=== PATIENT | male | born 1935 | race Caucasian/White ===

== ENCOUNTER 2017-04-17 14:35 | Observation (INO) | payer MEDICARE ==
[2017-04-17 14:56] VITALS: BMI 33.3
[2017-04-17] MEDS ORDERED: Senokot 8.6 MG TAB PO PRN (14:56)
[2017-04-17] MEDS ORDERED: Dextrose 50% Abboject 50 ML SYRINGE SLOW IVP PRN (14:56)
[2017-04-17] MEDS ORDERED: Eucerin (Mineral Oil/Petrolatum,White) 30 gm Jar TOP PRN (14:56)
[2017-04-17] MEDS ORDERED: Loratadine 10 MG TAB PO PRN (14:56)
[2017-04-17] MEDS ORDERED: Acetaminophen 325 MG TAB PO PRN (14:56)
[2017-04-17] MEDS ORDERED: Milk Of Magnesia 30 ML UDCUP PO PRN (14:56)
[2017-04-17] MEDS ORDERED: Sodium Chloride 0.65% Nasal 44 ML BOT EA NARE PRN (14:56)
[2017-04-17] MEDS ORDERED: HYDROcodone/Acetaminophen 5/325 mg Tablet PO PRN (14:56)
[2017-04-17] MEDS ORDERED: Loperamide HCl 2 MG CAP PO PRN (14:56)
[2017-04-17] MEDS ORDERED: Dextrose 5% in Water 1,000 ML IV PRN (14:56)
[2017-04-17] MEDS ORDERED: Artificial Tear Sol 15 ML BOT EA EYE PRN (14:56)
[2017-04-17] MEDS ORDERED: Diabetic Tussin 200 MG/10 ML UDCUP PO PRN (14:56)
[2017-04-17] MEDS ORDERED: HumaLOG 300 UNITS/3 ML VIAL SC PRN ×2 (14:56)
[2017-04-17] MEDS ORDERED: Chloraseptic Spray 180 ml Bottle PO PRN (14:56)
[2017-04-17] MEDS ORDERED: Mag-Al 1200 mg/1200 mg/30 ML UDCUP PO PRN (14:56)
[2017-04-17] MEDS ORDERED: hydrALAZINE 20 MG/ML VIAL SLOW IVP PRN (14:56)
[2017-04-17] MEDS ORDERED: Nitroglycerin 0.4 MG TAB (25 Tab Bottle) SL PRN (14:56)
[2017-04-17] MEDS ORDERED: Ondansetron HCl/PF 4 MG/2 ML Vial IVP PRN (14:56)
[2017-04-17] MEDS ORDERED: Ondansetron ODT 4 MG TAB PO PRN (14:56)
[2017-04-17] MEDS ORDERED: Zolpidem Tartrate 5 MG TAB PO PRN (14:56)
--- NOTE | 2017-04-17 16:20 | HP ---
PRIMARY CARE PHYSICIAN: Dr. Quiroz. PRIMARY OFFSET PRINTING OPERATOR: Dr. Hernandez. REASON FOR ADMISSION: Transfer from [facility] to our hospital for evaluation of synco pe. HISTORY OF PRESENT ILLNESS: An 82-year-old male with a history of coronary artery disease with multi ple stents as well as diabetes, hypertension, and dyslipidemia who was evaluated yesterday at the [facility] for near syncopal episode. The patient reports that yesterday when he went to post-office to send his package. He was fine when he entered the post office, but when he was standing, all of suddenly he felt nausea, diaphoreses an d he felt hot. He felt as if he is going to pass out and that is why he sat down, but he did not fee l any better. People around him helped him and he sat down on the chair where he had incontinence. Paramedics were called, but subsequently patient was taken outside of post-office and he felt a littl e bit better, but again he was feeling nausea and he was feeling very weak and that is why he was jus en to a local emergency room. At local emergency room, patient had routine vitals which was unremarkable. The patient was planned for admission to our hospital, but our hospital was full and that is why he was observed for a few ho urs at [facility]. As per report, the patient was bradycardic and they were thinking t hat the patient's syncopal episode was cardiogenic and that is why they decided to send him to our spital for further evaluation and Cardiology consultation. ER physician recommended full admission o n transfer. This morning, the patient was having chest pain and that was improved with nitroglycerin. PAST MEDICAL HISTORY: Hypertension, coronary artery disease with several stents, diabetes type 2, dy slipidemia, gastroesophageal reflux disease, osteoarthritis, benign enlargement of prostate, chronic iron deficiency anemia, chronic kidney disease stage 3, chronic diastolic heart failure, history of s olitary pulmonary nodule. PAST SURGICAL HISTORY: Tonsillectomy in 1949, hemorrhoidectomy in 1985, right total knee replacement in 2002, EGD in 2003, coronary angiography in 2004 with a stent placement, cataract surgery in 2006, cholecystectomy in 2008, repeat EGD in 2013, ablation by Dr. Ruby in [place] in 2015, colonoscopy in 2014. PAST PSYCHIATRIC HISTORY: Reviewed and negative. FAMILY HISTORY: The patient's father by age of 75 from [place]. Mother by age of 90 from [place] an d diagnosed with heart disease. Family history positive for heart disease, arthritis, hypertension, and CAD. Patient's sister from lung cancer. Patient has one daughter diagnosed with leukemia a nd alive. SOCIAL HISTORY: Patient is a former smoker. He stopped smoking in 1984. He denies any alcohol abus e. He denies any illicit drug abuse. He drinks 1 cup of coffee every morning. He is retired and he is . He lives by himself alone. He does not do any significant exercise and he does not hav e any pets. His daughter is surrogate decision maker. ALLERGIES: No known drug allergies. CURRENT HOME MEDICATIONS: Aspirin 81 mg p.o. daily, vitamin D3 of 1000 units p.o. daily, coenzyme Q1 0 of 200 mg p.o. daily, Flomax 0.4 mg p.o. at bedtime, Zocor 20 mg p.o. at bedtime, multivitamin 1 ta blet p.o. daily, metoprolol 100 mg twice daily, pravastatin 30 mg p.o. daily, Imdur 60 mg p.o. daily, Levemir 30 units subcutaneous daily, folic acid 1 mg p.o. daily, Flonase nasal spray daily, vitamin B12 of 1000 mcg p.o. daily, Plavix 75 mg p.o. daily. REVIEW OF SYSTEMS: The following complete review of systems was negative, unless otherwise mentioned in the HPI or below: Constitutional: Weight loss or gain, ability to conduct usual activities. Skin: Rash, itching. Eyes: Double vision, pain. ENT/Mouth: Nose bleeding, neck stiffness, pain, tenderness. Cardiovascular: Palpitations, dyspnea on exertion, orthopnea. Respiratory: Shortness of breath, wheezing, cough, hemoptysis, fever or night sweats. Gastrointestinal: Poor appetite, abdominal pain, heartburn, nausea, vomiting, constipation, or diarr hea. Genitourinary: Urgency, frequency, dysuria, nocturia. Musculoskeletal: Pain, swelling. Neurologic/Psychiatric: Anxiety, depression. Allergy/Immunologic: Skin rash, bleeding tendency. Please see my HPI for pertinent positives and negatives. All other review of systems reviewed and ne gative except as mentioned in the HPI. PHYSICAL EXAMINATION: VITAL SIGNS: Currently, temperature 97.8, pulse 57, respiratory rate 16, saturation 99%, blood press ure 160/71, weight 212 pound. GENERAL: Patient is currently alert, awake, no obvious acute distress. HEENT: Normocephalic, atraumatic. Eyes: Pupils round, reactive to light. Extraocular muscles inta ct. ENT: Oropharynx within normal limits. Moist mucous membranes. No oral lesions. No pharyngeal eryt bertha, no exudates. NECK: Supple, no JVD, no thyromegaly, no carotid bruit. LUNGS: Clear to auscultation without any rhonchi or rales. CARDIAC: S1, S2 regular. No murmur, no gallop, no rub. ABDOMEN: Soft, bowel sounds present, nontender, nondistended. No organomegaly, no mass, no suprapub ic tenderness. BACK: Unremarkable, no CVA tenderness. EXTREMITIES: Upper extremity passive movements of all joints are normal. Lower extremities no edema . Good peripheral pulsation. SKIN: No skin rash. HEMATOLOGICAL: No lymphadenopathy. PSYCHIATRIC: Normal affect. SIGNIFICANT LABS: CBC: WBC 9.6, hemoglobin 12.8, platelets 153. INR 1.1. BMP: Sodium 139, potass ium 3.9, chloride 106, carbon dioxide 19, BUN 17, creatinine 1.42, glucose 161, calcium 9.7. LFT: A ST 21, ALT 17, alkaline phosphatase 87, albumin 4.5. Cardiac enzymes negative. Chest x-ray based on my review, no acute cardiopulmonary process. EKG showing sinus arrhythmia, complete right bundle br anch block pattern, T-wave changes in lead 3. EMERGENCY ROOM COURSE: Patient was given yesterday aspirin in the emergency room and Zofran 4 mg. ASSESSMENT AND PLAN: 1. Near syncope. Differential diagnosis is bradycardia related versus vasovagal episode versus orth ostatic hypotension versus hypoglycemia. At this point, the patient will require admission to teleme try floor. We will do orthostatic vitals. We will obtain echocardiography to rule out any structura l and functional abnormality. We will monitor on telemetry floor for any kind of arrhythmia. We zayda l monitor for hypoglycemia. Primary care physician sent him here for cardiology evaluation and that is why we will consult Cardiology. I do not think that this patient will need any kind of pacemaker placement given his bradycardia, probably related with beta huang use. 2. Chest pain, rule out acute coronary syndrome. We will do serial cardiac enzymes x3 and will rule out acute coronary syndrome. This patient has severe coronary artery disease and several stents uday mandy. We will defer further decision to cardiology. 3. Hypertension. We will rule out orthostatic hypotension and we will resume patient's home medicat ion. 4. Diabetes type 2. We will watch for hypoglycemia. We will continue insulin as per sliding scale protocol. Diabetic diet will be given and will resume patient's long-acting insulin as per home dosa ge. 5. Dyslipidemia. We will continue Zocor 20 mg p.o. at bedtime and check lipid profile tomorrow morn ing. 6. Gastroesophageal reflux disease. We will continue Pepcid 20 mg p.o. twice daily. 7. Benign enlargement of prostate. We will continue Flomax 0.4 mg p.o. daily. 8. Iron deficiency anemia. We will continue ferrous sulfate 325 mg p.o. daily, folic acid 1 mg p.o. daily, vitamin B12 of 1000 mcg p.o. daily and patient's stool for guaiac is negative. 9. Chronic kidney disease, stage 3. We will monitor renal function. We will avoid nephrotoxic agen ts. 10. History of congestive heart failure. We will repeat echocardiography to assess ejection fractio n and other structural abnormality. Currently, patient is euvolemic. 11. Deep venous thrombosis prophylaxis. Lovenox 40 mg subcutaneously daily. 12. Gastrointestinal prophylaxis. Pepcid 20 mg p.o. daily. CODE STATUS: Patient is FULL CODE. Patient's daughter is surrogate decision maker. Disposition plan based on clinical course. Plan of care discussed with the patient in detail.
[2017-04-17] MEDS ORDERED: Cholestyramine/Aspartame 4 gm Packet PO PRN (18:19)
[2017-04-17 19:04] LABS: Troponin I Less than 0.010 ng/mL (< 0.028)
--- NOTE | 2017-04-17 20:05 | CON ---
DATE OF CONSULTATION: 04/17/2017 REASON FOR CONSULTATION: Presyncope. PRIMARY MOBILE BATTERY TECHNICIAN: Leena Hernandez M.D. HISTORY OF PRESENT ILLNESS: Mr. Townsend is a very pleasant 82-year-old gentleman with a previous histo ry of CAD, status post stent placement. He recently presented with a syncopal episode. He states he began with lightheadedness, dizziness and had a near syncopal episode. He states during the episode , he defecated. No loss of urine. He presented to the emergency room for further disposition. He w as found to be bradycardic and therefore transferred to [facility]. No chest pain or pressure note d. He did have a stress study performed in 09/2016 that was negative for ischemia. PAST MEDICAL HISTORY: CAD, hypertension, diabetes mellitus, hyperlipidemia, acid reflux, osteoarthri tis, BPH, chronic kidney disease, diastolic dysfunction, tonsillectomy, hemorrhoidectomy, total knee surgery, cholecystectomy, colonoscopy. FAMILY HISTORY: Positive for CAD. SOCIAL HISTORY: No current tobacco or alcohol use. ALLERGIES: None. HOME MEDICATIONS: Include aspirin, metoprolol, vitamin D, Zocor, pravastatin, folic acid, Plavix, vi tamin B12, Flonase, Imdur, multivitamin, Coenzyme Q. REVIEW OF SYSTEMS: A 10-point review of systems is reviewed and is as above, otherwise negative. PHYSICAL EXAMINATION: VITAL SIGNS: Blood pressure 116/71, pulse 57, temperature 97.8. GENERAL: Patient is a pleasant male who is in no acute distress. The patient appears his stated age. NEUROLOGIC: The patient is alert and oriented times 3 with no focal neurologic deficits. HEENT: Sclerae without icterus. Mouth has moist mucous membranes with normal pallor. NECK: No JVD. Carotid upstroke brisk. No bruits bilaterally. LUNGS: Clear to auscultation with unlabored respirations. BACK: No scoliosis or kyphosis. CARDIAC: Regular rate and rhythm with normal S1 and S2. No S3 or S4 noted. No significant rubs, murmurs, thrills, or gallops noted throughout the precordium. PMI is not displaced. There is no parasternal heave. ABDOMEN: Soft, nontender, nondistended. No peritoneal signs present. No hepatosplenomegaly. No abnormal striae. EXTREMITIES: 2+ femoral and 2+ dorsalis pedis pulses. No cyanosis, clubbing, or edema. SKIN: No gross abnormalities. PERTINENT LABORATORY DATA: Hemoglobin 11. Creatinine 1.36. IMPRESSION: 1. Presyncope. 2. Coronary artery disease. RECOMMENDATIONS: His whole symptoms really sounded cardiac in origin. His EKG shows right bundle br anch block with left axis deviation. This could certainly be the initial findings of sick sinus synd rai. We would recommend an echo with Doppler. We would also recommend monitoring overnight. If he has no significant dysrhythmias, would therefore recommend a 3-week event recorder. We would decrea se metoprolol 100 mg 1 p.o. b.i.d. to 50 mg b.i.d.
[2017-04-17] MEDS ORDERED: Tamsulosin HCl 0.4 MG CAP PO SCH (21:00)
[2017-04-17] MEDS ORDERED: (Arginine [L-Arginine] 500 MG) PO SCH (21:00)
[2017-04-17] MEDS ORDERED: Atorvastatin Calcium 10 MG TAB PO SCH (21:00)
[2017-04-17 22:23] LABS: Troponin I Less than 0.010 ng/mL (< 0.028)
[2017-04-18 05:30] LABS: #Eosinphils 0.5 thou/uL (0.0-0.7); #Lymphocytes 1.3 thou/uL (1.20-3.40); #Monocytes 0.9 thou/uL (0.11-0.59); #Neutrophils 5.1 thou/uL (1.40-6.50); %Basophils 0.4 % (0.0-1.0); %Eosinophils 6.7 % (0.0-10.0); %Lymphocytes 16.9 % (21.0-51.0); Hematocrit 35.6 % (42.0-52.0); Mean Platelet Volume 9.8 fL (7.4-10.4); Red Blood Cell (RBC) Count 3.76 mill/uL (4.70-6.10); White Blood Cell (WBC) Count 7.8 thou/uL (4.8-10.8)
[2017-04-18 05:50] LABS: ALT (SGPT) 14 U/L (8-55); AST (SGOT) 18 U/L (5-34); Alkaline Phosphatase 79 U/L (40-150); Anion Gap 11 mmol/L (10-20); BUN (Urea Nitrogen) 21 mg/dL (8.4-25.7); Bilirubin, Total 0.4 mg/dL (0.2-1.2); Calc. Creatinine Clearance 56 mL/min (70-130); Calcium 9.9 mg/dL (7.8-10.44); Carbon Dioxide 27 mmol/L (23-31); Chloride 105 mmol/L (98-107); Cholesterol 130 mg/dl (< 200 Desired); Estimated GFR-MDRD 49; Globulin 2.9 g/dL (2.4-3.5); LDL Cholesterol, Calculated 53 mg/dL; Protein, Total 6.9 g/dL (5.8-8.1)
[2017-04-18 05:52] LABS: Troponin I Less than 0.010 ng/mL (< 0.028)
[2017-04-18] MEDS ORDERED: Folic Acid 1 MG TAB PO SCH (09:00)
[2017-04-18] MEDS ORDERED: Cyanocobalamin (Vitamin B-12) 1,000 MCG TAB PO SCH (09:00)
[2017-04-18] MEDS ORDERED: Enoxaparin Sodium 40 MG/0.4 ML SYRINGE SC SCH (09:00)
[2017-04-18] MEDS ORDERED: Non-Formulary Item 1 EACH (Insulin Detemir [Levemir Flextouch] 30 UNIT) SC SCH (09:00)
[2017-04-18] MEDS ORDERED: Clopidogrel Bisulfate 75 MG TAB PO SCH (09:00)
[2017-04-18] MEDS ORDERED: Fluticasone Propionate Nasal Spray 16 gm Bottle NASAL SCH (09:00)
[2017-04-18] MEDS ORDERED: Famotidine 20 MG TAB PO SCH (09:00)
[2017-04-18] MEDS ORDERED: Prenatal Vitamin 1 TAB PO SCH (09:00)
[2017-04-18] MEDS ORDERED: Insulin Detemir 100 UNITS/ML 30 UNITS in Pre-Filled Syringe 1 EACH SC SCH (09:00)
[2017-04-18] MEDS ORDERED: Ubidecarenone 50 MG CAP PO SCH (09:00)
[2017-04-18] MEDS ORDERED: Metoprolol Tartrate 50 MG TAB PO SCH ×2 (10:30→21:00)
--- NOTE | 2017-04-18 10:54 | DIS ---
DATE OF ADMISSION: 04/17/2017 DATE OF DISCHARGE: 04/18/2017 PRIMARY CARE PHYSICIAN: Dr. Douglas Quiroz. DISCHARGE DISPOSITION: Home. PRIMARY DISCHARGE DIAGNOSES: 1. Near syncope/syncope. 2. Chest pain, ruled out acute coronary syndrome. SECONDARY DISCHARGE DIAGNOSES: Obesity, hypertension, gastroesophageal reflux disease, dyslipidemia, diabetes type 2, chronic kidney disease stage 3, coronary artery disease with multiple stents, benig n enlargement of prostate. PRIMARY PROCEDURE/OPERATION: None. RADIOLOGICAL INVESTIGATION: Patient had chest x-ray at the [facility], which was normal. SIGNIFICANT LABS: WBC 7.8, hemoglobin 12.0, platelets 124. Sodium 139, potassium 3.9, BUN 21, creat inine 1.39, glucose 161, calcium 9.9. LFT normal. Triglycerides 237. Cholesterol 130, LDL 53, HDL 30, BNP 130.9. Cardiac enzymes negative x3. DISCHARGE MEDICATIONS: L-arginine 500 mg p.o. b.i.d., aspirin 81 mg p.o. daily, vitamin D3 1000 unit s p.o. daily, cholestyramine 4 grams p.o. b.i.d. p.r.n., Plavix 75 mg p.o. daily, vitamin B12 1200 mc g p.o. daily, Flonase nasal spray daily, folic acid 1 mg p.o. daily, Levemir insulin 30 units subQ da joel, Imdur 60 mg p.o. daily, Prevacid 30 mg p.o. daily, vitamin 1 tablet p.o. daily, Zocor 2 0 mg p.o. at bedtime, Flomax 0.4 mg p.o. at bedtime and coenzyme Q10 200 mg p.o. daily. CONTRAINDICATIONS: None. CODE STATUS: FULL CODE. INPATIENT CONSULTANTS: Dr. Kieran Rosen was consulted while in hospital. He was suspecting sic k sinus syndrome and he recommended Holter monitoring for 3 weeks and he recommended to reduce dose o f metoprolol to 50 mg p.o. b.i.d. CONTRAINDICATION: None. CODE STATUS: FULL CODE. DISCHARGE PLAN: Post hospital, the patient will follow up with primary care physician as well as car diologist. HOSPITAL COURSE: An 82-year-old male with the above mentioned medical problems, who was initially ev aluated at [facility]. The patient initially went to [facility] for near synco pal episode. Patient was at the post office and all of suddenly, he was feeling diaphoresis, dizzine ss and nausea. Subsequently, he also had episode of chest pain. He was evaluated at the local emerg ency room and subsequently he was overnight observed at [facility] for further evaluation and ca rdiology evaluation. This patient was sent to our hospital. The next day, we kept him as an observa tion status. We did serial cardiac enzymes x3. The patient was taking metoprolol 100 mg p.o. twice daily and that is why he was having bradycardia episode, but that medication was discontinued. Then, his pulse was going to above 100. We consulted Cardiology and they are suspecting patient may have early signs of tachybrady syndrome versus sick sinus syndrome. At this point, Cardiology recommends the event recorder for 3 weeks and subsequently the patient will follow up with Cardiology to decide whether he needs pacemaker or not. While in hospital, we ruled out acute coronary syndrome. His telemetry showing is now sinus tachycar carlene and that is why we reduced dose of metoprolol to 50 mg twice daily. Rest of medication was chucky nued as per previous. The patient is seen and examined at bedside today. REVIEW OF SYSTEMS: Reviewed and negative. PHYSICAL EXAMINATION: VITAL SIGNS: Currently, temperature 98.4, pulse 89, respiratory rate 20, saturation 97%, blood pres sure 144/91. Weight 212 pounds. GENERAL: The patient is currently alert, oriented, no acute distress. HEAD: Normocephalic, atraumatic. LUNGS: Clear to auscultation without any rhonchi. CARDIAC: S1, S2 regular without any significant murmur. ABDOMEN: Soft and benign without any tenderness. EXTREMITIES: No edema. NEUROLOGIC: Nonfocal examination. At this point, Cardiology trying to arrange event recorder for 3 weeks and once that arranged, then t his patient is medically stable for discharge, we advised patient to reduced dose of metoprolol as ab ove as long as Cardiology okay, then we will consider discharging him later on today. The patient's behavioral science chair will decide whether he needs a pacemaker or not in the future.
[2017-04-18] MEDS ORDERED: Metoprolol Tartrate 25 MG TAB PO SCH (11:15)
--- NOTE | 2017-04-18 12:13 | PDOC.PN ---
- Subjective Encounter Start Date: 04/18/17 Encounter Start Time: 11:00 -: old records requested/rev Patient seen and examined. No new complaints. No overnight events - Objective Resuscitation Status: Resuscitation Status FULL:Full Resuscitation MAR Reviewed: Yes Vital Signs & Weight: Vital Signs (12 hours) Temp Pulse Resp BP BP BP BP 04/18/17 10:55 98.0 F 114 H 24 H 158/80 H 04/18/17 09:10 122 H 24 H 144/91 H 04/18/17 07:20 98.4 F 89 20 137/74 135/71 150/77 H 04/18/17 04:35 85 18 132/68 Pulse Ox 04/18/17 10:55 95 04/18/17 09:10 97 04/18/17 07:20 95 04/18/17 04:35 95 Weight Weight 212 lb 14.4 oz I&O: 04/17/17 04/18/17 04/19/17 06:59 06:59 06:59 Intake Total 240 Balance 240 Result Diagrams: 04/18/17 05:09 04/18/17 05:09 Additional Labs: Accuchecks 04/18/17 04/17/17 04/17/17 11:36 20:28 16:49 POC Glucose 206 H 165 H 135 H Radiology Reviewed by me: Yes EKG Reviewed by me: Yes (sinus tachy) Phys Exam - Physical Examination Constitutional: NAD HEENT: PERRLA, moist MMs, sclera anicteric Neck: no JVD, supple Respiratory: no wheezing, no rales, no rhonchi Cardiovascular: RRR, no significant murmur, no rub Gastrointestinal: soft, non-tender, no distention, positive bowel sounds Musculoskeletal: no edema, pulses present Neurological: non-focal, normal sensation Psychiatric: normal affect, A&O x 3 Skin: no rash, normal turgor Dx/Plan (1) Chest pain Code(s): R07.9 - CHEST PAIN, UNSPECIFIED Status: Acute (2) Syncope Code(s): R55 - SYNCOPE AND COLLAPSE Status: Acute (3) BPH (benign prostatic hyperplasia) Code(s): N40.0 - BENIGN PROSTATIC HYPERPLASIA WITHOUT LOWER URINRY TRACT SYMP Status: Chronic (4) CAD (coronary artery disease) Code(s): I25.10 - ATHSCL HEART DISEASE OF [place] CORONARY ARTERY W/O ANG PCTRS Status: Chronic (5) CKD (chronic kidney disease), stage III Code(s): N18.3 - CHRONIC KIDNEY DISEASE, STAGE 3 (MODERATE) Status: Chronic (6) Diabetes type 2, controlled Code(s): E11.9 - TYPE 2 DIABETES MELLITUS WITHOUT COMPLICATIONS Status: Chronic (7) Dyslipidemia Code(s): E78.5 - HYPERLIPIDEMIA, UNSPECIFIED Status: Chronic (8) GERD (gastroesophageal reflux disease) Code(s): K21.9 - GASTRO-ESOPHAGEAL REFLUX DISEASE WITHOUT ESOPHAGITIS Status: Chronic (9) Hypertension Code(s): I10 - ESSENTIAL (PRIMARY) HYPERTENSION Status: Chronic (10) Obesity (BMI 30.0-34.9) Code(s): E66.9 - OBESITY, UNSPECIFIED Status: Chronic - Plan cont current plan of care * medication reviewed as below * symptomatic treatment * see discharge summery * medically stable for discharge.. Review of Systems - Review of Systems ENT: negative: Ear Pain, Ear Discharge, Nose Pain, Nose Discharge, Nose Congestion, Mouth Pain, Mouth Swelling, Throat Pain, Throat Swelling, Other Respiratory: negative: Cough, Dry, Shortness of Breath, Hemoptysis, SOB with Excertion, Pleuritic Pain, Sputum, Wheezing Cardiovascular: negative: chest pain, palpitations, orthopnea, paroxysmal nocturnal dyspnea, edema, light headedness, other Gastrointestinal: negative: Nausea, Vomiting, Abdominal Pain, Diarrhea, Constipation, Melena, Hematochezia, Other Genitourinary: negative: Dysuria, Frequency, Incontinence, Hematuria, Retention , Other Musculoskeletal: negative: Neck Pain, Shoulder Pain, Arm Pain, Back Pain, Hand Pain, Leg Pain, Foot Pain, Other Skin: negative: Rash, Lesions, Jason, Bruising, Other - Medications/Allergies Allergies/Adverse Reactions: Allergies Allergy/AdvReac Type Severity Reaction Status Date / Time No Known Drug Allergies Allergy Verified 07/13/14 17:32 Medications: Current Medications Acetaminophen (Tylenol) 650 mg PO Q4H PRN PRN Reason: Headache/Fever or Pain Last Admin: 04/18/17 09:36 Dose: 650 mg Hydrocodone Bitart/Acetaminophen ([place] 5/325) 1 tab PO Q4H PRN PRN Reason: Moderate Pain (4-6) Al Hydroxide/Mg Hydroxide (Maalox) 30 ml PO Q6H PRN PRN Reason: Heartburn or Indigestion Artificial Tears (Tears Renewed 15ml Bottle) 0 drop EA EYE PRN PRN PRN Reason: Dry Eyes Aspirin (Aspirin Chewable) 81 mg PO DAILY [facility] Last Admin: 04/18/17 08:40 Dose: 81 mg Atorvastatin Calcium (Lipitor) 10 mg PO HS [facility] Last Admin: 04/17/17 21:45 Dose: 10 mg Cholecalciferol (Vitamin D3) 1,000 units PO DAILY [facility] Last Admin: 04/18/17 08:37 Dose: 1,000 units Cholestyramine Resin (Questran Light) 0 gm PO BIDPRN PRN PRN Reason: Diarrhea/Loose Stools Clopidogrel Bisulfate (Plavix) 75 mg PO DAILY [facility] Last Admin: 04/18/17 08:39 Dose: 75 mg Coenzyme Q10 (Coenzyme Q10) 200 mg PO DAILY [facility] Last Admin: 04/18/17 08:38 Dose: 200 mg Cyanocobalamin (Vitamin B-12) 1,200 mcg PO DAILY [facility] Last Admin: 04/18/17 08:37 Dose: 1,200 mcg Dextrose/Water (Dextrose 50%) 25 gm SLOW IVP PRN PRN PRN Reason: Hypoglycemia Enoxaparin Sodium (Lovenox) 40 mg SC 0900 [facility] Last Admin: 04/18/17 09:48 Dose: 40 mg Famotidine (Pepcid) 20 mg PO DAILY [facility] Last Admin: 04/18/17 08:40 Dose: 20 mg Fluticasone Propionate (Flonase Nasal [place]) 0 gm NASAL DAILY [facility] Last Admin: 04/18/17 09:49 Dose: Not Given Folic Acid (Folvite) 1 mg PO DAILY [facility] Last Admin: 04/18/17 08:39 Dose: 1 mg Glucagon (Glucagon) 1 mg IM PRN PRN PRN Reason: Hypoglycemia Guaifenesin (Robitussin Sf) 200 mg PO Q4H PRN PRN Reason: Cough Hydralazine HCl (Apresoline) 10 mg SLOW IVP Q4H PRN PRN Reason: Systolic BP > 180 Dextrose/Water (D5w) 1,000 mls @ 0 mls/hr IV .Q0M PRN; As Directed PRN Reason: Hypoglycemia Insulin Detemir 30 units/ (Miscellaneous Medication) 0.3 mls @ 0 mls/hr [facility] Last Admin: 04/18/17 09:48 Dose: 0.3 mls Insulin Human Lispro (Humalog) 0 units SC .MODERATE SLIDING SC PRN PRN Reason: Moderate [place] Scale Insulin Human Lispro (Humalog) 0 units SC .BEDTIME SLIDING SC PRN PRN Reason: Bedtime [place] Scale Isosorbide Mononitrate (Imdur) 60 mg PO DAILY [facility] Last Admin: 04/18/17 08:39 Dose: 60 mg Loperamide HCl (Imodium) 2 mg PO PRN PRN PRN Reason: Diarrhea/Loose Stools Loratadine (Claritin) 10 mg PO DAILYPRN PRN PRN Reason: Sinus Symptoms Magnesium Hydroxide (Milk Of Magnesium) 30 ml PO DAILYPRN PRN PRN Reason: Constipation Metoprolol Tartrate (Lopressor) 50 mg PO BID [facility] Metoprolol Tartrate (Lopressor) 50 mg PO NOW [facility] Stop: 04/18/17 12:30 Last Admin: 04/18/17 11:40 Dose: 50 mg Mineral Oil/White Petrolatum (Eucerin Cream) 0 gm TOP BIDPRN PRN PRN Reason: Dry Skin Nitroglycerin (Nitrostat) 0.4 mg SL Q5MIN PRN PRN Reason: Chest Pain Ondansetron HCl (Zofran Odt) 4 mg PO Q6H PRN PRN Reason: Nausea/Vomiting Ondansetron HCl (Zofran) 4 mg IVP Q6H PRN PRN Reason: Nausea/Vomiting Phenol (Chloraseptic [place] 180 Ml Bot) 0 ml PO PRN PRN PRN Reason: Sore Throat Multivit/Folic Acid/Iron ( Vitamin) 1 tab PO DAILY [facility] Last Admin: 04/18/17 08:37 Dose: 1 tab Senna (Senokot) 2 tab PO HSPRN PRN PRN Reason: Constipation Sodium Chloride ([place] Nasal [place] 0.65%) 0 ml EA NARE QIDPRN PRN PRN Reason: Nasal Congestion Tamsulosin HCl (Flomax) 0.4 mg PO HS [facility] Last Admin: 04/17/17 21:45 Dose: 0.4 mg Zolpidem Tartrate (Ambien) 5 mg PO HSPRN PRN PRN Reason: Insomnia
--- NOTE | 2017-04-18 12:52 | ULT ---
BILATERAL CAROTID DUPLEX ULTRASOUND: HISTORY: Headache. TECHNIQUE: Kelly scale ultrasound with color flow and spectral Doppler imaging of the extracranial carotid artery systems is performed bilaterally. FINDINGS: There is plaque formation noted on both sides in the common carotid, internal carotid, and external c arotid arteries. The peak systolic velocity in the right ICA measures 84 cm/s with an end-diastolic velocity of 22 cm/ s and a systolic ratio of 1.0. The peak systolic velocity in the left ICA measures 112 cm/s with an end-diastolic velocity of 14 cm/ s and a systolic ratio of 2.1. Flow in both vertebral arteries remains antegrade. The peak systolic velocity in the right [place] measures 254 cm/s and in the left ECA measures 198 cm/s. IMPRESSION: 1. No evidence of hemodynamically significant stenosis in either internal carotid artery. 2. High-grade stenotic changes in the external carotid arteries on either side. POS: [facility]
--- NOTE | 2017-04-18 14:27 | EKG ---
Test Reason : Blood Pressure : / mmHG Vent. Rate : 064 BPM Atrial Rate : 064 BPM P-R Int : 218 ms QRS Dur : 152 ms QT Int : 486 ms P-R-T Axes : 028 270 040 degrees QTc Int : 501 ms Sinus rhythm with marked sinus arrhythmia with 1st degree A-V block Left axis deviation Right bundle branch block Abnormal ECG Confirmed by ILENE PATTON ([id number]) on 04/18/2017 2:27:16 PM Referred By: BEN Confirmed By:ILENE PATTON
[2017-04-18 15:50] VITALS: BP 119/61; TEMP 97.5
--- NOTE | 2017-04-18 15:55 | EKG ---
Test Reason : RHYTHM CHG Blood Pressure : / mmHG Vent. Rate : 111 BPM Atrial Rate : 111 BPM P-R Int : 000 ms QRS Dur : 138 ms QT Int : 364 ms P-R-T Axes : 000 257 043 degrees QTc Int : 495 ms Sinus tachycardia Right bundle branch block Abnormal ECG Confirmed by ILENE PATTON ([id number]) on 04/18/2017 3:55:35 PM Referred By: BEN Confirmed By:ILENE PATTON
--- NOTE | 2017-04-18 19:32 | PRG ---
DATE OF SERVICE: 04/18/2017 SUBJECTIVE: Mr. Townsend is doing well. He did state he was not feeling well. His heart rate increase d to 114. After reviewing his telemetry monitoring, this appeared to be sinus tachycardia. This was confirmed on EKG. His metoprolol was decreased from 100 mg 1 p.o. b.i.d. down to 50 mg 1 p.o. b.i.d . OBJECTIVE: VITAL SIGNS: Blood pressure 150/77 and temperature 98.4. LUNGS: Clear to auscultation. HEART: Regular rate and rhythm. ABDOMEN: Soft, nontender and nondistended. EXTREMITIES: No edema. IMPRESSION: 1. Presyncope. 2. Tachycardia. 3. Coronary artery disease. RECOMMENDATIONS: Mr. Townsend is doing well. His echo appears to be within normal limits. It will be okay from my standpoint to DC home with a 3-week of event recorder to assess for any significant dysr hythmias. His last stress test was performed in 09/2016 and it was negative for ischemia. He says h leonarda has undergone multiple catheterizations and is not interested in proceeding with any further. Ther e were no current indications.
== END 2017-04-18 17:20 | disposition home or self-care (01) ==
LOC: 2SW 14:35 → INTOOBSV 14:35
PROVIDERS: ADMIT Internal Medicine; ATTEND Internal Medicine
DX: R55 Syncope and collapse (principal); R07.9 Chest pain, unspecified; K21.9 Gastro-esophageal reflux disease without esophagitis; E78.5 Hyperlipidemia, unspecified; I25.10 Atherosclerotic heart disease of native coronary artery without angina pectoris; N40.0 Benign prostatic hyperplasia without lower urinary tract symptoms; I12.9 Hypertensive chronic kidney disease with stage 1 through stage 4 chronic kidney disease, or unspecified chronic kidney disease; E11.22 Type 2 diabetes mellitus with diabetic chronic kidney disease; N18.3 Chronic kidney disease, stage 3 (moderate); D63.1 Anemia in chronic kidney disease; M19.90 Unspecified osteoarthritis, unspecified site; E66.9 Obesity, unspecified; Z68.33 Body mass index [BMI] 33.0-33.9, adult; Z87.891 Personal history of nicotine dependence; Z82.49 Family history of ischemic heart disease and other diseases of the circulatory system; Z80.1 Family history of malignant neoplasm of trachea, bronchus and lung; Z95.5 Presence of coronary angioplasty implant and graft; Z96.651 Presence of right artificial knee joint; Z90.49 Acquired absence of other specified parts of digestive tract; Z90.89 Acquired absence of other organs; Z98.890 Other specified postprocedural states; Z79.82 Long term (current) use of aspirin; Z79.4 Long term (current) use of insulin; Z79.51 Long term (current) use of inhaled steroids; Z79.01 Long term (current) use of anticoagulants; Z79.899 Other long term (current) drug therapy
CPT/HCPCS: 80053; 80061; 82553 ×3; 82962 ×2; 83880; 84484 ×3; 85025; 93005 ×2; 93306; 93880; 96372; G0378; G0379; 36415; 36416; 93010; J1650; J1815

== ENCOUNTER 2017-09-12 12:40 | Inpatient (IN) | payer MEDICARE ==
[~2017-09-12 12:40] MED LIST: ISOVUE-370 76%-LOCM 1 ML ONE
[2017-09-12] MEDS ORDERED: Acetaminophen 500 MG TAB ONE ×2 (13:38→13:41)
[2017-09-12 13:51] LABS: Hemoglobin 12.7 g/dL (14.0-18.0); Mean Corpuscular HGB CONC 34.4 g/dL (32.0-36.0); Mean Corpuscular Hemoglobin 32.2 pg (27.0-31.0); Mean Corpuscular Volume 93.5 fl (80.0-94.0); Mean Platelet Volume 9.8 fL (7.4-10.4); Platelet Count 107 thou/uL (130-400); Red Blood Cell (RBC) Count 3.96 mill/uL (4.70-6.10); White Blood Cell (WBC) Count 13.8 thou/uL (4.8-10.8)
[2017-09-12 14:14] LABS: Band 12 % (5-11); Eosinophils 1 % (0-10); Large Platelets SLIGHT; Lymphocytes 2 % (21-51); MDiff Complete? YES; Monocytes 10 % (0-10); Neutrophil 75 % (42-75); PLT Morphology Comment Appears Decreased; RBC Morphology Normal
[2017-09-12 14:16] LABS: ALT (SGPT) 20 U/L (8-55); AST (SGOT) 42 U/L (5-34); Albumin 4.1 g/dL (3.4-4.8); Alkaline Phosphatase 94 U/L (40-150); Anion Gap 17 mmol/L (10-20); BUN (Urea Nitrogen) 14 mg/dL (8.4-25.7); Bilirubin, Total 0.9 mg/dL (0.2-1.2); Calc. Creatinine Clearance 0 mL/min (70-130); Calcium 9.2 mg/dL (7.8-10.44); Carbon Dioxide 19 mmol/L (23-31); Chloride 105 mmol/L (98-107); Estimated GFR-MDRD 51; Globulin 3.5 g/dL (2.4-3.5); Glucose 163 mg/dL (83-110); Potassium 4.7 mmol/L (3.5-5.1); Protein, Total 7.6 g/dL (5.8-8.1); Sodium 136 mmol/L (136-145)
[2017-09-12 14:19] LABS: Bilirubin Negative (Negative); Blood, Urine Negative (Negative); Clarity CLEAR (Clear); Glucose, Urine (Dipstick) Negative (Negative); Leukocyte Negative (Negative); Nitrite Negative (Negative); Protein, Urine (Dipstick) 100 mg/dL (Neg-Trace); Specific Gravity, Urine 1.026 (1.002-1.036); Urobilinogen 0.2 mg/dL (0.2-1.0)
[2017-09-12 14:21] LABS: Bacteria/HPF None Seen HPF (None Seen); Hyaline Casts/LPF 4-6 HYALINE CAST LPF (0-3 Hyaline); Pathc Cast-AUWi Flag 0.58 (0-2.49); RBC/HPF 0-3 HPF (0-3); Squamous Epithelial 0-3 HPF (0-3); WBC/HPF 0-3 HPF (0-3)
--- NOTE | 2017-09-12 14:37 | RAD ---
SINGLE VIEW OF THE CHEST: COMPARISON: 04/16/17. HISTORY: Nausea, vomiting, chest pain, and shortness of breath. FINDINGS: A single view of the chest is limited secondary to rotation. The cardiomediastinal silhouette is upp er limits of normal in size. There is stable deviation of the trachea to the right. No consolidatio n, mass, or pleural effusion are seen. IMPRESSION: No evidence of acute cardiopulmonary disease. POS: [facility]
[2017-09-12] MEDS ORDERED: Piperacillin/Tazobactam 4.5 GM VIAL ONE (15:36)
--- NOTE | 2017-09-12 15:44 | CT ---
CT OF THE ABDOMEN AND PELVIS WITH CONTRAST: 09/12/17 COMPARISON: 04/18/16. HISTORY: Abdominal pain, black diarrhea, nausea, vomiting and chest pain. TECHNIQUE: Multiple contiguous axial images were obtained in a CT of the abdomen and pelvis with contrast. PO co ntrast was administered but not allowed sufficient time to traverse to the level of the colon. Moser l reformats were performed. FINDINGS: The patient is status post cholecystectomy. The kidneys are small. No focal renal abnormality is seen . The liver, adrenal glands, spleen, and pancreas are unremarkable. There is thickening in the wall of the right colon and transverse colon with subtle surrounding stran ding change. A few scattered diverticula are seen throughout the colon. The small bowel and appendix are unremarkable. No abdominal or pelvic lymphadenopathy are seen. Atherosclerotic calcifications are seen in the aorta . Degenerative changes are seen in the spine. The abdominal wall soft tissues and visualized inferior t horax are unremarkable. IMPRESSION: 1. There appears to be colitis of the right colon and transverse colon. This is nonspecific and could be secondary to an infectious or inflammatory colitis. Ischemic colitis is also possible but le ss likely. 2. Diverticulosis without evidence of acute diverticulitis. POS: [facility]
[2017-09-12] MEDS ORDERED: Pantoprazole 80 MG, Admixture Fee 1 EACH in Sodium Chloride 0.9% 100 ML IVP SCH (15:45)
[2017-09-12] MEDS ORDERED: Zolpidem Tartrate 5 MG TAB PO PRN (16:28)
[2017-09-12] MEDS ORDERED: Ondansetron HCl/PF 4 MG/2 ML Vial IVP PRN (16:28)
[2017-09-12] MEDS ORDERED: Dextrose 50% Abboject 50 ML SYRINGE SLOW IVP PRN (16:43)
[2017-09-12] MEDS ORDERED: Dextrose 5% in Water 1,000 ML IV PRN (16:43)
[2017-09-12] MEDS ORDERED: Pantoprazole 80 MG in Sodium Chloride 0.9% 100 ML IVPB SCH (16:45)
[2017-09-12 17:11] LABS: Hemoglobin A1c 6.3 % (4.0-6.0)
[2017-09-12] MEDS ORDERED: Acetaminophen 325 MG TAB ONE (17:28)
[2017-09-12] MEDS ORDERED: diphenhydrAMINE 50 MG/ML VIAL ONE (17:39)
[2017-09-12] MEDS ORDERED: Ondansetron ODT 4 MG TAB ONE (17:52)
[2017-09-12] MEDS ORDERED: Ibuprofen 200 MG TAB ONE (18:21)
[2017-09-12 18:42] LABS: CKMB 0.6 ng/mL (0-6.6); Troponin I 0.027 ng/mL (< 0.028)
[2017-09-12] MEDS ORDERED: Famotidine 20 MG TAB PO SCH (21:00)
--- NOTE | 2017-09-12 21:47 | HP ---
DATE OF ADMISSION: 09/12/2017 CHIEF COMPLAINT: GI bleed, fevers, abdominal pain, and chest pain. HISTORY OF PRESENT ILLNESS: This is an 82-year-old male who is being admitted to the [facility] of GI bleed. Family is at bedside who also provides history. Per patient's family, the patient boucher s had black tarry stools for years on and apparently takes aspirin, Plavix. Does have a history of 1 4 different stents at different locations and cardiac vessels; however, all family members state that they were told that the stents were not in the larger vessels, but more so on the smaller vessels of the heart. The patient sees Dr. Hernandez, last seen a few months back, cannot recall when, but more tony n 6 months ago, also states that he has had a colonoscopy in the past and was told that he does have diverticular disease. The patient states that he came in because of weakness and worsening of his ab dominal pain, and GI bleed and then he noted to have some chest discomfort as well. Patient at this point in time, denies any nausea, vomiting, diarrhea, constipation, chest pain, fevers, or shortness of breath. Family at the bedside. The patient states that this has not been before and he was told that it was a diverticular bleed. However, last time, the chest pain was not present. Patient other garibay denies any alleviating or aggravating factors. No other associated symptoms or complaints. The patient was seen and examined in the ER with family at bedside. All questions were answered. ALLERGIES: No known drug allergies. PAST MEDICAL HISTORY: Positive for GI bleed; hypertension; GERD; diabetes mellitus, type 2; coronary artery disease as well as dyslipidemia; CKD, stage 3; and BPH. FAMILY HISTORY: Positive for hypertension and diabetes on both sides. HOME MEDICATIONS: See MAR. SOCIAL HISTORY: Denies any smoking or drinking. Apparently has quit smoking 30 years ago, was a hea vy smoker before that. REVIEW OF SYSTEMS: All systems reviewed. Pertinent positives in the HPI, otherwise negative. PHYSICAL EXAMINATION: VITAL SIGNS: Blood pressure is 136/88, temperature was apparently slightly elevated at 101 at presen tation to the ER, respiratory rate of 18. O2 saturations at 98% on room air. GENERAL: The patient in no acute distress, lying in bed. HEENT: Pupils are equal, round, and react to light and accommodation. Normocephalic, atraumatic. E xtraocular muscles intact. Nontender, mobile thyroid appreciated. Oral cavity moist and pink. CARDIOVASCULAR: Regular rate and rhythm. S1 and S2. No murmurs, rubs, or gallops appreciated. PULMONARY: Aerating well. No acute respiratory distress. Clear to auscultation bilaterally. No wh eezing, rales, or rhonchi appreciated. ABDOMEN: Positive bowel sounds, soft, nontender on the right side; however, slight tenderness to pal pation of the left flank and left lower quadrant. The patient does not have any rebound or guarding noted. EXTREMITIES: 2+ peripheral pulses. Trace edema in bilateral lower extremities, otherwise no cyanosi s or clubbing noted. NEUROLOGIC: Cranial nerves II through XII intact. No loss of motor or sensory function. SKIN: Normal turgor in all salazar and no rashes noted. LABORATORY AND DIAGNOSTIC DATA: CBC: WBC count slightly elevated at 14, hemoglobin normal at 13, he matocrit 37, platelet count of 107. Basic metabolic panel shows a creatinine of 1.33, bicarbonate of 19, glucose of 163, otherwise normal chemistry panel. Urinalysis positive for protein as well as hy mirza casts. Patient had a chest x-ray performed as well as a CT of the abdomen. The patient's CT o f the abdomen shows that there is some colitis present, more on the transverse and the right colon as well as diverticulosis with no evidence of acute diverticulitis. Chest x-ray shows no acute cardiop ulmonary disease processes. ASSESSMENT: 1. Abdominal pain. 2. Colitis. 3. Gastrointestinal bleed. 4. Coronary artery disease. 5. Hypertension. 6. Hyperlipidemia. 7. Diabetes mellitus type 2. PLAN: Admit to telemetry to Internal Medicine team. We will consult GI. Place patient n.p.o. past midnight for probable scope. We will also consult Cardiology for evaluation and possible adjustment of his home medications. The patient's last stent according to the family was 10 years ago, perhaps the Plavix can be discontinued if okay with Cardiology. The patient is familiar with Dr. Hernandez. We w ill consult Dr. Hernandez for further input. Place the patient on Protonix drip. Serial troponins. We w ill obtain repeat hemoglobin in the evening as well as one tomorrow morning. Also, give the patient normal saline at 75 mL an hour. We will start the patient on Flagyl as well for the concern for coli tis. Obtain blood cultures, insulin for diabetes mellitus and we will obtain an A1c to see how well his blood sugars are controlled at home. Patient wishes to remain a FULL CODE at this point in time. Case and plan discussed with the patient and family at length. They understand and agree with this plan.
[2017-09-12 22:14] LABS: Hemoglobin 12.2 g/dL (14.0-18.0)
[2017-09-13 00:05] VITALS: BMI 24.0
[2017-09-13] MEDS: metroNIDAZOLE 500 MG in Premix Bag 1 BAG IVPB SCH ×4 (02:43→17:28)
[2017-09-13 06:06] LABS: Anion Gap 12 mmol/L (10-20); BUN (Urea Nitrogen) 16 mg/dL (8.4-25.7); Calc. Creatinine Clearance 49 mL/min (70-130); Calcium 8.7 mg/dL (7.8-10.44); Carbon Dioxide 20 mmol/L (23-31); Chloride 109 mmol/L (98-107); Estimated GFR-MDRD 50; Glucose 140 mg/dL (83-110); Potassium 3.3 mmol/L (3.5-5.1); Sodium 138 mmol/L (136-145)
[2017-09-13] MEDS: Sodium Chloride 0.9% 1,000 ML IV SCH (07:55)
[2017-09-13] MEDS: Simvastatin 20 MG TAB PO SCH ×2 (07:56→21:10)
[2017-09-13] MEDS: Tamsulosin HCl 0.4 MG CAP PO SCH ×2 (07:57→21:10)
[2017-09-13] MEDS: Folic Acid 1 MG TAB PO SCH (08:32)
[2017-09-13] MEDS: Clopidogrel Bisulfate 75 MG TAB PO SCH (08:32)
[2017-09-13 08:43] LABS: Band 27 % (5-11); Hemoglobin 12.3 g/dL (14.0-18.0); Lymphocytes 7 % (21-51); MDiff Complete? YES; Mean Corpuscular HGB CONC 33.9 g/dL (32.0-36.0); Mean Corpuscular Volume 94.3 fl (80.0-94.0); Mean Platelet Volume 9.4 fL (7.4-10.4); Monocytes 11 % (0-10); Neutrophil 54 % (42-75); PLT Morphology Comment Appears Decreased; Platelet Count 103 thou/uL (130-400); RBC Distribution Width 14.3 % (11.5-14.5); RBC Morphology Normal; Reactive Lymphocytes 1 % (0-10); Red Blood Cell (RBC) Count 3.84 mill/uL (4.70-6.10); White Blood Cell (WBC) Count 10.1 thou/uL (4.8-10.8)
[2017-09-13] MEDS: Insulin Glargine 30 UNITS in Pre-Filled Syringe 1 EACH SC SCH (08:48)
[2017-09-13] MEDS ORDERED: Non-Formulary Item 1 EACH (Insulin Detemir [Levemir Flextouch] 30 UNIT) SC SCH (09:00)
--- NOTE | 2017-09-13 11:35 | PQF ---
CLINICAL DOCUMENTATION IMPROVEMENT CLARIFICATION FORM: ICD-10 Updated PLEASE DO AN ADDENDUM TO THE PROGRESS NOTE WITH ANY DOCUMENTATION UPDATES OR ADDITIONS AND CARRY THROUGH TO DC SUMMARY. THANK YOU. DATE: 09/13/17 ATTN: DR. VASQUEZ Please exercise your independent, professional judgment in responding to the clarification form. Clinical indicators are provided on the bottom of this form for your review Please check appropriate box(es): [ x ] Sepsis due to: (Pna, UTI, gangrenous gall bladder, etc.) colitis____ Due to: [ ] Device (please specify) [ ] Implant [ ] Graft [ ] Infusion [ ] SIRS due to non-infectious process (please specify etiology) [ ] with organ dysfunction [ ] without organ dysfunction [ ] Severe sepsis with acute organ dysfunction of: (Examples: respiratory failure, encephalopathy, acute kidney failure, other) [ ] Septic Shock [ ] Localized infection without sepsis [ ] Other diagnosis [ ] Unable to determine In addition, please specify: Present on Admission (POA): [ x ] Yes [ ] No [ ] Unable to determine For continuity of documentation, please document condition throughout progress notes and discharge summary. Thank You. CLINICAL INDICATORS - SIGNS / SYMPTOMS / LABS ER NOTE: "SEPSIS" PULSE 135 RR 41 TEMP 103.2 WBC 13.8 RISKS: COLITIS MULTIPLE COMORBIDITIES ADVANCED AGE TREATMENT: IV FLUIDS (ER-PRESENT) IV VANCOMYCIN (ER) IV ZOSYN (ER) BLOOD AND STOOL CULTURES TELEMETRY MONITORING (This form is maintained as a part of the permanent medical record) 2014 [employer] All Rights Reserved [email or web address] Office: [phone] [facility]
--- NOTE | 2017-09-13 11:42 | PDOC.PN ---
- Subjective Encounter Start Date: 09/13/17 Encounter Start Time: 11:40 Patient seen and examined, EGD for today, continues to have black stools, no other issues, family at bedside, all questions answered. - Objective Vital Signs & Weight: Vital Signs (12 hours) Temp Pulse Resp BP Pulse Ox 09/13/17 03:44 99.3 F 96 16 141/63 H 09/13/17 00:00 97.1 F L 102 H 16 171/85 H 95 Weight Admit Weight 181 lb 14.4 oz Weight 181 lb 14.4 oz Result Diagrams: 09/13/17 05:29 09/13/17 05:29 Additional Labs: Accuchecks 09/13/17 09/12/17 09/12/17 06:51 21:35 17:12 POC Glucose 147 H 141 H 160 H Phys Exam - Physical Examination Constitutional: NAD HEENT: PERRLA, moist MMs, sclera anicteric Neck: no nodes, no JVD, supple, full ROM Respiratory: no wheezing, no rales, no rhonchi Cardiovascular: RRR, no significant murmur, no rub Gastrointestinal: soft, non-tender, no distention, positive bowel sounds Musculoskeletal: pulses present, edema present (trace B/L LE) Neurological: non-focal, normal sensation, moves all 4 limbs Psychiatric: normal affect, A&O x 3 Skin: no rash, normal turgor Dx/Plan (1) GI bleed Code(s): K92.2 - GASTROINTESTINAL HEMORRHAGE, UNSPECIFIED Status: Acute (2) CKD (chronic kidney disease), stage III Code(s): N18.3 - CHRONIC KIDNEY DISEASE, STAGE 3 (MODERATE) Status: Chronic (3) Diabetes type 2, controlled Code(s): E11.9 - TYPE 2 DIABETES MELLITUS WITHOUT COMPLICATIONS Status: Chronic (4) Dyslipidemia Code(s): E78.5 - HYPERLIPIDEMIA, UNSPECIFIED Status: Chronic (5) GERD (gastroesophageal reflux disease) Code(s): K21.9 - GASTRO-ESOPHAGEAL REFLUX DISEASE WITHOUT ESOPHAGITIS Status: Chronic (6) Hypertension Code(s): I10 - ESSENTIAL (PRIMARY) HYPERTENSION Status: Chronic (7) Obesity (BMI 30.0-34.9) Code(s): E66.9 - OBESITY, UNSPECIFIED Status: Chronic - Plan * EGD for today * cont abx * sepsis due to colitis, present at time of admission, cont abx for now * IVFs * no other changes * GI following * Hgb stable * case and plan d/w patient and family at length, they understand and agree with this plan
[2017-09-13] MEDS ORDERED: Lidocaine 1% PF 5 ML VIAL ONE (14:39)
[2017-09-13] MEDS ORDERED: PROPOFOL 200 MG/20 ML VIAL ONE (14:39)
[2017-09-13] MEDS ORDERED: Benzocaine 20% Spray 60 ML CAN ONE (14:49)
[2017-09-13 18:04] LABS: Troponin I 0.075 ng/mL (< 0.028)
[2017-09-13] MEDS: Pantoprazole 80 MG, Admixture Fee 1 EACH in Sodium Chloride 0.9% 100 ML IVPB SCH (19:17)
--- NOTE | 2017-09-13 22:41 | OP ---
DATE OF PROCEDURE: 09/13/2017 OPERATIVE PROCEDURES: 1. Esophagogastroduodenoscopy. 2. Esophageal dilation with Liu sizes 46, 48, 50 Austrian in diameter. PREOPERATIVE DIAGNOSES: History of black tarry stool over the last 48 hours and also history of dysp hagia intermittent. POSTOPERATIVE DIAGNOSES: 1. Esophageal ring, nonobstructing. 2. Markedly hypertrophied polypoid-appearing gastric mucosa. 3. Gastric polyps. No biopsies taken as he is on Plavix. 4. Normal duodenum. Because of history of dysphagia and also a ring in the esophagus, sterile dilation was carried out wi th Liu sizes 46, 48, and 50-Austrian without any resistance. PROCEDURE NOTE: The patient was placed on his left lateral position and was given sedation by Anesth esia Department. A Pentax video gastroscope under direct vision was passed down the oropharynx, past the GE junction into the stomach and subsequently to the descending duodenum. Although there is a h istory of passing black tarry stool, endoscopy, there is no pathology seen to explain the bleeding. The stomach was completely emptied of any material. There was no coughing or aspiration. The patien t did have esophageal ring, which does not appear to be obstructing. The scope was advanced into the stomach without difficulty. Retroflexion failed to show any pathology in fundus or cardia. The gas tric mucosa appears to be hypertrophied diffusely. Also, he had a few gastric polyps. They were not biopsied because he is on Plavix. The pyloric opening and incisura angularis, no pathology seen. Th e duodenal bulb and descending duodenum, no pathology seen. The stomach was decompressed and the sco pe was removed. Esophageal dilation carried out with Liu size 46, 48, and 50-Austrian. They had a ctually passed down with no resistance. RECOMMENDATIONS: 1. Clear liquid diet. 2. Advance diet as tolerated. 3. Follow up H&H.
--- NOTE | 2017-09-14 01:05 | CON ---
DATE OF CONSULTATION: 09/13/2017 REFERRING PHYSICIAN: Dru Yepez DO, sound hospitalist. REASON FOR CONSULTATION: Abdominal pain, diarrhea, hematochezia, dark stool. HISTORY OF PRESENT ILLNESS: Mr. Iggy Townsend is a very pleasant 82-year-old male, who is kn own to me from before. The patient has seen me about 3 years ago because of black tarry stool and al so abdominal pain. He had an EGD done, which revealed gastric polyp and gastritis. He had a colonos copy, which revealed sigmoid diverticular disease, sessile polyps x2 over the left colon, and also he morrhoids. The patient has a history of coronary artery disease, has had multiple stent placements d one. He has been seeing Dr. Curt Hernandez on a regular basis. The patient does take aspirin and Plavix. The patient developed abdominal pain with some nausea and diarrhea on Saturday night. The symptom s are mild to begin with. It got worse on morning and he had multiple loose watery stools. The stools are black and tarry. No new bright red blood in the stool. The patient also has had stevan e low-grade fever off and on. The patient has had history of intermittent black tarry stool over the years. Although he has history of black tarry stool, his blood count is not really very low at 12.7 . He states that the stools are actually very dark and tarry. It is not foul smelling. The patient has no history of antibiotic intake. There is no history of travel outside the country. He did hav e some chest pain on admission. The chest pain resolved at the present time. He actually feels thir sty and hungry and wants to eat and drink some fluids. The diarrhea seems to be getting better (01:56) and stools are small in size. He had 1 stool when I was in the room and stool actually look s more greenish than blackish. No relevant history. ALLERGIES: None. SOCIAL HISTORY: The patient does not smoke or drink alcohol. MEDICAL ILLNESSES: 1. Coronary artery disease, status post multiple stenting. 2. Type 2 diabetes mellitus. 3. Chronic acid reflux. 4. Hypertension. 5. Hyperlipidemia. 6. Chronic kidney disease. 7. Benign prostatic hypertrophy. 8. Colon polyp. 9. Diverticulosis. FAMILY HISTORY: Hypertension and diabetes. REVIEW OF SYSTEMS: DAT INSTRUCTOR: No dizziness, no syncope, no chronic headache, no seizure disorder. Respir atory: No history of chronic cough, hemoptysis, dyspnea. Cardiovascular: Chest pain off and on. N o dyspnea, orthopnea, or PND. Gastrointestinal: As in history of present illness. Genitourinary: History of dysuria at times and also has nocturia. No hematuria. Neuroendocrine: Unremarkable. Ps ychiatric: No depression or anxiety. MEDICATIONS: List reviewed. PHYSICAL EXAMINATION: GENERAL: The patient is obese, appears comfortable. VITAL SIGNS: His pulse is around 90, blood pressure is 136/83. HEENT: Conjunctivae clear. NECK: Supple. No adenitis or thyromegaly noted. CARDIOVASCULAR: First and second heart sounds normal. LUNGS: Clear to auscultation. ABDOMEN: Soft. Abdomen is nondistended. Abdomen is tender over the right colon area and also left colon area, but he is more tender over the right colon area. There is no rebound or guarding. No or ganomegaly or masses. Bowel sounds are normal. EXTREMITIES: No edema. LABORATORY DATA: CBC, WBC 14,000, hemoglobin 13, hematocrit 37, platelet count 107. BMP, normal lyt es, creatinine 1.33, bicarbonate is 19, glucose 163. Abdominal CAT scan done showed evidence of coli tis over the right colon extending to the transverse colon area. The left colon appeared very health y. CLINICAL IMPRESSION: An 82-year-old male with abdominal cramping, diarrhea, passing black tarry stool. The stool actually appears more greenish today than actually black. Although, he has h ad multiple stools, his blood count is actually normal at around 13. Today, it dropped to 12.7. The patient has had intermittent episodes of black tarry stool over the years and he had colonoscopy in 2015, which was basically negative except for 2 colon polyps and sigmoid diverticulosis. The patient also had EGD in the past. I am really not sure these so-called intermittent episodes of black tarry stool represent actual gastrointestinal bleeding or he has had more bile in his stool. At the prese nt time, the CAT scan does show colitis involved the right colon and there is a possibility it could be . He is on IV antibiotics. RECOMMENDATIONS: 1. Plan EGD today because of history of black tarry stool. 2. Continue antibiotics. 3. After EGD, I will make further recommendations. He has had a colonoscopy in 2015. I am not sure at the present time if he really needs a colonoscopy.
--- NOTE | 2017-09-14 01:34 | CON ---
DATE OF CONSULTATION: 09/13/2017 DATE OF ADMISSION: 09/12/2017 CARDIOLOGY CONSULT NOTE INDICATION FOR CONSULTATION: An 82-year-old patient with history of coronary artery disease with pos sible sepsis and history of anemia. We were asked to see him due to his long history of coronary art alie disease, multiple cardiac catheterizations, angioplasties and stent placements. He denied any ch est pain, but recently has not been feeling very well. He presented to the hospital after he had not been eating well for the last 2 days, feeling of weakness and actually had what appeared to be perha ps some chills and fever. He did have elevated temperature yesterday and then started having some ch ills and was brought to the emergency room. At this time, he is recovered. He is feeling better. Tony brower has had an EGD due to possible bleed or blood in the stools, upper endoscopy is normal. According to the patient, I did not see any written report yet, but there is no significant abnormalities per t he patient, but most likely his colon, he has had history of colitis in the past and has had a signif icant anemia. At this time hemoglobin is 12 range and does not appear to be severe anemia. He has n o known drug allergies. PAST MEDICAL HISTORY: Significant for coronary artery disease, multiple stent placement to the left circumflex and the right coronary artery. Last stress test was unremarkable for ischemia. He has boucher d a history of GI blood loss in the past, history of hypertension, gastroesophageal reflux disease. He has diabetes, chronic kidney disease, benign prostatic hypertrophy, and dyslipidemia. FAMILY HISTORY: Positive for diabetes and hypertension. MEDICATIONS: Please refer to the notes already dictated. Briefly, his medications at home include P lavix, aspirin 81 mg a day. He is on Folvite 1 mg daily, Prevacid, CoQ10, Levemir, FlexTouch, insuli n, simvastatin 20 mg a day, vitamins, Flomax 0.4 mg at bedtime. He is on Flonase nasal spray, vitami n D3, vitamins, arginine capsules, isosorbide mononitrate 60 mg, he takes 2 q.p.m. and manny styramine p.r.n. ALLERGIES: None. REVIEW OF SYSTEMS: A 12-point review of systems unremarkable, so was noted in the history of present illness. PHYSICAL EXAMINATION: GENERAL: Reveals a well-developed, well-nourished, elderly gentleman. He is in no acute distress at this time. He is alert and oriented. VITAL SIGNS: Blood pressure 114/89, heart rates in the 90s and shows a sinus rhythm. He is afebrile , respiratory rate 16, O2 saturation is 92%. HEENT: Shows head to be normocephalic and atraumatic. Carotid pulses are present and did not have a ny significant bruits. CHEST: Clear to auscultation. There were no rales, rhonchi, or wheezing. CARDIOVASCULAR: Exam reveals a regular rate and rhythm. There were no significant murmurs, heaves, thrills, bruits or rubs. ABDOMEN: Shows obesity with positive bowel sounds. No organomegaly or masses were noted. No tender ness is noted. EXTREMITIES: Showed no clubbing, cyanosis, or edema. Pedal pulses are present. NEUROLOGIC: The patient appears to be intact. LABORATORY DATA: Shows a hemoglobin 12.3 with hematocrit of 36.2 and WBC of 10.1, earlier WBC was 13 .8. His creatinine is 1.37 with a BUN of 16, potassium of 3.3. CPK MB was 0.6. Troponin I original ly was 0.027, increased up to 0.080. IMPRESSION: 1. Possible early sepsis. The patient has been placed on antibiotics. He has been undergone cultur es, do not believe any of these are back yet. There has been no indication that there is any growth in the urine or the blood thus far. 2. History of coronary artery disease. He has had multiple cardiac catheterizations and stent place ments. Last stress test was unremarkable. He is not having any chest pain more than usual. He has stable angina. He has small distal vessels now. Most likely he is not a candidate for further inter vention. 3. History of diabetes. This has been under relatively good control and blood sugar at this time is 140. 4. History of slight abnormality in the cardiac enzymes, which most likely are due to stress or teresa nd ischemia. 5. Hypercholesterolemia. The patient will continue his medications. 6. Mild chronic kidney disease. This is also stable at this time. We will continue to follow the p atient very carefully. He was somewhat confused yesterday and the family says he has lost a couple o f hours, though he does not remember what happened and certainly may have had some episode of transie nt bacteremia or ischemia at that time, but there is no indication of any positive blood cultures at this time. I would agree with the present medications and will resume his other home medications as soon as possible if they are not already instituted. We will be more than happy to continue to follo w the patient with you, but at this time his cardiac status is stable.
[2017-09-14] MEDS: metroNIDAZOLE 500 MG in Premix Bag 1 BAG IVPB SCH (02:35)
[2017-09-14] MEDS: Sodium Chloride 0.9% 1,000 ML IV SCH ×3 (02:36→11:37)
[2017-09-14] MEDS: Pantoprazole 80 MG, Admixture Fee 1 EACH in Sodium Chloride 0.9% 100 ML IVPB SCH ×2 (04:00→18:31)
[2017-09-14 07:18] LABS: Band 9 % (5-11); Eosinophils 4 % (0-10); Lymphocytes 10 % (21-51); MDiff Complete? YES; Macrocytosis SLIGHT = 6-15 cells (100X) (0-5/hpf); Mean Corpuscular HGB CONC 32.6 g/dL (32.0-36.0); Mean Corpuscular Hemoglobin 31.4 pg (27.0-31.0); Mean Corpuscular Volume 96.3 fl (80.0-94.0); Mean Platelet Volume 9.5 fL (7.4-10.4); Monocytes 4 % (0-10); Neutrophil 72 % (42-75); PLT Morphology Comment Appears Decreased; Platelet Count 118 thou/uL (130-400); Polychromasia SLIGHT = 2-3 cells (100X) (0-2/hpf); RBC Distribution Width 14.1 % (11.5-14.5); Reactive Lymphocytes 1 % (0-10); Red Blood Cell (RBC) Count 3.49 mill/uL (4.70-6.10); White Blood Cell (WBC) Count 7.9 thou/uL (4.8-10.8)
[2017-09-14 07:22] LABS: Anion Gap 14 mmol/L (10-20); BUN (Urea Nitrogen) 18 mg/dL (8.4-25.7); Calc. Creatinine Clearance 50 mL/min (70-130); Calcium 8.5 mg/dL (7.8-10.44); Carbon Dioxide 17 mmol/L (23-31); Chloride 111 mmol/L (98-107); Estimated GFR-MDRD 52; Glucose 123 mg/dL (83-110); Potassium 3.1 mmol/L (3.5-5.1); Sodium 139 mmol/L (136-145)
[2017-09-14] MEDS ORDERED: ZOSYN IVPB PRN (08:18)
[2017-09-14] MEDS: Potassium Chloride 20 MEQ TAB PO SCH ×2 (09:01→17:32)
[2017-09-14] MEDS: Folic Acid 1 MG TAB PO SCH (09:02)
[2017-09-14] MEDS: Clopidogrel Bisulfate 75 MG TAB PO SCH (09:02)
[2017-09-14] MEDS: Insulin Glargine 30 UNITS in Pre-Filled Syringe 1 EACH SC SCH (09:02)
[2017-09-14] MEDS: Bicitra 30 ML UDCUP PO SCH ×3 (11:45→18:31)
[2017-09-14] MEDS: Piperacillin/Tazobactam 3.375 GM in Sodium Chloride 0.9% 100 ML IVPB SCH ×2 (11:46→17:32)
--- NOTE | 2017-09-14 11:57 | PRG ---
DATE OF SERVICE: 09/14/2017 SUBJECTIVE: Mr. Townsend says he is feeling really good today. He is not having any abdominal pain. Tony brower did have a more normal-appearing bowel movement earlier today. He has been on a clear liquid diet and is wanting to advance his diet if possible. He has remained hemodynamically stable. Stool speci men was collected for C. difficile. OBJECTIVE: VITAL SIGNS: Temperature 98.1, pulse 84, blood pressure 142/73, 100% oxygen saturation on room air. GENERAL: No acute distress. HEART: Regular rate and rhythm. LUNGS: Clear to auscultation bilaterally. ABDOMEN: Soft, nontender to palpation. EXTREMITIES: No peripheral edema. LABORATORY STUDIES: WBC down to 7.9, hemoglobin 11.0, platelets 118. Sodium 139, potassium 3.1, BUN 18, creatinine 1.32. ASSESSMENT AND PLAN: 1. Acute colitis, right-sided, likely infectious, appears to be clinically improving. 2. Dark stool, with negative EGD yesterday. Mr. Townsend is feeling pretty well today. It appears his acute colitis is clinically resolving at [facility] on clear liquid diet. I think his diet can be advanced as tolerated today. If he is feeling well and tolerating his diet tomorrow morning, then I think he could be discharged from the hospital.
[2017-09-14] MEDS ORDERED: Piperacillin/Tazobactam 2.25 GM in Sodium Chloride 0.9% 100 ML IVPB SCH (14:00)
--- NOTE | 2017-09-14 14:09 | PDOC.CTH ---
<Lizz Patricia - Last Filed: 09/14/17 14:06> Cardiology Progress Note - Subjective The pt seen and examined. No overnight events. No cardiac complaints. 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 The pt is asymptomatic. - Objective Vital Signs Temp Pulse Resp BP Pulse Ox 09/14/17 08:10 98.1 F 84 20 142/73 H 100 Admit Weight 181 lb 14.4 oz Weight 181 lb 14.4 oz 09/13/17 09/14/17 09/15/17 06:59 06:59 06:59 Intake Total 1250 Balance 1250 - Physical Examination General/Neuro: alert & oriented x3 Neck: no JVD present Lungs: CTA Heart: RRR Abdomen: soft Extremities: other: (No edema) - Telemetry Telemetry Rhythm: SR - Labs Result Diagrams: 09/14/17 05:22 09/14/17 05:22 Troponin/CKMB CK-MB (CK-2) 0.6 ng/mL (0-6.6) 09/12/17 18:05 Troponin I 0.075 ng/mL (< 0.028) H 09/13/17 17:27 - Assessment/Plan 1. Acute clitis due to possible infection - EGD on 09/13/17 showed negative; tolerates regular diet; managed by GI 2. CAD with multiple stents in LAD and RCA - stable; On Statin, ASA and Plavix; Resume Coreg 3.125mg BID; may increase it later 3. HTN - stable with current meds 4. CKD stage 3 - stable 5. DM type 2 - managed by PCP; diet education given 6. Hyperlipidemia - on statin 7. Chronic Anemia - slightly worsen than yesterday; cont. to monitor 8. 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 to monitor on tele MAR reviewed Review of Systems - Review of Systems Constitutional: reports: no symptoms reported EENTM: reports: no symptoms reported Respiratory: reports: no symptoms reported Cardiac (ROS): reports: no symptoms reported ABD/GI: reports: no symptoms reported : reports: no symptoms reported Musculoskeletal: reports: no symptoms reported <Roger Hernandez - Last Filed: 09/14/17 23:01> Cardiology Progress Note - Objective Vital Signs Temp Pulse Resp BP Pulse Ox 09/14/17 20:00 98.1 F 81 20 09/14/17 17:30 98.1 F 81 20 137/61 99 Admit Weight 181 lb 14.4 oz Weight 181 lb 14.4 oz 09/13/17 09/14/17 09/15/17 06:59 06:59 06:59 Intake Total 1250 Balance 1250 - Labs Result Diagrams: 09/14/17 05:22 09/14/17 05:22 Troponin/CKMB CK-MB (CK-2) 0.6 ng/mL (0-6.6) 09/12/17 18:05 Troponin I 0.075 ng/mL (< 0.028) H 09/13/17 17:27 - Assessment/Plan Pt. was seen and eval. by me. I agree with the A/P by the PATIENT ADMITTING REPRESENTATIVE. We have discussed the pt. and the plan
--- NOTE | 2017-09-14 14:11 | PDOC.PN ---
- Subjective Encounter Start Date: 09/14/17 Encounter Start Time: 14:08 Patient seen and examined, states he feels well, enjoying lunch, said he's thankful to have had his diet advance, no other issues. All questions answered, no family at bedside. - Objective Vital Signs & Weight: Vital Signs (12 hours) Temp Pulse Resp BP Pulse Ox 09/14/17 08:10 98.1 F 84 20 142/73 H 100 Weight Admit Weight 181 lb 14.4 oz Weight 181 lb 14.4 oz I&O: 09/13/17 09/14/17 09/15/17 06:59 06:59 06:59 Intake Total 1250 Balance 1250 Result Diagrams: 09/14/17 05:22 09/14/17 05:22 Additional Labs: Accuchecks 09/13/17 21:05 POC Glucose 159 H Phys Exam - Physical Examination Constitutional: NAD HEENT: PERRLA, moist MMs, sclera anicteric Neck: no nodes, no JVD, supple, full ROM Respiratory: no wheezing, no rales, no rhonchi, clear to auscultation bilateral Cardiovascular: RRR, no significant murmur, no rub Gastrointestinal: soft, non-tender, no distention, positive bowel sounds Musculoskeletal: pulses present, edema present (trace) Neurological: non-focal, normal sensation, moves all 4 limbs Psychiatric: normal affect, A&O x 3 Skin: no rash, normal turgor Dx/Plan (1) GI bleed Code(s): K92.2 - GASTROINTESTINAL HEMORRHAGE, UNSPECIFIED Status: Acute (2) CKD (chronic kidney disease), stage III Code(s): N18.3 - CHRONIC KIDNEY DISEASE, STAGE 3 (MODERATE) Status: Chronic (3) Diabetes type 2, controlled Code(s): E11.9 - TYPE 2 DIABETES MELLITUS WITHOUT COMPLICATIONS Status: Chronic (4) Dyslipidemia Code(s): E78.5 - HYPERLIPIDEMIA, UNSPECIFIED Status: Chronic (5) GERD (gastroesophageal reflux disease) Code(s): K21.9 - GASTRO-ESOPHAGEAL REFLUX DISEASE WITHOUT ESOPHAGITIS Status: Chronic (6) Hypertension Code(s): I10 - ESSENTIAL (PRIMARY) HYPERTENSION Status: Chronic (7) Obesity (BMI 30.0-34.9) Code(s): E66.9 - OBESITY, UNSPECIFIED Status: Chronic - Plan * GNR in blood, DC flagyl, start zosyn * advance diet * GI following * no other changes for now * case and plan d/w patient at length, he understands and agrees with this plan
--- NOTE | 2017-09-14 17:21 | EKG ---
Test Reason : Blood Pressure : / mmHG Vent. Rate : 136 BPM Atrial Rate : 144 BPM P-R Int : 000 ms QRS Dur : 148 ms QT Int : 364 ms P-R-T Axes : 000 266 065 degrees QTc Int : 547 ms Wide QRS tachycardia Right bundle branch block Possible Lateral infarct , age undetermined Abnormal ECG Confirmed by VIRIDIANA MUNOZ ([id number]), editorial assistant DILIP NOEL ([id number]) on 09/14/2017 5:21:08 PM Referred By: Confirmed By:VIRIDIANA MUNOZ
[2017-09-14] MEDS: Carvedilol 3.125 MG TAB PO SCH (17:32)
[2017-09-14] MEDS: Simvastatin 20 MG TAB PO SCH (20:11)
[2017-09-14] MEDS: Tamsulosin HCl 0.4 MG CAP PO SCH (20:11)
[2017-09-15] MEDS: Sodium Chloride 0.9% 1,000 ML IV SCH (00:03)
[2017-09-15] MEDS: Piperacillin/Tazobactam 3.375 GM in Sodium Chloride 0.9% 100 ML IVPB SCH ×4 (00:04→19:07)
[2017-09-15] MEDS: Bicitra 30 ML UDCUP PO SCH ×5 (00:05→21:46)
[2017-09-15 06:01] LABS: Band 4 % (5-11); Eosinophils 10 % (0-10); Hemoglobin 10.5 g/dL (14.0-18.0); Hypochromia SLIGHT = 6-15 cells (100X) (0-5/hpf); Lymphocytes 7 % (21-51); MDiff Complete? YES; Mean Corpuscular HGB CONC 32.6 g/dL (32.0-36.0); Mean Corpuscular Hemoglobin 30.6 pg (27.0-31.0); Mean Corpuscular Volume 93.8 fl (80.0-94.0); Mean Platelet Volume 9.2 fL (7.4-10.4); Monocytes 6 % (0-10); Neutrophil 72 % (42-75); PLT Morphology Comment Appears Decreased; Platelet Count 115 thou/uL (130-400); RBC Distribution Width 14.1 % (11.5-14.5); Reactive Lymphocytes 1 % (0-10); Red Blood Cell (RBC) Count 3.42 mill/uL (4.70-6.10); White Blood Cell (WBC) Count 6.3 thou/uL (4.8-10.8)
[2017-09-15 08:14] LABS: Anion Gap 12 mmol/L (10-20); BUN (Urea Nitrogen) 14 mg/dL (8.4-25.7); Calc. Creatinine Clearance 46 mL/min (70-130); Carbon Dioxide 17 mmol/L (23-31); Chloride 115 mmol/L (98-107); Estimated GFR-MDRD 47; Potassium 3.2 mmol/L (3.5-5.1); Sodium 141 mmol/L (136-145)
[2017-09-15 08:15] LABS: Calcium 8.5 mg/dL (7.8-10.44); Glucose 180 mg/dL (83-110)
[2017-09-15] MEDS: Potassium Chloride 20 MEQ TAB PO SCH ×2 (08:59→16:46)
[2017-09-15] MEDS: Clopidogrel Bisulfate 75 MG TAB PO SCH (09:00)
[2017-09-15] MEDS: Carvedilol 3.125 MG TAB PO SCH ×2 (09:00→16:46)
[2017-09-15] MEDS: Folic Acid 1 MG TAB PO SCH (09:00)
[2017-09-15] MEDS: Insulin Glargine 30 UNITS in Pre-Filled Syringe 1 EACH SC SCH (09:00)
[2017-09-15] MEDS: Cholestyramine/Aspartame 4 gm Packet PO SCH ×2 (11:25→21:45)
--- NOTE | 2017-09-15 11:38 | PRG ---
DATE OF SERVICE: 09/15/2017. SUBJECTIVE: Mr. Townsend is feeling okay, but he says his diarrhea is persistent with advancement of hi s diet. He had several bowel movements late last night and a couple already this morning. No gross blood, but the stools are a bit dark. C. difficile came back negative. Blood culture is showing gra m negative rods. He is on antibiotics. He reports to me that the diarrhea has actually been going o n for several weeks or even months, though not with this severity. PHYSICAL EXAMINATION: VITAL SIGNS: Temperature 97.8, pulse 85, blood pressure 145/73, 97% oxygen saturation on room air. GENERAL: No acute distress. HEART: Regular rate and rhythm. LUNGS: Clear to auscultation bilaterally. ABDOMEN: Soft, nontender to palpation. EXTREMITIES: No peripheral edema. LABORATORY STUDIES: Sodium 141, potassium 3.2, BUN 14, creatinine 1.43, glucose 180, WBC 6.3, hemogl obin 10.5, platelets 115. C. difficile assay was negative. FOBT was positive. Blood cultures growi ng gram-negative rods. ASSESSMENT AND PLAN: Acute colitis. The patient reports no significant improvement in diarrhea with advancement of his diet. He is reporting to me now that the diarrhea and dark stools have actually been going on for at least a few weeks. I will send out further stool studies to include fecal lacto fanny, O&P screen and stool culture. If his diarrhea does not improve soon, his stool cultures are otherwise unrevealing, Dr. Dover may want to consider a diagnostic colonoscopy, though note, the patient did have a normal colonoscopy within the past few years. Dr. Dover returns tomorrow.
--- NOTE | 2017-09-15 14:16 | PDOC.CTH ---
<Lizz Patricia - Last Filed: 09/15/17 14:12> Cardiology Progress Note - Subjective The pt seen and examined. No overnight events. No cardiac complaints. Cont. 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 The pt is asymptomatic. - Objective Vital Signs Temp Pulse Resp BP Pulse Ox 09/15/17 12:58 128/63 09/15/17 11:21 98.5 F 82 18 97 09/15/17 07:05 97.8 F 85 20 145/73 H 97 Admit Weight 181 lb 14.4 oz Weight 181 lb 14.4 oz 09/14/17 09/15/17 09/16/17 06:59 06:59 06:59 Intake Total 1250 Balance 1250 - Physical Examination General/Neuro: alert & oriented x3 Neck: no JVD present Lungs: CTA Heart: RRR Abdomen: soft Extremities: other: (No edema) - Telemetry Telemetry Rhythm: SR - Labs Result Diagrams: 09/15/17 05:26 09/15/17 05:26 Troponin/CKMB CK-MB (CK-2) 0.6 ng/mL (0-6.6) 09/12/17 18:05 Troponin I 0.075 ng/mL (< 0.028) H 09/13/17 17:27 - Assessment/Plan 1. Acute clitis due to possible infection - Cont. having dark stool per Pt. EGD on 09/13/17 showed negative; Negative C diff; tolerates regular diet; managed by GI 2. CAD with multiple stents in LAD and RCA - stable; On Statin, ASA, Plavix and Coreg 3.125mg BID; 3. HTN - stable with current meds 4. CKD stage 3 - stable 5. DM type 2 - managed by PCP; diet education given 6. Hyperlipidemia - on statin 7. Chronic Anemia - slightly worsen than yesterday; cont. to monitor 8. 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 to monitor on tele MAR reviewed <Roger Hernandez - Last Filed: 09/15/17 21:52> Cardiology Progress Note - Objective Vital Signs Temp Pulse Resp BP Pulse Ox 09/15/17 19:45 97.2 F L 78 16 157/74 H 96 09/15/17 16:41 97.9 F 68 18 132/63 98 09/15/17 12:58 128/63 09/15/17 11:21 98.5 F 82 18 97 Admit Weight 181 lb 14.4 oz Weight 181 lb 14.4 oz 09/14/17 09/15/17 09/16/17 06:59 06:59 06:59 Intake Total 1250 Balance 1250 - Labs Result Diagrams: 09/15/17 05:26 09/15/17 05:26 Troponin/CKMB CK-MB (CK-2) 0.6 ng/mL (0-6.6) 09/12/17 18:05 Troponin I 0.075 ng/mL (< 0.028) H 09/13/17 17:27 - Assessment/Plan Pt. seen and eval. by me. I agree with the A/P by the COUTIERIER. We have discussed the plan.
[2017-09-15] MEDS: Tamsulosin HCl 0.4 MG CAP PO SCH (21:44)
[2017-09-15] MEDS: Simvastatin 20 MG TAB PO SCH (21:44)
[2017-09-16] MEDS: Piperacillin/Tazobactam 3.375 GM in Sodium Chloride 0.9% 100 ML IVPB SCH ×3 (00:22→12:49)
[2017-09-16 05:40] LABS: #Eosinphils 0.5 thou/uL (0.0-0.7); #Lymphocytes 0.8 thou/uL (1.20-3.40); #Monocytes 0.7 thou/uL (0.11-0.59); #Neutrophils 3.6 thou/uL (1.40-6.50); %Basophils 0.3 % (0.0-1.0); %Eosinophils 8.6 % (0.0-10.0); %Lymphocytes 15.1 % (21.0-51.0); %Monocytes 11.9 % (0.0-10.0); %Neutrophils 64.1 % (42.0-75.0); Hemoglobin 9.9 g/dL (14.0-18.0); Mean Corpuscular HGB CONC 33.8 g/dL (32.0-36.0); Mean Corpuscular Hemoglobin 32.1 pg (27.0-31.0); Mean Corpuscular Volume 94.7 fl (80.0-94.0); Mean Platelet Volume 9.5 fL (7.4-10.4); Platelet Count 121 thou/uL (130-400); RBC Distribution Width 14.1 % (11.5-14.5); Red Blood Cell (RBC) Count 3.09 mill/uL (4.70-6.10); White Blood Cell (WBC) Count 5.6 thou/uL (4.8-10.8)
[2017-09-16 05:56] LABS: Anion Gap 10 mmol/L (10-20); BUN (Urea Nitrogen) 11 mg/dL (8.4-25.7); Calc. Creatinine Clearance 63 mL/min (70-130); Calcium 8.2 mg/dL (7.8-10.44); Carbon Dioxide 21 mmol/L (23-31); Chloride 116 mmol/L (98-107); Estimated GFR-MDRD 68; Glucose 105 mg/dL (83-110); Potassium 3.6 mmol/L (3.5-5.1); Sodium 143 mmol/L (136-145)
[2017-09-16] MEDS: Cholestyramine/Aspartame 4 gm Packet PO SCH ×2 (08:10→21:25)
[2017-09-16] MEDS: HumaLOG 300 UNITS/3 ML VIAL SC PRN ×3 (08:53→17:46)
[2017-09-16] MEDS: Insulin Glargine 30 UNITS in Pre-Filled Syringe 1 EACH SC SCH (08:55)
[2017-09-16] MEDS: Potassium Chloride 20 MEQ TAB PO SCH ×2 (08:57→17:47)
[2017-09-16] MEDS: Clopidogrel Bisulfate 75 MG TAB PO SCH (08:58)
[2017-09-16] MEDS: Folic Acid 1 MG TAB PO SCH (08:58)
[2017-09-16] MEDS: Carvedilol 3.125 MG TAB PO SCH ×2 (08:58→17:47)
[2017-09-16] MEDS: Bicitra 30 ML UDCUP PO SCH ×4 (08:59→23:37)
--- NOTE | 2017-09-16 10:28 | PDOC.PN ---
- Subjective Encounter Start Date: 09/16/17 Encounter Start Time: 11:20 Subjective: Patient not feeling any better. Still with diarrhea with black color. -: Fatigued. Ambulating better with less unsteadiness. - Objective MAR Reviewed: Yes Vital Signs & Weight: Vital Signs (12 hours) Temp Pulse Resp BP BP Pulse Ox 09/16/17 07:40 98.2 F 77 24 H 183/84 H 94 L 09/16/17 04:00 97.7 F 58 L 16 173/79 H 98 Weight Admit Weight 181 lb 14.4 oz Weight 181 lb 14.4 oz I&O: 09/15/17 09/16/17 09/17/17 06:59 06:59 06:59 Intake Total 700 Balance 700 Result Diagrams: 09/16/17 04:49 09/16/17 04:49 Additional Labs: Accuchecks 09/16/17 09/15/17 09/15/17 06:20 21:22 16:29 POC Glucose 116 H 141 H 168 H 09/15/17 11:24 POC Glucose 143 H Phys Exam - Physical Examination Constitutional: NAD HEENT: moist MMs Respiratory: no wheezing, no rales, no rhonchi Cardiovascular: RRR, no significant murmur Gastrointestinal: soft, positive bowel sounds mild TTP diffusely Neurological: non-focal, moves all 4 limbs Psychiatric: normal affect, A&O x 3 Dx/Plan (1) Infectious colitis Code(s): A09 - INFECTIOUS GASTROENTERITIS AND COLITIS, UNSPECIFIED Status: Acute Comment: Continued diarrhea, lactoferrin and campy antigen negative, but 1/2 blood cultures growing back campylobacter. Continue antibiotics. GI following. (2) GI bleed Code(s): K92.2 - GASTROINTESTINAL HEMORRHAGE, UNSPECIFIED Status: Acute Comment: heme positive stool, but H/H trending down now, suspect minimal leak due to colitis and blood thinners (3) BPH (benign prostatic hyperplasia) Code(s): N40.0 - BENIGN PROSTATIC HYPERPLASIA WITHOUT LOWER URINRY TRACT SYMP Status: Chronic (4) CAD (coronary artery disease) Code(s): I25.10 - ATHSCL HEART DISEASE OF [place] CORONARY ARTERY W/O ANG PCTRS Status: Chronic (5) Diabetes type 2, controlled Code(s): E11.9 - TYPE 2 DIABETES MELLITUS WITHOUT COMPLICATIONS Status: Chronic (6) Dyslipidemia Code(s): E78.5 - HYPERLIPIDEMIA, UNSPECIFIED Status: Chronic (7) GERD (gastroesophageal reflux disease) Code(s): K21.9 - GASTRO-ESOPHAGEAL REFLUX DISEASE WITHOUT ESOPHAGITIS Status: Chronic (8) Hypertension Code(s): I10 - ESSENTIAL (PRIMARY) HYPERTENSION Status: Chronic (9) Obesity (BMI 30.0-34.9) Code(s): E66.9 - OBESITY, UNSPECIFIED Status: Chronic (10) Bacteremia Code(s): R78.81 - BACTEREMIA Status: Acute Comment: 1/2 Campylobacter in blood cultures. Tends to be resistent to Zosyn, so will stop and start Azithromycin. Will consult ID. - Plan cont current plan of care, continue antibiotics, PT/OT, DVT proph w/SCDs * . - Discharge Day Encounter end time: 11:20
--- NOTE | 2017-09-16 11:04 | PDOC.CTH ---
<Lizz Patricia - Last Filed: 09/16/17 11:02> Cardiology Progress Note - Subjective The pt seen and examined. No overnight events. No cardiac complaints. Cont. 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 The pt is asymptomatic. - Objective Vital Signs Temp Pulse Resp BP BP Pulse Ox 09/16/17 07:40 98.2 F 77 24 H 183/84 H 94 L 09/16/17 04:00 97.7 F 58 L 16 173/79 H 98 Admit Weight 181 lb 14.4 oz Weight 181 lb 14.4 oz 09/15/17 09/16/17 09/17/17 06:59 06:59 06:59 Intake Total 700 Balance 700 - Physical Examination General/Neuro: alert & oriented x3 Neck: no JVD present Lungs: CTA Heart: RRR Abdomen: soft Extremities: other: (No edema) - Telemetry Telemetry Rhythm: SR 70s - Labs Result Diagrams: 09/16/17 04:49 09/16/17 04:49 Troponin/CKMB CK-MB (CK-2) 0.6 ng/mL (0-6.6) 09/12/17 18:05 Troponin I 0.075 ng/mL (< 0.028) H 09/13/17 17:27 - Assessment/Plan 1. Acute colitis due to possible infection - Cont. having dark stool per Pt. EGD on 09/13/17 showed negative; Negative C diff; tolerates regular diet; managed by GI 2. CAD with multiple stents in LAD and RCA - stable; On Statin, ASA, Plavix and Coreg 3.125mg BID; 3. HTN - Increase Imdur from 60mg to 120mg daily; Cont. to monitor 4. CKD stage 3 - stable 5. DM type 2 - managed by PCP; diet education given 6. Hyperlipidemia - on statin 7. Chronic Anemia - slightly worsen than yesterday; cont. to monitor 8. 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 to monitor on tele MAR reviewed Review of Systems - Review of Systems Constitutional: reports: no symptoms reported EENTM: reports: no symptoms reported Respiratory: reports: no symptoms reported Cardiac (ROS): reports: no symptoms reported ABD/GI: reports: no symptoms reported : reports: no symptoms reported <Roger Hernandez - Last Filed: 09/16/17 22:38> Cardiology Progress Note - Objective Vital Signs Temp Pulse Resp BP BP Pulse Ox 09/16/17 16:00 97.4 F L 70 20 165/72 H 94 L 09/16/17 12:00 97.6 F 71 18 178/81 H 95 Admit Weight 181 lb 14.4 oz Weight 181 lb 14.4 oz 09/15/17 09/16/17 09/17/17 06:59 06:59 06:59 Intake Total 700 639 Balance 700 639 - Labs Result Diagrams: 09/16/17 04:49 09/16/17 04:49 Troponin/CKMB CK-MB (CK-2) 0.6 ng/mL (0-6.6) 09/12/17 18:05 Troponin I 0.075 ng/mL (< 0.028) H 09/13/17 17:27 - Assessment/Plan Pt. was seen and eval. by me. I agree with the A/P by QUALITATIVE FIELD PROJECT MANAGER. His cardiac status has remained stable. Chest clear,RRR.
[2017-09-16] MEDS ORDERED: Azithromycin 500 MG in Sodium Chloride 0.9% 250 ML 250 ML IVPB SCH (17:00)
[2017-09-16] MEDS: Tamsulosin HCl 0.4 MG CAP PO SCH (21:25)
[2017-09-16] MEDS: Simvastatin 20 MG TAB PO SCH (21:25)
[2017-09-17] MEDS: Cholestyramine/Aspartame 4 gm Packet PO SCH ×2 (07:50→21:38)
--- NOTE | 2017-09-17 09:29 | PDOC.PN ---
- Subjective Encounter Start Date: 09/17/17 Encounter Start Time: 10:50 Subjective: Patient feeling much better. Stools still soft but no more diarrhea. -: Energetic today. Ready to go home. No fever. No black tarry stool -: today. - Objective MAR Reviewed: Yes Vital Signs & Weight: Vital Signs (12 hours) Temp Pulse Resp BP Pulse Ox 09/17/17 04:00 98.4 F 76 18 170/79 H 93 L Weight Admit Weight 181 lb 14.4 oz Weight 186 lb 9.6 oz I&O: 09/16/17 09/17/17 09/18/17 06:59 06:59 06:59 Intake Total 700 1039 Balance 700 1039 Result Diagrams: 09/16/17 04:49 09/16/17 04:49 Additional Labs: Accuchecks 09/17/17 09/16/17 09/16/17 06:16 20:45 16:41 POC Glucose 112 H 155 H 174 H 09/16/17 11:27 POC Glucose 150 H Phys Exam - Physical Examination Constitutional: NAD HEENT: moist MMs Respiratory: no wheezing, no rales, no rhonchi, clear to auscultation bilateral Cardiovascular: RRR, no significant murmur Gastrointestinal: soft, non-tender, positive bowel sounds Musculoskeletal: no edema Neurological: non-focal, moves all 4 limbs Psychiatric: normal affect, A&O x 3 Dx/Plan (1) Infectious colitis Code(s): A09 - INFECTIOUS GASTROENTERITIS AND COLITIS, UNSPECIFIED Status: Acute Comment: Continued diarrhea, lactoferrin and campy antigen negative, but 1/2 blood cultures growing back campylobacter. Continue antibiotics. GI following. No plan for colonoscopy at this point. Blood loss likely from colitis. (2) GI bleed Code(s): K92.2 - GASTROINTESTINAL HEMORRHAGE, UNSPECIFIED Status: Acute Comment: heme positive stool, but H/H trending down now, suspect leak due to colitis and blood thinners (3) BPH (benign prostatic hyperplasia) Code(s): N40.0 - BENIGN PROSTATIC HYPERPLASIA WITHOUT LOWER URINRY TRACT SYMP Status: Chronic (4) CAD (coronary artery disease) Code(s): I25.10 - ATHSCL HEART DISEASE OF [place] CORONARY ARTERY W/O ANG PCTRS Status: Chronic (5) Diabetes type 2, controlled Code(s): E11.9 - TYPE 2 DIABETES MELLITUS WITHOUT COMPLICATIONS Status: Chronic (6) Dyslipidemia Code(s): E78.5 - HYPERLIPIDEMIA, UNSPECIFIED Status: Chronic (7) GERD (gastroesophageal reflux disease) Code(s): K21.9 - GASTRO-ESOPHAGEAL REFLUX DISEASE WITHOUT ESOPHAGITIS Status: Chronic (8) Hypertension Code(s): I10 - ESSENTIAL (PRIMARY) HYPERTENSION Status: Chronic (9) Obesity (BMI 30.0-34.9) Code(s): E66.9 - OBESITY, UNSPECIFIED Status: Chronic (10) Bacteremia Code(s): R78.81 - BACTEREMIA Status: Acute Comment: 04/30 Campylobacter in blood cultures. Tends to be resistent to Zosyn, so will stop and start Azithromycin. Dr. Rosenthal consulted. Will recheck blood cultures to make sure cleared. - Plan cont current plan of care, continue antibiotics, DVT proph w/SCDs Spoke with Dr. Rosenthal and he stated that there can be some resistance -: to Cipro and Azithromycin. Will choose an oral antibiotic and then we can -: discharge later the evening. Will check H/H again before discharge. * . - Discharge Day Encounter end time: 11:00
[2017-09-17] MEDS: Potassium Chloride 20 MEQ TAB PO SCH ×2 (09:46→16:26)
[2017-09-17] MEDS: Bicitra 30 ML UDCUP PO SCH ×4 (09:46→21:37)
[2017-09-17] MEDS: Carvedilol 3.125 MG TAB PO SCH (09:48)
[2017-09-17] MEDS: Clopidogrel Bisulfate 75 MG TAB PO SCH (09:48)
[2017-09-17] MEDS: Folic Acid 1 MG TAB PO SCH (09:48)
[2017-09-17] MEDS: Insulin Glargine 30 UNITS in Pre-Filled Syringe 1 EACH SC SCH (09:51)
[2017-09-17] MEDS ORDERED: Carvedilol 3.125 MG TAB PO SCH (10:32)
[2017-09-17] MEDS ORDERED: Carvedilol 6.25 MG TAB PO SCH (10:45)
--- NOTE | 2017-09-17 15:34 | CON ---
DATE OF CONSULTATION: 09/17/2017 REASON FOR CONSULTATION: Diarrhea with bacteremia. HISTORY OF PRESENT ILLNESS: An 82-year-old with a history of hypertension, type 2 diabetes, coronary artery disease, who developed abdominal cramps and diarrhea with bright red blood per rectum. Initial evaluation demonstrated BP 130/80 and temperature 101, O2 sat 98%. Lungs show clear breath sounds. Abdomen soft, not tender in the right side, but slightly tender in the left flank area and left lower quadrant. White cell count is elevated at 14,000, hemoglobin 13 and creatinine 1.33, bicarbonate 19, glucose 163. Initial impression was possible colitis which was demonstrated in the CT of abdomen and pelvis, mostly localized to the transverse and right colon. Gastroenterology consultation was obtained. The patient had an EGD done, which showed a hypertrophic gastropathy. The patient had numerous stool assays and basically those were negative including C. diff and Campylobacter studies; however Campylobacter was retrieved from one set of blood cultures was not further speciated. Rapid parasite screen was negative for Giardia and cryptosporidium. The patient was given Zosyn and then now azithromycin and is feeling better. Feels like he is back to baseline. No headaches, visual symptoms, sore throat, odynophagia, dysphagia, no cough or sputum production or chest pain. No more abdominal pain, diarrhea has settled and no more bleeding, no joint symptoms. PAST MEDICAL HISTORY: Type 2 diabetes, coronary artery disease, dyslipidemia, stage 3 CKD, BPH, GERD, and prior gastrointestinal bleeding. FAMILY HISTORY: Hypertension and diabetes. CURRENT MEDICATIONS: Azithromycin, Coreg, cholestyramine, Plavix, dextrose, glucagon, insulin, Isordil, potassium, tamsulosin, and zolpidem. ALLERGIES: None. 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 Former smoker, quit 30 years ago. No alcoholic beverage use. Lives by himself. PHYSICAL EXAMINATION: VITAL SIGNS: Essentially normal temperature, BP 140/60, respiratory rate 18, O2 sat 93% room air. Appears in no distress. SKIN: Normal. The patient has a peripheral IV access. No Hazel catheter. No lymphadenopathy. HEENT: Noncontributory. NECK: Supple. LUNGS: Clear to auscultation and percussion. HEART: S1, S2, regular rate. No S3 or S4. ABDOMEN: Soft, not distended or tender. No ascites. No bladder distention. EXTREMITIES: No joint inflammatory activity. The patient has a previous TKR right knee. Pulses 1+ in dorsalis pedis. Cap refill normal. Plantar responses are flexure. NEUROLOGIC: Cognitive function appears to be intact. LABORATORY DATA: White cell count 5.6, hemoglobin 9.9, MCV 94, platelets 121. Sodium 143, creatinine 1.05, which is improved from admission. Urinalysis was essentially normal except for proteinuria and the microbiology reports noted above. ASSESSMENT: Coronary artery disease with diabetes type 2 and Campylobacter species gastroenteritis with bacteremia. DISCUSSION: Campylobacter jejuni and fetus are the most common species of Campylobacter causing human illness. Usually, Campylobacter jejuni is associated with gastroenteritis, but not bacteremia and Campylobacter fetus associated with bacteremia without gastroenteritis. With the automated current microbiology methods, there has been an increase in the retrieval of Campylobacter from blood cultures. There has been a noticeable increase in the resistance off the Campylobacter to various antimicrobials including quinolones and macrolides. In general, Campylobacter bacteremia should not be treated with cephalosporins since there has been a noticeable worse outcome with those. The patient has markedly improved and would at this point transition to oral amoxicillin and quinolone for discharge planning for 5 days. The chronic intake of proton pump inhibitors may increase his susceptibility to food-borne pathogens and I would advise attempted discontinuing that if possible. The patient has artificial right prosthetic knee and those are known to be associated with subsequent development of colonization by Campylobacter when there is a bacteremia, so I have advised patient to contact us if he notices worsening pain in the right knee and inflammatory changes. [place]
[2017-09-17 15:48] LABS: Hemoglobin 10.7 g/dL (14.0-18.0)
[2017-09-17] MEDS: Carvedilol 6.25 MG TAB PO SCH (16:26)
--- NOTE | 2017-09-17 17:54 | PDOC.CTH ---
Cardiology Progress Note - Subjective The pt seen and examined. No overnight events. No cardiac complaints. 1-2+ pitting BLE edema. He has taken large amount of fluid due to hx of diarrhea. Instructed to cut down fluid intake because he is no longer having diarrhea. He voiced understanding. - Objective Vital Signs Temp Pulse Resp BP BP BP Pulse Ox 09/17/17 16:26 136/61 09/17/17 16:00 97.5 F L 67 17 136/61 92 L 09/17/17 12:43 141/63 H 09/17/17 12:00 97.0 F L 74 18 141/63 H 93 L 09/17/17 08:00 98.2 F 70 18 170/87 H 93 L Admit Weight 181 lb 14.4 oz Weight 186 lb 9.6 oz 09/16/17 09/17/17 09/18/17 06:59 06:59 06:59 Intake Total 700 1039 960 Balance 700 1039 960 - Physical Examination General/Neuro: alert & oriented x3 Neck: no JVD present Lungs: CTA Heart: RRR Abdomen: soft Extremities: other: (1-2+ pitting BLE edema) - Telemetry Telemetry Rhythm: SR - Labs Result Diagrams: 09/17/17 15:17 09/16/17 04:49 Troponin/CKMB CK-MB (CK-2) 0.6 ng/mL (0-6.6) 09/12/17 18:05 Troponin I 0.075 ng/mL (< 0.028) H 09/13/17 17:27 - Assessment/Plan 1. Acute colitis due to Campylobacter - On Amoxicillin and Cipro by Dr Rosenthal. 2. CAD with multiple stents in LAD and RCA - stable; On Statin, ASA, Plavix and Coreg 6.25 mg BID; 3. HTN - Increase Imdur from 60mg to 120mg daily; Cont. to monitor 4. CKD stage 3 - stable 5. DM type 2 - managed by PCP; diet education given 6. Hyperlipidemia - on statin 7. Chronic Anemia - stable; cont. to monitor 8. 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 to monitor on tele MAR reviewed * 1-2+ pitting BLE edema. He has taken large amount of fluid due to hx of diarrhea. Instructed to cut down fluid intake because he is no longer having diarrhea. He voiced understanding. * From Cardiac standpoint, the pt is stable to d/c. The pt will f/u with Dr Hernandez' office within 1-2 months. Review of Systems - Review of Systems Constitutional: reports: no symptoms reported EENTM: reports: no symptoms reported Respiratory: reports: no symptoms reported Cardiac (ROS): reports: no symptoms reported ABD/GI: reports: no symptoms reported : reports: no symptoms reported Musculoskeletal: reports: no symptoms reported
--- NOTE | 2017-09-17 21:23 | PRG ---
DATE OF SERVICE: 09/17/2017 SUBJECTIVE: This is an 82-year-old male hospitalized with abdominal pain, diarrhea, and also history of black tarry stool. EGD done last week just showed pathology. The patient is on IV Zosyn since admission. His blood culture grew Campylobacter ileus. He has been seen by Dr. Silas Rosenthal, ID independent beauty consultant. The patient is actually feeling better today. His energy level is better. He is eating well. No nausea, no vomiting. No abdominal pain. He has had 2 stools today. The stools are getting firm. The patient asked to go home. PHYSICAL EXAMINATION: GENERAL: He is afebrile, appears comfortable. VITAL SIGNS: Stable. CARDIOVASCULAR SYSTEM AND LUNGS: Within normal limits. ABDOMEN: Soft to palpate. No organomegaly. No tenderness. No masses. CLINICAL IMPRESSION: 1. Diarrhea, seems resolving. His stool cultures negative. 2. Positive Campylobacter ileus and is seen by Dr. Rosenthal and his recommendations will be followed up. He will come back to me in office in 2 weeks. [facility]Will
[2017-09-17] MEDS: Cipro 250 MG TAB PO SCH (21:37)
[2017-09-17] MEDS: Simvastatin 20 MG TAB PO SCH (21:37)
[2017-09-17] MEDS: Tamsulosin HCl 0.4 MG CAP PO SCH (21:37)
[2017-09-18 04:56] LABS: Anion Gap 10 mmol/L (10-20); BUN (Urea Nitrogen) 9 mg/dL (8.4-25.7); Calc. Creatinine Clearance 65 mL/min (70-130); Calcium 8.3 mg/dL (7.8-10.44); Carbon Dioxide 25 mmol/L (23-31); Chloride 110 mmol/L (98-107); Estimated GFR-MDRD 68; Glucose 91 mg/dL (83-110); Sodium 141 mmol/L (136-145)
[2017-09-18 04:59] LABS: #Eosinphils 0.5 thou/uL (0.0-0.7); #Lymphocytes 1.1 thou/uL (1.20-3.40); #Monocytes 0.8 thou/uL (0.11-0.59); #Neutrophils 5.8 thou/uL (1.40-6.50); %Basophils 0.2 % (0.0-1.0); %Eosinophils 5.5 % (0.0-10.0); %Lymphocytes 13.6 % (21.0-51.0); %Monocytes 10.1 % (0.0-10.0); %Neutrophils 70.5 % (42.0-75.0); Hemoglobin 9.5 g/dL (14.0-18.0); Mean Corpuscular HGB CONC 33.9 g/dL (32.0-36.0); Mean Corpuscular Hemoglobin 32.1 pg (27.0-31.0); Mean Corpuscular Volume 94.8 fl (80.0-94.0); Mean Platelet Volume 9.3 fL (7.4-10.4); Platelet Count 119 thou/uL (130-400); RBC Distribution Width 14.3 % (11.5-14.5); Red Blood Cell (RBC) Count 2.96 mill/uL (4.70-6.10); White Blood Cell (WBC) Count 8.2 thou/uL (4.8-10.8)
[2017-09-18] MEDS: Cipro 250 MG TAB PO SCH (05:29)
[2017-09-18 07:09] VITALS: BP 145/74; TEMP 98.1
[2017-09-18] MEDS: Cholestyramine/Aspartame 4 gm Packet PO SCH (07:36)
[2017-09-18] MEDS: Carvedilol 6.25 MG TAB PO SCH (09:03)
[2017-09-18] MEDS: Potassium Chloride 20 MEQ TAB PO SCH (09:03)
[2017-09-18] MEDS: Clopidogrel Bisulfate 75 MG TAB PO SCH (09:03)
[2017-09-18] MEDS: Bicitra 30 ML UDCUP PO SCH (09:04)
[2017-09-18] MEDS: Insulin Glargine 30 UNITS in Pre-Filled Syringe 1 EACH SC SCH (09:04)
[2017-09-18] MEDS: Folic Acid 1 MG TAB PO SCH (09:04)
--- NOTE | 2017-09-18 10:25 | DIS ---
DATE OF ADMISSION: 09/12/2017 DATE OF DISCHARGE: 09/18/2017 DISCHARGE DIAGNOSES: 1. Infectious colitis secondary to Campylobacter. 2. Campylobacter bacteremia. 3. Chronic macrocytic anemia. 4. Distal esophageal ring, status post dilation. 5. Gastroesophageal reflux disease. 6. Diabetes mellitus, type 2, insulin-requiring, stable. 7. Coronary artery disease, chronic and stable. 8. Hypokalemia, resolved. CONSULTATIONS: Dr. Silas Rosenthal with Infectious Disease service. Dr. Dover with GI service. Will Hernandez with Cardiology Service. PERTINENT LABORATORY AND X-RAY FINDINGS: Potassium ranged between 3.1-4.7, hemoglobin A1c 6.3. Lact ic acid level 1.5, AST 42, ALT 20, alkaline phosphatase 94. CBC showed a hemoglobin ranging between 9.5-12.7, platelet count ranging between 103-121, blood culture 1 of 2 positive for presumptive Campy lobacter species, 09/12/2017. Urine culture dated 09/12/2017 showed less than 10,000 colonies of mix ed skin katty. Influenza A and B antigen negative, 09/12/2017. Stool Hemoccult, 09/12/2017, positiv e x1. C. difficile antigen toxin negative, 09/14/2017. Campylobacter antigen assay, 09/15/2017, neg ative. Shigella toxin 1 and 2 negative. Stool lactoferrin, 09/15/2017, negative. Blood cultures x2 dated, 09/17/2017, showed no growth to date. Portable chest x-ray dated 09/12/2017 showed no acute cardiopulmonary process. CT of the abdomen and pelvis dated 09/12/2017 showed colitis of the right a nd transverse colon, diverticulosis without evidence of diverticulitis. EGD dated 09/13/2017 showed esophageal ring, nonobstructive. Marked hypertrophy with polypoid-appearing gastric mucosa. Normal duodenum. HOSPITAL COURSE: Patient was initially admitted after complaints of abdominal pain and questionable GI bleed. The patient had noticed black tarry stools, on chronic aspirin and Plavix therapy due to s evere coronary artery disease, status post multiple cardiac stents. The patient underwent extensive evaluation including stool evaluation showing a positive Hemoccult test x1. The patient was evaluate d by the GI service, undergoing stool studies, after initial CT of the abdomen concerning for possibl e colitis of the right and transverse colon. The patient was placed on broad-spectrum antibiotic the rapy; however, stool studies were unremarkable as stated previously. The patient did have 1 out of 2 blood cultures positive for Campylobacter species, at which point the patient was placed on amoxicil annie and Zithromax. The patient was evaluated by the Infectious Disease service with recommendations for amoxicillin and ciprofloxacin. The patient underwent EGD evaluation due to history of anemia and concern for upper GI bleeding source. The patient was noted with distal esophageal ring, status pos t dilation; however, no specific evidence of acute upper GI bleed noted. Serial H and H monitoring s howed overall stable values and patient did not require any packed red blood cell transfusions. The patient was also evaluated by the Cardiology Service with recommendations to continue a low dose aspi rin at 81 mg in addition to Plavix 75 mg daily. No other specific intervention was recommended by [facility]. The patient was continued on Protonix therapy and overall remained clinically stable through the hospital course. The patient transitioned to amoxicillin and ciprofloxacin with r ecommendations to complete a 5-day course of antibiotic therapy on discharge. I have examined the lencho pardo and discussed pertinent studies and followup instructions at the time of discharge and this pat ient verbalizes understanding and agreement. The patient overall clinically stable and ready for dis charge on 09/18/2017. DISCHARGE MEDICATIONS: 1. Amoxicillin 500 mg p.o. t.i.d. x5 days. 2. Aspirin 81 mg 1 tab p.o. daily. 3. Carvedilol 6.25 mg p.o. b.i.d. 4. Vitamin D3 1000 units p.o. daily. 5. Cholestyramine 1 teaspoon p.o. b.i.d. p.r.n. 6. Ciprofloxacin 500 mg p.o. b.i.d. x5 days. 7. Plavix 75 mg one tab p.o. daily. 8. Vitamin B12 1200 mcg p.o. daily. 9. Flonase 1 spray in each naris daily. 10. Folic acid 1 mg p.o. daily. 11. Levemir 30 units subcutaneously daily. 12. Isosorbide mononitrate 120 mg p.o. daily. 13. Protonix 40 mg 1 tab p.o. daily. 14. vitamin 1 tab p.o. daily. 15. Simvastatin 20 mg p.o. at bedtime. 16. Flomax 0.4 mg p.o. at bedtime. 17. Coenzyme Q10 200 mg p.o. daily. 18. Arginine 500 mg p.o. b.i.d. FOLLOWUP: Patient to follow up with Dr. Quiroz within 7 days of discharge. The patient will follow up with Dr. Dover with GI service 2-3 weeks after discharge. The patient will follow up with Dr Mariana Hernandez 2 months after discharge. CONDITION ON DISCHARGE: Stable. ACTIVITY: Ad alejandro. DIET: Heart healthy and ADA. CODE STATUS: FULL. DISPOSITION: Home, 09/18/2017.
--- NOTE | 2017-09-18 10:35 | PDOC.CTH ---
Cardiology Progress Note - Objective Vital Signs Temp Pulse Resp BP BP BP Pulse Ox 09/18/17 09:03 145/74 H 09/18/17 08:00 98.1 F 71 18 09/18/17 07:08 98.1 F 71 18 145/74 H 92 L 09/18/17 04:00 99.4 F 66 18 160/72 H 92 L Admit Weight 181 lb 14.4 oz Weight 182 lb 09/17/17 09/18/17 09/19/17 06:59 06:59 06:59 Intake Total 1039 1260 240 Output Total 800 Balance 1039 460 240 - Labs Result Diagrams: 09/18/17 03:52 09/18/17 03:52 Troponin/CKMB CK-MB (CK-2) 0.6 ng/mL (0-6.6) 09/12/17 18:05 Troponin I 0.075 ng/mL (< 0.028) H 09/13/17 17:27 - Assessment/Plan 1. Acute colitis due to Campylobacter - On Amoxicillin and Cipro by Dr Rosenthal. 2. CAD with multiple stents in LAD and RCA - stable; On Statin, ASA, Plavix and Coreg 6.25 mg BID; 3. HTN - Increase Imdur from 60mg to 120mg daily; Cont. to monitor 4. CKD stage 3 - stable 5. DM type 2 - managed by PCP; diet education given 6. Hyperlipidemia - on statin 7. Chronic Anemia - stable; cont. to monitor 8. 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 to monitor on tele MAR reviewed * 1-2+ pitting BLE edema. He has taken large amount of fluid due to hx of diarrhea. Instructed to cut down fluid intake because he is no longer having diarrhea. He voiced understanding. * From Cardiac standpoint, the pt is stable to d/c. The pt will f/u with Dr Hernandez' office within 1-2 months. cont current plan of care, continue antibiotics, DVT proph w/SCDs Spoke with Dr. Rosenthal and he stated that there can be some resistance -: to Cipro and Azithromycin. Will choose an oral antibiotic and then we can -: discharge later the evening. Will check H/H again before discharge.
== END 2017-09-18 11:50 | disposition home or self-care (01) | DRG 872 ==
LOC: ERS 12:40 → ERHOLD 16:35 → 2NO 20:59
PROVIDERS: ADMIT Internal Medicine; ATTEND Internal Medicine
PROC: 0D758ZZ Dilation of Esophagus, Via Natural or Artificial Opening Endoscopic (ICD-10-PCS; principal; 2017-09-13)
DX: A41.9 Sepsis, unspecified organism (principal); A04.5 Campylobacter enteritis; I12.9 Hypertensive chronic kidney disease with stage 1 through stage 4 chronic kidney disease, or unspecified chronic kidney disease; I50.9 Heart failure, unspecified; N18.3 Chronic kidney disease, stage 3 (moderate); K22.2 Esophageal obstruction; E11.22 Type 2 diabetes mellitus with diabetic chronic kidney disease; E78.5 Hyperlipidemia, unspecified; E66.9 Obesity, unspecified; K21.9 Gastro-esophageal reflux disease without esophagitis; K57.30 Diverticulosis of large intestine without perforation or abscess without bleeding; K29.70 Gastritis, unspecified, without bleeding; K63.5 Polyp of colon; E87.6 Hypokalemia; D53.9 Nutritional anemia, unspecified; I44.1 Atrioventricular block, second degree; I25.10 Atherosclerotic heart disease of native coronary artery without angina pectoris; Z96.1 Presence of intraocular lens; Z96.651 Presence of right artificial knee joint; I25.2 Old myocardial infarction; Z95.5 Presence of coronary angioplasty implant and graft; Z87.891 Personal history of nicotine dependence; Z83.3 Family history of diabetes mellitus; Z82.49 Family history of ischemic heart disease and other diseases of the circulatory system; Z79.02 Long term (current) use of antithrombotics/antiplatelets; Z79.82 Long term (current) use of aspirin; Z79.899 Other long term (current) drug therapy; Z98.42 Cataract extraction status, left eye; Z98.41 Cataract extraction status, right eye; Z79.4 Long term (current) use of insulin; Z79.51 Long term (current) use of inhaled steroids; K31.7 Polyp of stomach and duodenum
CPT/HCPCS: 36415; 36416; 71045; 74177; 80048; 80053; 81003; 81015; 82274; 82553; 83036; 83605; 83630; 84484; 85014; 85018; 85025; 86850; 86900; 86901; 87040; 87045; 87046; 87081; 87086; 87324; 87328; 87329; 87449; 87804; 87899; 93005; 94760; 96361; 96365; 96366; 96367; 96375; A4216; C9113; G8978-GP-CL; G8979-GP-CL; G8980-GP-CL; J0290; J0456; J1200; J2001; J2543; J2704; J3370; J7050; Q0162

== ENCOUNTER 2017-10-17 09:43 | Outpatient (CLI) | payer MEDICARE | END 2017-10-17 09:44 | disposition home or self-care (01) | LOC: LABBT 09:43 | PROVIDERS: ATTEND Internal Medicine Cardiovascular Disease | DX: Z01.818 Encounter for other preprocedural examination (principal); R00.2 Palpitations | CPT/HCPCS: 93005; 93010 ==

== ENCOUNTER 2017-10-21 12:39 | Day surgery (SDC) | payer MEDICARE ==
[2017-10-17 09:57] VITALS: BMI 28.1
[2017-10-21] MEDS ORDERED: Lidocaine 1% (PF) 30 ML VIAL ONE (13:19)
[2017-10-21] MEDS ORDERED: Lidocaine 1% w/Epinephrine 1:100K 30 ML VIAL ONE (13:20)
--- NOTE | 2017-10-21 14:19 | OP ---
DATE OF PROCEDURE: 10/21/2017 LINQ LOOP RECORDING INSERTION SURGEON: Dr. Julian Nielsen REASON FOR PROCEDURE: Mr. Townsend is an 82-year-old man with history of PVCs, prior ablations, arrhyth mias and recurrent syncopal spells here for loop recorder insertion for further long-term monitoring of his syncopal spells and arrhythmias. PROCEDURE: The patient's precordial area was prepped and draped and anesthetized using subcutaneous lidocaine and with a standard [employer] LINQ insertion tool kit incision was made over the 4th interc ostal space and following that a [employer] LINQ model number LNQ11, serial number [id number] device w as inserted. Dermabond was used for closing the wound. CONCLUSION: Successful loop recorder insertion. PLAN: Routine monitoring.
== END 2017-10-21 14:34 | disposition home or self-care (01) ==
LOC: CCL 12:39
PROVIDERS: ATTEND Internal Medicine Cardiovascular Disease
PROC: 0JH632Z Insertion of Monitoring Device into Chest Subcutaneous Tissue and Fascia, Percutaneous Approach (ICD-10-PCS; principal; 2017-10-21)
DX: R55 Syncope and collapse (principal); I49.9 Cardiac arrhythmia, unspecified; I25.10 Atherosclerotic heart disease of native coronary artery without angina pectoris; E78.5 Hyperlipidemia, unspecified; G47.30 Sleep apnea, unspecified; I12.9 Hypertensive chronic kidney disease with stage 1 through stage 4 chronic kidney disease, or unspecified chronic kidney disease; N18.9 Chronic kidney disease, unspecified; E11.22 Type 2 diabetes mellitus with diabetic chronic kidney disease; K92.2 Gastrointestinal hemorrhage, unspecified; Z95.1 Presence of aortocoronary bypass graft; Z79.02 Long term (current) use of antithrombotics/antiplatelets; Z79.4 Long term (current) use of insulin; Z79.899 Other long term (current) drug therapy
CPT/HCPCS: 33282; 93005; C1764; 93010; J2001

== ENCOUNTER 2017-12-17 10:22 | Observation (INO) | payer MEDICARE ==
[2017-12-17] MEDS ORDERED: Nitroglycerin 2% Ointment 1 INCH/1 GM Packet ONE (11:10)
[2017-12-17 11:24] LABS: Hemoglobin 11.4 g/dL (14.0-18.0); Mean Corpuscular HGB CONC 34.8 g/dL (32.0-36.0); Mean Corpuscular Hemoglobin 32.4 pg (27.0-31.0); Mean Platelet Volume 8.6 fL (7.4-10.4); Platelet Count 115 thou/uL (130-400); RBC Distribution Width 14.8 % (11.5-14.5); Red Blood Cell (RBC) Count 3.54 mill/uL (4.70-6.10); White Blood Cell (WBC) Count 6.4 thou/uL (4.8-10.8)
[2017-12-17 11:36] LABS: ALT (SGPT) 16 U/L (8-55); AST (SGOT) 18 U/L (5-34); Albumin 4.1 g/dL (3.4-4.8); Alkaline Phosphatase 76 U/L (40-150); Anion Gap 13 mmol/L (10-20); BUN (Urea Nitrogen) 19 mg/dL (8.4-25.7); Bilirubin, Total 0.5 mg/dL (0.2-1.2); Calc. Creatinine Clearance 0 mL/min (70-130); Calcium 9.3 mg/dL (7.8-10.44); Carbon Dioxide 21 mmol/L (23-31); Chloride 108 mmol/L (98-107); Estimated GFR-MDRD 49; Globulin 2.6 g/dL (2.4-3.5); Glucose 154 mg/dL (83-110); Lipase 35 U/L (8-78); Potassium 3.7 mmol/L (3.5-5.1); Protein, Total 6.7 g/dL (5.8-8.1); Sodium 138 mmol/L (136-145)
[2017-12-17 11:39] LABS: Band 5 % (5-11); Eosinophils 6 % (0-10); Lymphocytes 20 % (21-51); MDiff Complete? YES; Monocytes 8 % (0-10); Neutrophil 60 % (42-75); PLT Morphology Comment Appears Decreased; RBC Morphology Normal; Reactive Lymphocytes 1 % (0-10); Troponin I Less than 0.010 ng/mL (< 0.028)
--- NOTE | 2017-12-17 11:51 | RAD ---
PORTABLE CHEST 1 VIEW: DATE: 12/17/17. TIME: 10:19 a.m. HISTORY: Chest pain. FINDINGS: Comparison is made with the exam of 09/12/17. The heart size is enlarged. Moderate chronic changes are again seen. No lobar consolidation, pneumo thoraces, son pulmonary edema, or large effusions are identified. POS: [facility]
[2017-12-17 16:02] LABS: Troponin I Less than 0.010 ng/mL (< 0.028)
--- NOTE | 2017-12-17 16:25 | PDOC.FPRHP ---
- History of Present Illness Chief Complaint: chest pain History of Present Illness: Patient comes in with chest pain and pressure starting this morning at rest. Describes it as sharp, left, substernal, radiates to back and down left arm. Worse with exertion. Mildly relieved with rest and nitro x1 which he took at home. For the past few weeks he has been experiencing mild versions of this chest pain that come and go, no identifying triggers and sometimes occuring at rest. He typically takes SL nitro which resolves the pain. This time, the pain was more intense than his prior episodes, 02/05, and associated with nausea and diaphoresis. He has a pertinent PMH of 39 cardiac catheterizations with 14 stent placements. Denies DRAKE, vision changes, abdominal pain. ED Course: Was given SL nitro, nitro paste and morphine - Allergies/Adverse Reactions Allergies Allergy/AdvReac Type Severity Reaction Status Date / Time No Known Drug Allergies Allergy Verified 10/17/17 09:57 - Home Medications Medication Instructions Recorded Confirmed Type Aspirin [Aspirin Chewable Tablet] 81 mg PO DAILY 01/28/13 12/17/17 History Clopidogrel Bisulfate [Plavix] 75 mg PO DAILY 01/28/13 12/17/17 History Folic Acid [Folvite] 1 mg PO DAILY 08/27/13 12/17/17 History Ubidecarenone [Co Q-10] 100 mg PO DAILY 08/27/13 12/17/17 History Cyanocobalamin (Vitamin B-12) 1,200 mcg PO DAILY 02/01/15 12/17/17 History [Vitamin B12] Simvastatin 20 mg PO HS 02/01/15 12/17/17 History Cholecalciferol (Vitamin D3) 2,000 unit PO DAILY 04/16/17 12/17/17 History [Vitamin D3] Fluticasone Propionate [Flonase 1 spray EA NARE DAILY PRN 04/16/17 12/17/17 History Allergy Relief] Tamsulosin HCl [Flomax] 0.4 mg PO HS 04/16/17 12/17/17 History Arginine [L-Arginine] 500 mg PO BID 04/17/17 12/17/17 History Cholestyramine (With Sugar) 1 teaspoon PO BID PRN 04/17/17 12/17/17 History [Cholestyramine Packet] Isosorbide Mononitrate [Isosorbide 60 mg PO DAILY 04/17/17 12/17/17 History Mononitrate ER] Vit 28/Iron Fum/Folic 1 tablet PO DAILY 04/17/17 12/17/17 History [Theranatal Core Nutrition] Carvedilol 6.25 mg PO BID 09/14/17 12/17/17 History Pantoprazole [Protonix] 40 mg PO DAILY #30 tab 09/17/17 12/17/17 Rx Levemir Flexpen [Levemir FlexPen] 18 units SC BID 10/17/17 12/17/17 History Nitroglycerin [Nitrostat] 0.4 mg SL Q5MIN PRN 10/17/17 12/17/17 History - History PMHx:DM2, GERD, BPH, CKD3, HLD, HN, CAD PSHx: cholecstectomy, orthopoedic knee surgeries, cath with stents x14, cardiac ablation FHx: [place] in mom and dad. HTN Social: 40 pack year history, former smoker. occasional etoh. no drugs - Review of Systems General: reports: fatigue. denies: fever/chills, weight/appetite/sleep changes Eyes: denies: eye pain, vision changes ENT: denies: nasal congestion, rhinorrhea Respiratory: reports: cough, shortness of breath Cardiovascular: reports: chest pain, palpitation Gastrointestinal: reports: diarrhea, GI bleeding Genitourinary: denies: incontinence, dysuria Skin: denies: rashes, lesions Musculoskeletal: denies: pain, tenderness, stiffness Neurological: denies: numbness, syncope, seizure Psychological: reports: anxiety, depression - Vital signs BP: [176/53] HR: [57] RR: [21] Tmax: [98] Pox: [99]% on [RA] Wt: [88] - Physical Exam Constitutional: NAD, awake, alert and oriented HEENT: normocephalic and atraumatic, EOMI, conjunctiva clear Neck: supple Chest: no-tender to palpation, no lesions Heart: normal S1/S2, no murmurs/rubs/gallops, pulses present -Heart: bradycardic Lungs: CTAB, no respiratory distress, good air movement Abdomen: soft, non-tender, bowel sounds present Musculoskeletal: normal structure, normal tone Neurological: no focal deficit, CN II-XII intact Skin: no rash/lesions, good turgor, capillary refill <2 seconds Heme/Lymphatic: no unusual bruising or bleeding, no purpura Psychiatric: normal mood and affect, good judgment and insight FMR H&P: Results - Labs Result Diagrams: 12/17/17 11:04 12/17/17 11:04 Lab results: WBC 6.4 thou/uL (4.8-10.8) 12/17/17 11:04 Hgb 11.4 g/dL (14.0-18.0) L 12/17/17 11:04 Hct 32.9 % (42.0-52.0) L 12/17/17 11:04 MCV 93.0 fL (78.0-98.0) 12/17/17 11:04 Plt Count 115 thou/uL (130-400) L 12/17/17 11:04 Band Neuts % (Manual) 5 % (5-11) 12/17/17 11:04 Sodium 138 mmol/L (136-145) 12/17/17 11:04 Potassium 3.7 mmol/L (3.5-5.1) 12/17/17 11:04 Chloride 108 mmol/L (98-107) H 12/17/17 11:04 Carbon Dioxide 21 mmol/L (23-31) L 12/17/17 11:04 BUN 19 mg/dL (8.4-25.7) 12/17/17 11:04 Creatinine 1.39 mg/dL (0.6-1.3) H 12/17/17 11:04 Glucose 154 mg/dL (83-110) H 12/17/17 11:04 Calcium 9.3 mg/dL (7.8-10.44) 12/17/17 11:04 Total Bilirubin 0.5 mg/dL (0.2-1.2) 12/17/17 11:04 AST 18 U/L (5-34) 12/17/17 11:04 ALT 16 U/L (8-55) 12/17/17 11:04 Alkaline Phosphatase 76 U/L (40-150) 12/17/17 11:04 CK-MB (CK-2) 1.0 ng/mL (0-6.6) 12/17/17 11:04 B-Natriuretic Peptide 35.8 pg/mL (0-100) 12/17/17 11:04 Serum Total Protein 6.7 g/dL (5.8-8.1) 12/17/17 11:04 Albumin 4.1 g/dL (3.4-4.8) 12/17/17 11:04 Lipase 35 U/L (8-78) 12/17/17 11:04 - EKG Interpretation EKG: sinus mimi, LAD, RBBB, no ST elevations or T wave inversions - Radiology Interpretation Chest x-ray Status: image reviewed by me, report reviewed by me Additional comment: cardiomegaly FMR H&P: A/P - Problem List (1) Chest pain, atypical Current Visit: Yes Status: Acute Code(s): R07.89 - OTHER CHEST PAIN (2) HLD (hyperlipidemia) Current Visit: Yes Status: Acute Code(s): E78.5 - HYPERLIPIDEMIA, UNSPECIFIED (3) BPH (benign prostatic hyperplasia) Current Visit: No Status: Chronic Code(s): N40.0 - BENIGN PROSTATIC HYPERPLASIA WITHOUT LOWER URINRY TRACT SYMP (4) CAD (coronary artery disease) Current Visit: No Status: Chronic Code(s): I25.10 - ATHSCL HEART DISEASE OF [place] CORONARY ARTERY W/O ANG PCTRS (5) CKD (chronic kidney disease), stage III Current Visit: No Status: Chronic Code(s): N18.3 - CHRONIC KIDNEY DISEASE, STAGE 3 (MODERATE) (6) Diabetes type 2, controlled Current Visit: No Status: Chronic Code(s): E11.9 - TYPE 2 DIABETES MELLITUS WITHOUT COMPLICATIONS (7) GERD (gastroesophageal reflux disease) Current Visit: No Status: Chronic Code(s): K21.9 - GASTRO-ESOPHAGEAL REFLUX DISEASE WITHOUT ESOPHAGITIS (8) Hypertension Current Visit: No Status: Chronic Code(s): I10 - ESSENTIAL (PRIMARY) HYPERTENSION - Plan 82 yo M with typical chest pain, ACS r/o Typical chest pain, ACS r/o -troponins negative x2, continue trending -no ST elevations on EKG -NST in AM (suggested by pt's pharmacy salesperson when admitted to ED) -Cardiology consulted , recs kindly appreciated Hypertensive urgency -Hydralazine x1 -monitor BPs CAD -hold home BB until after stress test -continue statin, ASA, nitro, plavix, coreg -hydralzine prn HLD -continue home statin HTN -continue BPH -continue home tamsulosin GERD -continue home protonix DM2 -continue home glargine and levemir -POC, SS prn dvt ppx: lovenox discussed with dr. barnes FMR H&P: Upper Level - Pertinent history 82 yo gentleman presents with chest pain described as left sided and with radiation to his back, associated shortness of breath and diaphoresis. States it feels like his usual cardiac pain. Also had some nausea. He has a hx of [place] with 4 stents placed. He has had this chest pain off and on today, and it was relieved with nitro and morphine. - Pertinent findings PE: Gen:NAD Lungs: CTAB Cards: RRR, no m/r/g Abd: soft nontender to palpation normal bowel sounds skin: no edema or rashes Troponins .010 X2 EKG: RBBB, LAD - Plan Date/Time: 12/17/17 1623 82 yo gentleman with typical cardiac pain, admitted for this pain. #Typical Chest Pain -Will admit to obs, trend trops, provide nitro and morphine prn chest pain. -Will order a stress test d/t this pain being typical and described as similar to his baseline chest pain. Will make NPO at midnight and hold metoprolol overnight. -Was seen by Dr. Hernandez in ER who is his doctor and who recommended stress test -Will order lipid profile, tsh -Will consult cards d/t extensive heart history. #HLD -Continue home meds #HTN -Continue home meds #Type 2 Diabetes -Will order sliding scale, hba1c -restart home meds #Hx of [place] s/p 4 stents placed -Pt of Dr. Hernandez -Stress test ordered -Cards consulted. I, [], have evaluated this patient and agree with findings/plan as outlined by internet systems administrator resident. Pertinent changes/additions are listed here.
[2017-12-17] MEDS ORDERED: Nitroglycerin 0.4 MG TAB (25 Tab Bottle) SL PRN (16:36)
[2017-12-17] MEDS ORDERED: Cholestyramine/Aspartame 4 gm Packet PO PRN (16:36)
[2017-12-17] MEDS ORDERED: Clopidogrel Bisulfate 75 MG TAB PO SCH (17:30)
[2017-12-17 18:40] VITALS: BMI 30.4
[2017-12-17] MEDS ORDERED: hydrALAZINE 20 MG/ML VIAL SLOW IVP PRN (19:29)
[2017-12-17] MEDS ORDERED: HumaLOG 300 UNITS/3 ML VIAL SC PRN ×2 (19:32)
[2017-12-17] MEDS ORDERED: Dextrose 50% Abboject 50 ML SYRINGE SLOW IVP PRN (19:32)
[2017-12-17] MEDS ORDERED: Dextrose 5% in Water 1,000 ML IV PRN (19:32)
[2017-12-17] MEDS: Lactated Ringer's 1,000 ML IV SCH (19:44)
[2017-12-17] MEDS ORDERED: Carvedilol 6.25 MG TAB PO SCH (21:00)
[2017-12-17] MEDS ORDERED: LEVEMIR 18 UNIT SC SCH (21:00)
[2017-12-17] MEDS ORDERED: Tamsulosin HCl 0.4 MG CAP PO SCH (21:00)
[2017-12-17] MEDS ORDERED: ARGININE 500 MG PO SCH (21:00)
[2017-12-17] MEDS ORDERED: Atorvastatin Calcium 10 MG TAB PO SCH (21:00)
--- NOTE | 2017-12-17 21:14 | HP ---
I have reviewed the history and physical of Dr. Sylvie Martínez and agreed with her assessment and uday n. HISTORY OF PRESENT ILLNESS: Mr. Townsend is a very pleasant 82-year-old man with an extensive past medi nika history of coronary artery disease with multiple stent placement commencing in 1979. He has been having intermittent chest discomfort at rest for the last several weeks but had particularly severe episode today that prompted him coming to our emergency room. There, his initial EKG showed a right- bundle branch block, no acute ST segment changes. His initial troponin level was negative. He has b een admitted for further evaluation and consultation with Cardiology. PHYSICAL EXAMINATION: GENERAL: Mr. Townsend is very pleasant. He is in no distress. He is awake, alert, and currently not h aving any chest discomfort. VITAL SIGNS: Blood pressure is 160/80, his pulse rate is 82 and regular, respirations are 14. He is afebrile. EAR, NOSE AND THROAT: No JVD. NECK: Supple. CARDIAC: His heart rhythm is regular. S4 gallop. No murmur or rub noted. LUNGS: Breath sounds diminished, but without rales, rhonchi, or wheezes. No use of accessory muscle s nor any signs of respiratory distress. ABDOMEN: Obese but flat, soft. No guarding, rebound, or rigidity. EXTREMITIES: 1+ pretibial edema. NEUROLOGIC: No focal deficits. LABORATORY DATA: CBC: White count of 6400, hemoglobin is 11.4, hematocrit is 32.9 with an MCV of 93 . His platelets are slightly low at 115. Differential is normal with a white count 6400. Chemistries: His initial troponin was less than 0.01. His second troponin was also less than 0.01. Sodium is 138, potassium 3.7, chloride 108, bicarbonate 21, BUN 19, creatinine 1.39, glucose is 154. His AST is 18, ALT is 16. EKG demonstrates a right bundle-branch block and resulted in left axis deviation, but no acute ST seg ment changes. ASSESSMENT: Possible unstable angina. PLAN: The patient has been admitted, restart meds and we will consult with Cardiology.
[2017-12-17] MEDS: Insulin Glargine 18 UNITS in Pre-Filled Syringe 1 EACH SC SCH (22:55)
--- NOTE | 2017-12-17 23:31 | CON ---
DATE OF CONSULTATION: 12/17/2017 REASON FOR CONSULTATION: Chest pain. HISTORY OF PRESENT ILLNESS: Mr. Townsend is a very pleasant 82-year-old gentleman who is a patient of Will Hernandez. He has an extensive cardiac history. He states he recently presented with ches t pain hypertension. He does admit to having sleep apnea without treatment. He has had chroni c stable angina for some years. He has undergone extensive workup per his history up to 30 heart cat heterizations by a previous deckhand tuna boat. He is currently chest pain free. His enzymes so far have been negative. PAST MEDICAL HISTORY: Hypertension, hyperlipidemia, diabetes mellitus, CAD status post stent placeme nt in 2012, last angio dated 2014 with no significant changes from 2013 heart catheterization, last s tress test dated 10/10/2016 with no reversible ischemia distal lateral and inferior scar present. Ot her past medical history includes nephrolithiasis, laparoscopic cholecystectomy, tonsillectomy, knee surgery, cataract surgery, hemorrhoidectomy, diabetes mellitus, sleep apnea, diastolic dysfunction. ALLERGIES: None. HOME MEDICATIONS: Folic acid, Levemir, vitamin, Flonase, Plavix, aspirin, Prevacid, CoQ10, vitamin , simvastatin, tamsulosin, nitroglycerin, Coreg, isosorbide. REVIEW OF SYSTEMS: Ten-point review of systems reviewed and as above, otherwise negative. PHYSICAL EXAMINATION: GENERAL: Patient is a pleasant male who is in no acute distress. The patient appears his stated age. VITAL SIGNS: Blood pressure 130/70, pulse 80, respirations 20. NEUROLOGIC: The patient is alert and oriented times 3 with no focal neurologic deficits. HEENT: Sclerae without icterus. Mouth has moist mucous membranes with normal pallor. NECK: No JVD. Carotid upstroke brisk. No bruits bilaterally. LUNGS: Clear to auscultation with unlabored respirations. BACK: No scoliosis or kyphosis. CARDIAC: Regular rate and rhythm with normal S1 and S2. No S3 or S4 noted. No significant rubs, murmurs, thrills, or gallops noted throughout the precordium. PMI is not displa mandy. There is no parasternal heave. ABDOMEN: Soft, nontender, nondistended. No peritoneal signs present. No hepatosplenomegaly. No abnormal striae. EXTREMITIES: 2+ femoral and 2+ dorsalis pedis pulses. No cyanosis, clubbing, or edema. SKIN: No gross abnormalities. PERTINENT LABS: CK and troponin negative. Hemoglobin 11.4 and creatinine 1.39. IMPRESSION: 1. Chronic stable angina. 2. Coronary artery disease. 3. Hypertension. RECOMMENDATIONS: Aggressive blood pressure management is warranted. I also discussed the risks of s leep apnea and difficult to control blood pressure. He states he would like to relook at a sleep bryan dy. At this point, we will continue home medications and make adjustments if needed. May also consi jina Ranexa.
[2017-12-18 05:03] LABS: #Eosinphils 0.3 thou/uL (0.0-0.7); #Lymphocytes 0.8 thou/uL (1.20-3.40); #Monocytes 0.7 thou/uL (0.11-0.59); #Neutrophils 5.6 thou/uL (1.40-6.50); %Basophils 0.4 % (0.0-1.0); %Eosinophils 4.3 % (0.0-10.0); %Lymphocytes 10.9 % (21.0-51.0); %Monocytes 9.3 % (0.0-10.0); %Neutrophils 75.1 % (42.0-75.0); Hemoglobin 10.9 g/dL (14.0-18.0); Mean Corpuscular HGB CONC 35.2 g/dL (32.0-36.0); Mean Corpuscular Hemoglobin 32.9 pg (27.0-31.0); Mean Corpuscular Volume 93.5 fL (78.0-98.0); Mean Platelet Volume 9.4 fL (7.4-10.4); Platelet Count 117 thou/uL (130-400); RBC Distribution Width 14.8 % (11.5-14.5); Red Blood Cell (RBC) Count 3.31 mill/uL (4.70-6.10); White Blood Cell (WBC) Count 7.4 thou/uL (4.8-10.8)
[2017-12-18 05:16] LABS: ALT (SGPT) 14 U/L (8-55); AST (SGOT) 17 U/L (5-34); Albumin 3.7 g/dL (3.4-4.8); Alkaline Phosphatase 70 U/L (40-150); Anion Gap 12 mmol/L (10-20); BUN (Urea Nitrogen) 18 mg/dL (8.4-25.7); Bilirubin, Total 0.5 mg/dL (0.2-1.2); Calc. Creatinine Clearance 58 mL/min (70-130); Carbon Dioxide 23 mmol/L (23-31); Cardiac Risk 4.9 (Less than 4.5); Chloride 108 mmol/L (98-107); Cholesterol 117 mg/dl (< 200 Desired); Estimated GFR-MDRD 57; Globulin 2.4 g/dL (2.4-3.5); Glucose 159 mg/dL (83-110); HDL Cholesterol 24 mg/dL (>60 Neg Risk); LDL Cholesterol, Calculated 43 mg/dL; Potassium 3.7 mmol/L (3.5-5.1); Protein, Total 6.1 g/dL (5.8-8.1); Sodium 139 mmol/L (136-145); Triglycerides 251 mg/dL (Less than 150)
[2017-12-18 05:19] LABS: Troponin I Less than 0.010 ng/mL (< 0.028)
--- NOTE | 2017-12-18 06:23 | PDOC.FM ---
- Subjective Subjective: No acute events overnight. Denies chest pain, headache, nausea. - Objective MAR Reviewed: Yes Vital Signs & Weight: Vital Signs (12 hours) Temp Pulse Resp BP Pulse Ox 12/18/17 04:10 97.9 F 73 20 105/54 L 95 12/17/17 22:53 97.6 F 82 20 127/63 95 12/17/17 20:51 97.6 F 82 20 12/17/17 20:49 86 168/77 H 12/17/17 19:46 164/73 H Weight Weight 86.591 kg I&O: 12/16/17 12/17/17 12/18/17 06:59 06:59 06:59 Intake Total 1098 Output Total 550 Balance 548 Result Diagrams: 12/18/17 04:16 12/18/17 04:16 <Sylvie Martínez - Last Filed: 12/18/17 08:45> - Objective Vital Signs & Weight: Vital Signs (12 hours) Temp Pulse Resp BP Pulse Ox 12/18/17 11:55 98.0 F 80 16 116/56 L 97 12/18/17 08:00 97.8 F 73 18 128/60 94 L 12/18/17 07:39 95 12/18/17 04:10 97.9 F 73 20 105/54 L 95 Weight Weight 86.591 kg I&O: 12/17/17 12/18/17 12/19/17 06:59 06:59 06:59 Intake Total 1098 Output Total 550 150 Balance 548 -150 Result Diagrams: 12/18/17 04:16 12/18/17 04:16 <Lewis Lopez - Last Filed: 12/18/17 12:05> Phys Exam - Physical Examination Constitutional: NAD HEENT: moist MMs Neck: full ROM Respiratory: no wheezing, no rales, clear to auscultation bilateral Cardiovascular: RRR, no significant murmur Gastrointestinal: soft, non-tender Musculoskeletal: no edema, pulses present Neurological: non-focal, moves all 4 limbs <Sylvie Martínez - Last Filed: 12/18/17 08:45> Dx/Plan (1) Chest pain, atypical Code(s): R07.89 - OTHER CHEST PAIN Status: Acute (2) HLD (hyperlipidemia) Code(s): E78.5 - HYPERLIPIDEMIA, UNSPECIFIED Status: Acute (3) BPH (benign prostatic hyperplasia) Code(s): N40.0 - BENIGN PROSTATIC HYPERPLASIA WITHOUT LOWER URINRY TRACT SYMP Status: Chronic (4) CAD (coronary artery disease) Code(s): I25.10 - ATHSCL HEART DISEASE OF [place] CORONARY ARTERY W/O ANG PCTRS Status: Chronic (5) CKD (chronic kidney disease), stage III Code(s): N18.3 - CHRONIC KIDNEY DISEASE, STAGE 3 (MODERATE) Status: Chronic (6) Diabetes type 2, controlled Code(s): E11.9 - TYPE 2 DIABETES MELLITUS WITHOUT COMPLICATIONS Status: Chronic (7) GERD (gastroesophageal reflux disease) Code(s): K21.9 - GASTRO-ESOPHAGEAL REFLUX DISEASE WITHOUT ESOPHAGITIS Status: Chronic (8) Hypertension Code(s): I10 - ESSENTIAL (PRIMARY) HYPERTENSION Status: Chronic - Plan Plan: 82 yo M with chronic stable angina Typical chest pain 2/2 chronic stable angina -contributing factors: untreated CRISTIANA, poorly controlled HTN -last stents placed in 2012, last angio in 2014, NST in 09/2016 -CE negative -Cards rx medical management Hypertensive urgency, resolved -BPs well controlled overnight after administering home dose of imdur (120mg) CAD -continue statin, ASA, nitro, plavix, coreg, bb -hydralzine prn Normocytic anemia -stable, asymptomatic, not acutely contributing to patient's status. can be worked up in outpatient setting. Hypertriglyceridemia -prior admissions show TG in 200s -consider switching from home simvastatin to high intensity statin (atorvastatin ) upon discharge chronic HTN -continue imdur BPH -continue home tamsulosin GERD -continue home protonix DM2 -continue home glargine and levemir -POC, SS prn dvt ppx: lovenox discussed with dr. barnes <Sylvie Martínez - Last Filed: 12/18/17 08:45> Attending Addendum - Attending Addendum Date/Time: 12/18/17 6638 I personally evaluated the patient and discussed the management with Dr. Martínez. I agree with the History, Examination, Assessment and Plan documented above with any addition or exceptions noted below. Patient doing well and has no recurrent chest pain. No telemetry changes and no enzyme evidence of ACS. Case discussed with patient's embroiderer hand and he will be discharged home today with further follow up with cardiology as outpatient. Increasing statin to high intensity range. <Lewis Lopez - Last Filed: 12/18/17 12:05>
[2017-12-18] MEDS ORDERED: Ubidecarenone 50 MG CAP PO SCH (09:00)
[2017-12-18] MEDS ORDERED: Enoxaparin Sodium 40 MG/0.4 ML SYRINGE SC SCH (09:00)
[2017-12-18] MEDS ORDERED: Folic Acid 1 MG TAB PO SCH (09:00)
[2017-12-18] MEDS ORDERED: Prenatal Vitamin 1 TAB PO SCH (09:00)
[2017-12-18] MEDS ORDERED: CYANOCOBALAMIN PO SCH (09:00)
[2017-12-18] MEDS ORDERED: Clopidogrel Bisulfate 75 MG TAB PO SCH (09:00)
[2017-12-18] MEDS: Insulin Glargine 18 UNITS in Pre-Filled Syringe 1 EACH SC SCH ×2 (10:15→11:57)
[2017-12-18 11:57] VITALS: BP 116/56; TEMP 98
[2017-12-18] MEDS: Lactated Ringer's 1,000 ML IV SCH (12:24)
[2017-12-18] MEDS ORDERED: Atorvastatin Calcium 40 MG TAB PO SCH (21:00)
--- NOTE | 2017-12-21 11:20 | EKG ---
Test Reason : CP Blood Pressure : / mmHG Vent. Rate : 055 BPM Atrial Rate : 055 BPM P-R Int : 222 ms QRS Dur : 162 ms QT Int : 500 ms P-R-T Axes : 035 -87 033 degrees QTc Int : 478 ms Sinus bradycardia with 1st degree A-V block Left axis deviation Right bundle branch block Abnormal ECG Confirmed by GHAZAL SWARTZ DO ([id number]), senior editor STEPHANIE VILLA ([id number]) on 12/21/2017 11:19:43 AM Referred By: Confirmed By:GHAZAL SWARTZ DO
--- NOTE | 2017-12-21 11:20 | EKG ---
Test Reason : CP Blood Pressure : / mmHG Vent. Rate : 079 BPM Atrial Rate : 079 BPM P-R Int : 212 ms QRS Dur : 158 ms QT Int : 448 ms P-R-T Axes : 041 259 039 degrees QTc Int : 513 ms Sinus rhythm with 1st degree A-V block Right bundle branch block Abnormal ECG Confirmed by GHAZAL SWARTZ DO ([id number]), content editor STEPHANIE VILLA ([id number]) on 12/21/2017 11:19:40 AM Referred By: Confirmed By:GHAZAL SWARTZ DO
== END 2017-12-18 14:49 | disposition home or self-care (01) ==
LOC: ERS 10:22 → ERHOLD 13:41 → 2SW 17:40
PROVIDERS: ADMIT Student in an Organized Health Care Education/Training Program; ATTEND Student in an Organized Health Care Education/Training Program
DX: I25.118 Atherosclerotic heart disease of native coronary artery with other forms of angina pectoris (principal); I12.9 Hypertensive chronic kidney disease with stage 1 through stage 4 chronic kidney disease, or unspecified chronic kidney disease; E11.22 Type 2 diabetes mellitus with diabetic chronic kidney disease; N18.3 Chronic kidney disease, stage 3 (moderate); D63.1 Anemia in chronic kidney disease; G47.33 Obstructive sleep apnea (adult) (pediatric); K21.9 Gastro-esophageal reflux disease without esophagitis; E78.5 Hyperlipidemia, unspecified; N40.0 Benign prostatic hyperplasia without lower urinary tract symptoms; I16.0 Hypertensive urgency; I25.2 Old myocardial infarction; Z87.891 Personal history of nicotine dependence; Z79.82 Long term (current) use of aspirin; Z79.02 Long term (current) use of antithrombotics/antiplatelets; Z79.4 Long term (current) use of insulin; Z79.899 Other long term (current) drug therapy; Z95.5 Presence of coronary angioplasty implant and graft
CPT/HCPCS: 71045; 80053 ×2; 80061; 82553; 82962 ×2; 83690; 83880; 84484 ×3; 85025 ×2; 93005; 94760; 96361 ×2; 96372; 96374; 96376 ×2; 99285; G0378 ×2; 36415; 36416; J1650; J2270

== ENCOUNTER 2018-03-31 13:17 | Observation (INO) | payer MEDICARE ==
[2018-03-31 14:14] LABS: #Eosinphils 0.4 thou/uL (0.0-0.7); #Lymphocytes 0.9 thou/uL (1.20-3.40); #Monocytes 0.8 thou/uL (0.11-0.59); #Neutrophils 4.7 thou/uL (1.40-6.50); %Basophils 0.6 % (0.0-1.0); %Eosinophils 5.3 % (0.0-10.0); %Lymphocytes 13.3 % (21.0-51.0); %Monocytes 11.7 % (0.0-10.0); %Neutrophils 69.1 % (42.0-75.0); Hemoglobin 8.1 g/dL (14.0-18.0); Mean Corpuscular Hemoglobin 30.5 pg (27.0-31.0); Mean Corpuscular Volume 92.4 fL (78.0-98.0); Mean Platelet Volume 9.5 fL (7.4-10.4); Platelet Count 139 thou/uL (130-400); RBC Distribution Width 13.6 % (11.5-14.5); Red Blood Cell (RBC) Count 2.65 mill/uL (4.70-6.10); White Blood Cell (WBC) Count 6.9 thou/uL (4.8-10.8)
[2018-03-31 14:24] LABS: ALT (SGPT) 11 U/L (8-55); AST (SGOT) 14 U/L (5-34); Albumin 3.7 g/dL (3.4-4.8); Alkaline Phosphatase 60 U/L (40-150); Anion Gap 12 mmol/L (10-20); BUN (Urea Nitrogen) 20 mg/dL (8.4-25.7); Bilirubin, Total 0.3 mg/dL (0.2-1.2); CK (CPK) 19 U/L (30-200); Calc. Creatinine Clearance 0 mL/min (70-130); Calcium 9.1 mg/dL (7.8-10.44); Carbon Dioxide 24 mmol/L (23-31); Chloride 104 mmol/L (98-107); Estimated GFR-MDRD 51; Globulin 2.6 g/dL (2.4-3.5); Glucose 151 mg/dL (83-110); Potassium 4.5 mmol/L (3.5-5.1); Protein, Total 6.3 g/dL (5.8-8.1); Sodium 135 mmol/L (136-145)
[2018-03-31 14:38] LABS: Troponin I Less than 0.010 ng/mL (< 0.028)
--- NOTE | 2018-03-31 15:01 | RAD ---
FRONTAL RADIOGRAPH CHEST: DATE: 03/31/2018. COMPARISON: 12/17/2017. HISTORY: Chest pain with radiation to the back and arm. FINDINGS: There is atherosclerotic calcification in the aortic arch. There is no pneumothorax, pleural fluid, focal consolidation, or alveolar edema. No interval change when compared to the prior exam. IMPRESSION: Stable appearance of the chest - no acute findings. POS: ENRRIQUE
--- NOTE | 2018-03-31 15:49 | PDOC.FPRHP ---
- History of Present Illness Chief Complaint: Chest pain History of Present Illness: This is an 82 year old male with reported PMH including CAD, HTN, CHF , and type 2 diabetes who presented to the ED for chest pain that has been occurring the past two days. Patient reports that yesterday he experienced four intermittent episodes of sharp pain in his left upper chest radiating to his left shoulder and down his back. He described one instance of the pain occurring while shopping at [employer] yesterday with his girlfriend. He avoided seeking medical attention at this time. Today he experienced the similar pain while he was sitting talking to his home health nurse who then prompted him to go to the ED. Patient states the episodes lasted from seconds to minutes. Patient states that he has had this pain before and endorses associated symptoms including shortness of breath, diaphoresis, and nausea. The pain occurs both at rest and during exertion and had some improvement with self administration of nitro. Patient endorses SOB when lying flat. Patient denies vomiting, diarrhea, fever, chills, abdominal pain, or LE edema. Patient notes having 39 previous cardiac catheterizations and 14 stents placed[address] Patient sees Dr. Hernandez cardiology. - Allergies/Adverse Reactions Allergies Allergy/AdvReac Type Severity Reaction Status Date / Time No Known Drug Allergies Allergy Verified 03/31/18 21:54 watermelon Allergy Verified 03/31/18 21:54 - Home Medications Medication Instructions Recorded Confirmed Type Aspirin [Aspirin Chewable Tablet] 81 mg PO DAILY 01/28/13 03/31/18 History Clopidogrel Bisulfate [Plavix] 75 mg PO DAILY 01/28/13 03/31/18 History Folic Acid [Folvite] 1 mg PO DAILY 08/27/13 03/31/18 History Ubidecarenone [Co Q-10] 200 mg PO DAILY 08/27/13 03/31/18 History Cyanocobalamin (Vitamin B-12) 1,200 mcg PO DAILY 02/01/15 03/31/18 History [Vitamin B12] Cholecalciferol (Vitamin D3) 1,000 unit PO DAILY 04/16/17 03/31/18 History [Vitamin D3] Fluticasone Propionate [Flonase 1 spray EA NARE DAILY PRN 04/16/17 03/31/18 History Allergy Relief] Tamsulosin HCl [Flomax] 0.4 mg PO HS 04/16/17 03/31/18 History Arginine [L-Arginine] 500 mg PO BID 04/17/17 03/31/18 History Cholestyramine (With Sugar) 1 teaspoon PO DAILY 04/17/17 03/31/18 History [Cholestyramine Packet] Isosorbide Mononitrate [Isosorbide 120 mg PO DAILY 04/17/17 03/31/18 History Mononitrate ER] Vit 28/Iron Fum/Folic 1 tablet PO DAILY 04/17/17 03/31/18 History [Theranatal Core Nutrition] Carvedilol 6.25 mg PO BID 09/14/17 03/31/18 History Pantoprazole [Protonix] 40 mg PO DAILY #30 tab 09/17/17 03/31/18 Rx Levemir Flexpen [Levemir FlexPen] 24 units SC BID 10/17/17 03/31/18 History Nitroglycerin [Nitrostat] 0.4 mg SL Q5MIN PRN 10/17/17 03/31/18 History Atorvastatin Calcium [Lipitor] 40 mg PO HS 30 Days tab 12/18/17 03/31/18 Rx Ranolazine [Ranexa] 1,000 mg PO BID 03/31/18 03/31/18 History Acetaminophen [Tylenol Regular 650 mg PO Q4H PRN tab 04/01/18 Rx Strength] - History PMHx: CAD, GERD, CKD3, HTN, CHF, HLD, BPH Type 2 diabetes PSHx: cholecystectomy, tonsils and adenoidectomy, 14 cardiac stents, 39 cardiac caths, cardiac ablation FHx: [place] in mother and father, HTN Social: current non-smoker, previously 3-4 ppd for 30 years, rare alcohol, no illicit drugs - Review of Systems General: denies: fever/chills, weight/appetite/sleep changes Eyes: denies: eye pain, vision changes ENT: denies: nasal congestion, rhinorrhea Respiratory: reports: shortness of breath. denies: cough Cardiovascular: reports: chest pain. denies: palpitation Gastrointestinal: reports: nausea. denies: vomiting Genitourinary: denies: incontinence, dysuria Skin: denies: rashes, lesions Musculoskeletal: denies: pain, tenderness Neurological: denies: numbness, weakness Psychological: denies: anxiety, depression - Vital signs BP: 158/83 HR: 76 RR: 16 Tmax: 98.1 Pox: 94% on RA Wt: 81.65kg - Physical Exam Constitutional: NAD, awake, alert and oriented, well developed HEENT: normocephalic and atraumatic, EOMI Neck: supple, trachea midline Chest: no-tender to palpation, no lesions Heart: RRR, normal S1/S2 Lungs: no respiratory distress, other (bilateral basilar crackles, greater on R) Abdomen: soft, non-tender, bowel sounds present Musculoskeletal: normal structure, normal tone Neurological: no focal deficit, CN II-XII intact Skin: no rash/lesions, good turgor Heme/Lymphatic: no unusual bruising or bleeding, no purpura Psychiatric: normal mood and affect, good judgment and insight, intact recent and remote memory FMR H&P: Results - Labs Result Diagrams: 04/01/18 06:34 04/01/18 06:34 Lab results: WBC 6.9 thou/uL (4.8-10.8) 03/31/18 13:59 Hgb 8.1 g/dL (14.0-18.0) L 03/31/18 13:59 Hct 24.5 % (42.0-52.0) L 03/31/18 13:59 MCV 92.4 fL (78.0-98.0) 03/31/18 13:59 Plt Count 139 thou/uL (130-400) 03/31/18 13:59 Neutrophils % 69.1 % (42.0-75.0) 03/31/18 13:59 Sodium 135 mmol/L (136-145) L 03/31/18 13:59 Potassium 4.5 mmol/L (3.5-5.1) 03/31/18 13:59 Chloride 104 mmol/L (98-107) 03/31/18 13:59 Carbon Dioxide 24 mmol/L (23-31) 03/31/18 13:59 BUN 20 mg/dL (8.4-25.7) 03/31/18 13:59 Creatinine 1.34 mg/dL (0.6-1.3) H 03/31/18 13:59 Glucose 151 mg/dL (83-110) H 03/31/18 13:59 Calcium 9.1 mg/dL (7.8-10.44) 03/31/18 13:59 Total Bilirubin 0.3 mg/dL (0.2-1.2) 03/31/18 13:59 AST 14 U/L (5-34) 03/31/18 13:59 ALT 11 U/L (8-55) 03/31/18 13:59 Alkaline Phosphatase 60 U/L (40-150) 03/31/18 13:59 Creatine Kinase 19 U/L (30-200) L 03/31/18 13:59 CK-MB (CK-2) 1.0 ng/mL (0-6.6) 03/31/18 13:59 B-Natriuretic Peptide 56.9 pg/mL (0-100) 03/31/18 13:59 Serum Total Protein 6.3 g/dL (5.8-8.1) 03/31/18 13:59 Albumin 3.7 g/dL (3.4-4.8) 03/31/18 13:59 - EKG Interpretation EKst degree AV block, RBBB, left axis deviation - Radiology Interpretation Chest x-ray Status: report reviewed by me Additional comment: stable appearance, no acute findings FMR H&P: A/P - Problem List (1) Chest pain Status: Acute Code(s): R07.9 - CHEST PAIN, UNSPECIFIED (2) HLD (hyperlipidemia) Status: Acute Code(s): E78.5 - HYPERLIPIDEMIA, UNSPECIFIED (3) BPH (benign prostatic hyperplasia) Status: Chronic Code(s): N40.0 - BENIGN PROSTATIC HYPERPLASIA WITHOUT LOWER URINRY TRACT SYMP (4) CAD (coronary artery disease) Status: Chronic Code(s): I25.10 - ATHSCL HEART DISEASE OF [place] CORONARY ARTERY W/O ANG PCTRS (5) CKD (chronic kidney disease), stage III Status: Chronic Code(s): N18.3 - CHRONIC KIDNEY DISEASE, STAGE 3 (MODERATE) (6) Diabetes type 2, controlled Status: Chronic Code(s): E11.9 - TYPE 2 DIABETES MELLITUS WITHOUT COMPLICATIONS (7) GERD (gastroesophageal reflux disease) Status: Chronic Code(s): K21.9 - GASTRO-ESOPHAGEAL REFLUX DISEASE WITHOUT ESOPHAGITIS (8) Hypertension Status: Chronic Code(s): I10 - ESSENTIAL (PRIMARY) HYPERTENSION - Plan Unstable angina, ACS rule out - initial troponins negative, continue to trend - ECG shows RBBB, 1st degree AV block consistent with prev from November, no ST elevation - patient stated he discussed with cardiologists decision to not pursue further caths - no current active chest pain - TTE pending Chronic normocytic Anemia - Hgb 8, baseline of 10 - pt gets monthly iron infusions - Will continue to monitor with AM CBC - Will give iron CAD - continue ASA, clopidogrel HLD - continue atorvastatin HTN - continue carvedilol - hydralazine prn BPH - continue tamsulosin GERD - continue protonix DM2 - continue home glargine and levemir - sliding scale DVT ppx: lovenox CODE: FULL DISPO: admit to tele for observation Case discussed with Dr. Nicole FMR H&P: Upper Level - Pertinent history 82M with extensive cardiac history that includes 14 stents and 39 catheterizations. Endorses chest pain over the last two days described as sharp , substernal, and radiating to his left shoulder. It is occurring both with exertion and at rest. This is uncharacteristic for him, and caused him to seek further care in the ER. He takes nitro SL with resolution of chest pain in most cases. Associated with SOB, diaphoresis, and nausea. - Pertinent findings EKG shows first degree AV block troponins negative in ER - Plan Date/Time: 03/31/18 1549 Unstable Angina: admit tele/obs. Trend troponins. Per patient, he will no longer be undergoing catheterizations with his Paid Internship, Dr. Hernandez. Symptomatic treatment with nitro, morphine, and oxygen. CAD: continue ASA and plavix. Consult cardiology. TTE tomorrow Normocytic anemia: hemoglobin of 8.0. Will trend and monitor need for iron infusion. I, Karlos Machado, have evaluated this patient and agree with findings/plan as outlined by international logistics coordinator resident. Pertinent changes/additions are listed here. Attending Addendum - Attending Addendum Date/Time: 04/07/18 1106 I personally evaluated the patient and discussed the management with Dr. Soto on 03/31/18. I agree with the History, Examination, Assessment and Plan documented above with any addition or exceptions noted below. 82 y.o. WM w/ h/o CAD now at medical management only, GERD, CKD3, HTN, CHF, HLD , BPH, DMII, >100 pack year smoking hx now quit with atypical CP to be evaluated and monitored With EKG, and labs. Currently EKG is unchanged from previous and CE's negative for infarct. Pt. high risk for coronary event and sCHF. Will obs and obtain Echo.
[2018-03-31] MEDS ORDERED: Nitroglycerin 0.4 MG TAB (25 Tab Bottle) PO PRN (16:14)
[2018-03-31] MEDS ORDERED: Acetaminophen 325 MG TAB PO PRN (16:14)
[2018-03-31] MEDS ORDERED: Ondansetron PF 4 MG/2 ML Vial IVP PRN (16:14)
[2018-03-31] MEDS ORDERED: Ondansetron ODT 4 MG TAB PO PRN (16:14)
[2018-03-31] MEDS ORDERED: Dextrose 50% Abboject 50 ML SYRINGE SLOW IVP PRN (16:38)
[2018-03-31] MEDS ORDERED: HumaLOG 300 UNITS/3 ML VIAL SC PRN (16:38)
[2018-03-31] MEDS ORDERED: Dextrose 5% in Water 1,000 ML IV PRN (16:38)
[2018-03-31] MEDS ORDERED: Morphine 4 MG/ML VIAL SLOW IVP PRN (17:31)
[2018-03-31 17:50] LABS: Troponin I Less than 0.010 ng/mL (< 0.028)
[2018-03-31 20:51] LABS: Troponin I Less than 0.010 ng/mL (< 0.028)
[2018-03-31 21:32] VITALS: BMI 29.8
[2018-03-31] MEDS ORDERED: Carvedilol 6.25 MG TAB PO SCH (22:30)
[2018-03-31] MEDS ORDERED: Insulin Glargine 24 UNITS in Pre-Filled Syringe 1 EACH SC SCH (22:30)
[2018-03-31] MEDS ORDERED: Atorvastatin Calcium 40 MG TAB PO SCH (22:30)
[2018-03-31] MEDS ORDERED: Tamsulosin HCl 0.4 MG CAP PO ONE (22:30)
[2018-03-31] MEDS ORDERED: Tamsulosin HCl 0.4 MG CAP PO SCH (22:45)
[2018-04-01] MEDS ORDERED: Nitroglycerin 0.4 MG TAB (25 Tab Bottle) SL PRN (04:17)
[2018-04-01] MEDS ORDERED: Fluticasone Propionate Nasal Spray 16 gm Bottle NASAL PRN (04:17)
--- NOTE | 2018-04-01 05:57 | PDOC.FM ---
- Subjective Subjective: Patient resting comfortably in bed. No overnight events. Patient states that he has not had chest pain since leaving the ER yesterday. Patient states he tolerated PO. Denies NVD, chest pain, fever, chills, or diaphoresis. Patient states he feels well overall. - Objective Vital Signs & Weight: Vital Signs (12 hours) Temp Pulse Resp BP BP Pulse Ox 04/01/18 04:40 98.6 F 78 14 118/56 L 95 03/31/18 23:31 97.7 F 80 12 129/60 94 L 03/31/18 22:45 125/59 L 03/31/18 22:44 80 125/59 L 03/31/18 21:00 97.7 F 84 18 153/67 H 93 L 03/31/18 20:00 94 L Weight Weight 86.5 kg I&O: 03/30/18 03/31/18 04/01/18 06:59 06:59 06:59 Intake Total 250 Output Total 1225 Balance -975 Result Diagrams: 04/01/18 06:34 04/01/18 06:34 <Talya Soto - Last Filed: 04/01/18 07:58> - Objective Vital Signs & Weight: Vital Signs (12 hours) Temp Pulse Resp BP BP Pulse Ox 04/01/18 07:56 98.0 F 76 16 115/56 L 94 L 04/01/18 06:34 95 04/01/18 04:40 98.6 F 78 14 118/56 L 95 03/31/18 23:31 97.7 F 80 12 129/60 94 L 03/31/18 22:45 125/59 L 03/31/18 22:44 80 125/59 L Weight Weight 86.5 kg I&O: 03/31/18 04/01/18 04/02/18 06:59 06:59 06:59 Intake Total 250 Output Total 1225 Balance -975 Result Diagrams: 04/01/18 06:34 04/01/18 06:34 <Moshe Nicole - Last Filed: 04/01/18 09:14> Phys Exam - Physical Examination Constitutional: NAD HEENT: PERRLA, moist MMs, sclera anicteric Neck: supple, full ROM Respiratory: clear to auscultation bilateral Cardiovascular: RRR, no significant murmur, no rub Gastrointestinal: soft, non-tender, positive bowel sounds Musculoskeletal: no edema, pulses present Neurological: non-focal Psychiatric: normal affect, A&O x 3 Skin: no rash <Talya Soto - Last Filed: 04/01/18 07:58> Dx/Plan (1) Chest pain Code(s): R07.9 - CHEST PAIN, UNSPECIFIED Status: Acute (2) HLD (hyperlipidemia) Code(s): E78.5 - HYPERLIPIDEMIA, UNSPECIFIED Status: Acute (3) BPH (benign prostatic hyperplasia) Code(s): N40.0 - BENIGN PROSTATIC HYPERPLASIA WITHOUT LOWER URINRY TRACT SYMP Status: Chronic (4) CAD (coronary artery disease) Code(s): I25.10 - ATHSCL HEART DISEASE OF [place] CORONARY ARTERY W/O ANG PCTRS Status: Chronic (5) CKD (chronic kidney disease), stage III Code(s): N18.3 - CHRONIC KIDNEY DISEASE, STAGE 3 (MODERATE) Status: Chronic (6) Diabetes type 2, controlled Code(s): E11.9 - TYPE 2 DIABETES MELLITUS WITHOUT COMPLICATIONS Status: Chronic (7) GERD (gastroesophageal reflux disease) Code(s): K21.9 - GASTRO-ESOPHAGEAL REFLUX DISEASE WITHOUT ESOPHAGITIS Status: Chronic (8) Hypertension Code(s): I10 - ESSENTIAL (PRIMARY) HYPERTENSION Status: Chronic - Plan Plan: Unstable angina, ACS rule out - Trop neg - ECG shows RBBB, 1st degree AV block consistent with prev from November, no ST elevation - patient stated he discussed with cardiologists decision to not pursue further caths - no current active chest pain - lipid panel wnl - TTE pending Chronic normocytic Anemia - Hgb 8, baseline of 10. 12/4: 8.7 - pt gets monthly iron infusions - Will continue to monitor with AM CBC - Will consider iron if needed CKD, stage III - Cr. 1.33, at baseline - will continue to monitor CAD - continue ASA, clopidogrel HLD - continue atorvastatin HTN - continue carvedilol - hydralazine prn BPH - continue tamsulosin GERD - continue protonix DM2 - continue home glargine and levemir - sliding scale DVT ppx: lovenox CODE: FULL DISPO: admit to tele for observation Case discussed with Dr. Nicole <Talya Soto - Last Filed: 04/01/18 07:58> Attending Addendum - Attending Addendum Date/Time: 04/01/18912 I personally evaluated the patient and discussed the management with Dr. Soto. I agree with the History, Examination, Assessment and Plan documented above with any addition or exceptions noted below. no recurrence of pain. Vitals stable. Lungs CTA. Echo Pending. If unremarkable ok to d/c home. F/U with Hernandez. <Moshe Nicole - Last Filed: 04/01/18 09:14>
[2018-04-01 06:43] LABS: #Eosinphils 0.5 thou/uL (0.0-0.7); #Lymphocytes 0.8 thou/uL (1.20-3.40); #Monocytes 0.9 thou/uL (0.11-0.59); #Neutrophils 6.3 thou/uL (1.40-6.50); %Basophils 0.1 % (0.0-1.0); %Eosinophils 5.4 % (0.0-10.0); %Lymphocytes 8.9 % (21.0-51.0); %Monocytes 10.8 % (0.0-10.0); %Neutrophils 74.8 % (42.0-75.0); Hemoglobin 8.7 g/dL (14.0-18.0); Mean Corpuscular HGB CONC 33.1 g/dL (32.0-36.0); Mean Corpuscular Hemoglobin 30.5 pg (27.0-31.0); Mean Corpuscular Volume 92.1 fL (78.0-98.0); Mean Platelet Volume 9.3 fL (7.4-10.4); Platelet Count 133 thou/uL (130-400); RBC Distribution Width 13.7 % (11.5-14.5); Red Blood Cell (RBC) Count 2.85 mill/uL (4.70-6.10); White Blood Cell (WBC) Count 8.4 thou/uL (4.8-10.8)
[2018-04-01 06:56] LABS: Anion Gap 11 mmol/L (10-20); BUN (Urea Nitrogen) 21 mg/dL (8.4-25.7); Calc. Creatinine Clearance 52 mL/min (70-130); Calcium 9.4 mg/dL (7.8-10.44); Carbon Dioxide 24 mmol/L (23-31); Cardiac Risk 3.1 (Less than 4.5); Chloride 107 mmol/L (98-107); Cholesterol 89 mg/dl (< 200 Desired); Estimated GFR-MDRD 51; Glucose 137 mg/dL (83-110); HDL Cholesterol 29 mg/dL (>60 Neg Risk); LDL Cholesterol, Calculated 30 mg/dL; Potassium 4.4 mmol/L (3.5-5.1); Sodium 138 mmol/L (136-145); Triglycerides 150 mg/dL (Less than 150)
[2018-04-01] MEDS: Insulin Glargine 24 UNITS in Pre-Filled Syringe 1 EACH SC SCH ×3 (08:18→21:05)
[2018-04-01] MEDS: Ubidecarenone 50 MG CAP PO SCH (08:19)
[2018-04-01] MEDS: Folic Acid 1 MG TAB PO SCH (08:19)
[2018-04-01] MEDS: Clopidogrel Bisulfate 75 MG TAB PO SCH (08:20)
[2018-04-01] MEDS: Enoxaparin Sodium 40 MG/0.4 ML SYRINGE SC SCH (08:21)
[2018-04-01] MEDS ORDERED: Carvedilol 6.25 MG TAB PO SCH (09:00)
[2018-04-01] MEDS ORDERED: LEVEMIR 24 UNIT SC SCH (09:00)
[2018-04-01] MEDS: Prenatal Vitamin 1 TAB PO SCH (09:33)
[2018-04-01] MEDS: Cholestyramine/Aspartame 4 gm Packet PO SCH (09:34)
[2018-04-01] MEDS: Cyanocobalamin (Vitamin B-12) 1,000 MCG TAB PO SCH (09:34)
[2018-04-01] MEDS: Carvedilol 6.25 MG TAB PO SCH ×2 (09:35→20:03)
[2018-04-01] MEDS ORDERED: Atorvastatin Calcium 40 MG TAB PO SCH ×2 (21:00)
[2018-04-01] MEDS ORDERED: Tamsulosin HCl 0.4 MG CAP PO SCH ×2 (21:00)
[2018-04-01] MEDS: ARGININE 500 MG PO SCH (21:33)
--- NOTE | 2018-04-02 06:04 | PDOC.FM ---
- Subjective Subjective: Patient resting comfortably in bed. No overnight events. Patient states he has not had chest pain since the ED. Denies current chest pain, SOB, abdominal pain , fever/chills, NVD. - Objective Vital Signs & Weight: Vital Signs (12 hours) Temp Pulse Resp BP BP Pulse Ox 04/02/18 05:01 97.9 F 77 16 121/59 L 94 L 04/01/18 20:03 125/59 L 04/01/18 19:49 97.4 F L 98 18 136/63 92 L Weight Weight 85.23 kg I&O: 03/31/18 04/01/18 04/02/18 06:59 06:59 06:59 Intake Total 250 880 Output Total 1225 Balance -975 880 Result Diagrams: 04/01/18 06:34 04/01/18 06:34 <Talya Soto - Last Filed: 04/02/18 07:57> - Objective Vital Signs & Weight: Vital Signs (12 hours) Temp Pulse Resp BP Pulse Ox 04/02/18 07:30 97.7 F 81 20 132/60 97 04/02/18 05:01 97.9 F 77 16 121/59 L 94 L Weight Weight 85.23 kg I&O: 04/01/18 04/02/18 04/03/18 06:59 06:59 06:59 Intake Total 250 880 Output Total 1225 Balance -975 880 Result Diagrams: 04/01/18 06:34 04/01/18 06:34 <Moshe Nicole - Last Filed: 04/02/18 09:26> Phys Exam - Physical Examination Constitutional: NAD HEENT: PERRLA, moist MMs, sclera anicteric Neck: full ROM Respiratory: clear to auscultation bilateral Cardiovascular: RRR Gastrointestinal: soft, non-tender, positive bowel sounds Musculoskeletal: no edema, pulses present Neurological: non-focal Psychiatric: normal affect, A&O x 3 Skin: no rash <Talya Soto - Last Filed: 04/02/18 07:57> Dx/Plan (1) Chest pain Code(s): R07.9 - CHEST PAIN, UNSPECIFIED Status: Acute (2) HLD (hyperlipidemia) Code(s): E78.5 - HYPERLIPIDEMIA, UNSPECIFIED Status: Acute (3) BPH (benign prostatic hyperplasia) Code(s): N40.0 - BENIGN PROSTATIC HYPERPLASIA WITHOUT LOWER URINRY TRACT SYMP Status: Chronic (4) CAD (coronary artery disease) Code(s): I25.10 - ATHSCL HEART DISEASE OF [place] CORONARY ARTERY W/O ANG PCTRS Status: Chronic (5) CKD (chronic kidney disease), stage III Code(s): N18.3 - CHRONIC KIDNEY DISEASE, STAGE 3 (MODERATE) Status: Chronic (6) Diabetes type 2, controlled Code(s): E11.9 - TYPE 2 DIABETES MELLITUS WITHOUT COMPLICATIONS Status: Chronic (7) GERD (gastroesophageal reflux disease) Code(s): K21.9 - GASTRO-ESOPHAGEAL REFLUX DISEASE WITHOUT ESOPHAGITIS Status: Chronic (8) Hypertension Code(s): I10 - ESSENTIAL (PRIMARY) HYPERTENSION Status: Chronic - Plan Plan: Unstable angina, ACS rule out - Trop neg - ECG shows RBBB, 1st degree AV block consistent with prev from November, no ST elevation - patient stated he discussed with cardiologists decision to not pursue further caths - no current active chest pain - lipid panel wnl - TTE pending - unable to perform yesterday due to several other patients needing emergent echos Chronic normocytic Anemia - Hgb 8, baseline of 10. 12/4: 8.7 - pt gets monthly iron infusions - Will continue to monitor with AM CBC - Will consider iron if needed CKD, stage III - Cr. 1.33, at baseline - will continue to monitor CAD - continue ASA, clopidogrel HLD - continue atorvastatin HTN - continue carvedilol - hydralazine prn BPH - continue tamsulosin GERD - continue protonix DM2 - continue home glargine and levemir - sliding scale DVT ppx: lovenox CODE: FULL DISPO: can be discharged today after echo performed <Talya Soto - Last Filed: 04/02/18 07:57> Attending Addendum - Attending Addendum Date/Time: 04/02/18921 I personally evaluated the patient and discussed the management with Dr. Soto I agree with the History, Examination, Assessment and Plan documented above with any addition or exceptions noted below. Patients CP has resolved and his TTE has been taken. We will f/u the results and likely discharge pending normal read. Extensive ER precautions given. <Moshe Nicole - Last Filed: 04/02/18 09:26>
[2018-04-02 07:46] VITALS: BP 132/60; TEMP 97.7
[2018-04-02] MEDS: Cholestyramine/Aspartame 4 gm Packet PO SCH (07:57)
[2018-04-02] MEDS: Carvedilol 6.25 MG TAB PO SCH (08:58)
[2018-04-02] MEDS: Clopidogrel Bisulfate 75 MG TAB PO SCH (08:59)
[2018-04-02] MEDS: Cyanocobalamin (Vitamin B-12) 1,000 MCG TAB PO SCH (08:59)
[2018-04-02] MEDS: Enoxaparin Sodium 40 MG/0.4 ML SYRINGE SC SCH (08:59)
[2018-04-02] MEDS: Prenatal Vitamin 1 TAB PO SCH (09:00)
[2018-04-02] MEDS: Folic Acid 1 MG TAB PO SCH (09:00)
[2018-04-02] MEDS: Ubidecarenone 50 MG CAP PO SCH (09:00)
[2018-04-02] MEDS: Insulin Glargine 24 UNITS in Pre-Filled Syringe 1 EACH SC SCH (09:05)
--- NOTE | 2018-04-04 07:55 | DIS ---
DATE OF ADMISSION: 03/31/2018 DATE OF DISCHARGE: 04/02/2018 RESIDENT: Talya Soto MD ADMITTING ATTENDING: Moshe Nicole MD. DISCHARGE ATTENDING: Moshe Niocle MD CONSULTS: None. PROCEDURE PERFORMED: Echocardiogram. PRIMARY DIAGNOSIS: Unstable angina, acute coronary syndrome ruled out. SECONDARY DIAGNOSES: 1. Chronic lymphocytic anemia. 2. Chronic kidney disease, stage 3. 3. Coronary artery disease. 4. Hyperlipidemia. 5. Hypertension. 6. BPH. 7. Gastroesophageal reflux disease. 8. Diabetes type 2. DISCHARGE MEDICATIONS: 1. Tylenol regular strength 650 mg oral every 4 hours as needed. 2. Plavix 75 mg oral daily. 3. Aspirin 81 mg oral daily. 4. Folic acid 1 mg oral daily. 5. CoQ10 200 mg oral daily. 6. Vitamin B12 1200 mcg oral daily. 7. Flomax 0.4 mg oral at bedtime. 8. Fluticasone one spray each nare daily as needed. 9. Vitamin D3 1000 mg oral daily. 10. vitamin 20/iron/folic one tablet oral daily. 11. Arginine 500 mg oral twice daily. 12. Isosorbide mononitrate 120 mg oral daily. 13. Cholestyramine one teaspoon oral daily. 14. Carvedilol 6.25 mg oral twice daily. 15. Protonix 40 mg oral daily. 16. Nitrostat 0.4 mg sublingual every 5 minutes as needed. 17. Levemir 24 units subcutaneous twice daily. 18. Lipitor 40 mg oral at bedtime. 19. Ranexa 1000 mg oral twice daily. HISTORY OF PRESENT ILLNESS/HOSPITAL COURSE: This is an 82-year-old male with past medical history significant for CAD, hypertension, CHF, and type 2 diabetes, who presented to the ED for chest pain that had been occurring in the past 2 days. The patient stated that the pain was intermittent, sharp in left upper chest and radiating underneath the left shoulder and back. The patient began once while walking in [employer] and another time while sitting down. The patient states these episodes lasted from seconds to 5 minutes and then would pause. The patient does have past medical history significant for 39 VATS and 14 stents. The patient sees Dr. Hernandez of Cardiology. The patient remained vitally stable throughout his stay. The patient had EKG showing for severe AV block, right bundle branch block and left axis deviation. Chest x-ray with stable appearance with no acute findings. The patient's troponins were negative x3. The patient had echo performed on day of discharge with results pending. The patient has chronic normocytic anemia. He gets monthly iron infusion. The patient presented with hemoglobin of 8 and was monitored with a.m. CBCs. The patient will follow up outpatient for iron. Other home medications restarted for his chronic conditions. The patient will follow up with Dr. Hernandez outpatient as he already has an appointment set for April. The patient was given ER return precaution. DISPOSITION: Stable. DISCHARGE INSTRUCTIONS: 1. Location: Home with home health. 2. Diet: Heart healthy. 3. Activity: Ad-alejandro. 4. Followup: With PCP within a week and Cardiology in April. Job ID: [id number]
== END 2018-04-02 11:33 | disposition home health service (06) ==
LOC: ERS 13:17 → ERHOLD 14:58 → 2SW 20:51
PROVIDERS: ADMIT Family Medicine; ATTEND Family Medicine
DX: I25.110 Atherosclerotic heart disease of native coronary artery with unstable angina pectoris (principal); I13.0 Hypertensive heart and chronic kidney disease with heart failure and stage 1 through stage 4 chronic kidney disease, or unspecified chronic kidney disease; E11.22 Type 2 diabetes mellitus with diabetic chronic kidney disease; N18.3 Chronic kidney disease, stage 3 (moderate); I50.9 Heart failure, unspecified; N40.0 Benign prostatic hyperplasia without lower urinary tract symptoms; F17.210 Nicotine dependence, cigarettes, uncomplicated; E78.5 Hyperlipidemia, unspecified; K21.9 Gastro-esophageal reflux disease without esophagitis; D64.9 Anemia, unspecified; I44.30 Unspecified atrioventricular block; I45.10 Unspecified right bundle-branch block; Z79.02 Long term (current) use of antithrombotics/antiplatelets; Z79.82 Long term (current) use of aspirin; Z79.4 Long term (current) use of insulin; Z79.899 Other long term (current) drug therapy; Z91.018 Allergy to other foods; Z95.5 Presence of coronary angioplasty implant and graft
CPT/HCPCS: 71045; 80048; 80053; 80061; 82550; 82553; 82962 ×3; 83880; 84484 ×2; 85025 ×2; 93005; 93306; 94760 ×3; 96372 ×2; 96374; 99285; G0378 ×2; 36415; 36416; J1650; J2405

== ENCOUNTER 2018-04-18 14:13 | Day surgery (SDC) | payer MEDICARE ==
[2018-04-18] MEDS ORDERED: Acetaminophen 500 MG TAB PO SCH (15:00)
[2018-04-18] MEDS ORDERED: diphenhydrAMINE 25 MG CAP PO SCH (15:00)
[2018-04-19 04:35] VITALS: BP 149/67; TEMP 98.1
[2018-04-19 07:01] LABS: #Eosinphils 0.3 thou/uL (0.0-0.7); #Lymphocytes 0.7 thou/uL (1.20-3.40); #Monocytes 0.7 thou/uL (0.11-0.59); #Neutrophils 4.2 thou/uL (1.40-6.50); %Basophils 0.6 % (0.0-1.0); %Eosinophils 5.6 % (0.0-10.0); %Lymphocytes 12.1 % (21.0-51.0); %Monocytes 11.1 % (0.0-10.0); %Neutrophils 70.6 % (42.0-75.0); Hemoglobin 8.9 g/dL (14.0-18.0); Mean Corpuscular HGB CONC 31.1 g/dL (32.0-36.0); Mean Corpuscular Hemoglobin 26.6 pg (27.0-31.0); Mean Corpuscular Volume 85.6 fL (78.0-98.0); Platelet Count 145 thou/uL (130-400); RBC Distribution Width 15.1 % (11.5-14.5); Red Blood Cell (RBC) Count 3.36 mill/uL (4.70-6.10); White Blood Cell (WBC) Count 5.9 thou/uL (4.8-10.8)
== END 2018-04-19 08:40 | disposition home or self-care (01) ==
LOC: ONC/OP 14:13 → ONC 14:13 → ONC/OP 04-19 08:40
PROVIDERS: ATTEND Nurse Practitioner Acute Care
PROC: 30233N1 Transfusion of Nonautologous Red Blood Cells into Peripheral Vein, Percutaneous Approach (ICD-10-PCS; principal; 2018-04-18)
DX: D64.9 Anemia, unspecified (principal); D69.6 Thrombocytopenia, unspecified
CPT/HCPCS: 36415; 36430; 85025; 86850; 86900; 86901; P9016

== ENCOUNTER 2018-07-27 09:46 | Inpatient (IN) | payer MEDICARE ==
[2018-07-27] MEDS ORDERED: Nitroglycerin 2% Ointment 1 INCH/1 GM Packet ONE (10:27)
[2018-07-27] MEDS ORDERED: Aspirin Chewable 81 MG TAB ONE (10:27)
--- NOTE | 2018-07-27 10:39 | RAD ---
CHEST 1 VIEW: Date: 07/27/18 HISTORY: Chest pain. COMPARISON: 03/31/18. FINDINGS: Heart size is borderline for AP technique. Lungs are clear of infiltrates. No signs of failure. Coron suleman calcifications are present. IMPRESSION: Borderline heart size. No acute process. POS: [facility]
[2018-07-27 10:45] LABS: #Eosinphils 0.3 thou/uL (0.0-0.7); #Lymphocytes 0.7 thou/uL (1.20-3.40); #Monocytes 0.5 thou/uL (0.11-0.59); #Neutrophils 3.9 thou/uL (1.40-6.50); %Basophils 0.3 % (0.0-1.0); %Eosinophils 4.7 % (0.0-10.0); %Lymphocytes 12.6 % (21.0-51.0); %Monocytes 9.1 % (0.0-10.0); %Neutrophils 73.3 % (42.0-75.0); Hemoglobin 9.4 g/dL (14.0-18.0); Mean Corpuscular HGB CONC 33.5 g/dL (32.0-36.0); Mean Corpuscular Hemoglobin 31.3 pg (27.0-31.0); Mean Corpuscular Volume 93.3 fL (78.0-98.0); Mean Platelet Volume 9.6 fL (7.4-10.4); Platelet Count 121 thou/uL (130-400); RBC Distribution Width 13.9 % (11.5-14.5); Red Blood Cell (RBC) Count 2.99 mill/uL (4.70-6.10); White Blood Cell (WBC) Count 5.4 thou/uL (4.8-10.8)
[2018-07-27 11:08] LABS: ALT (SGPT) 14 U/L (8-55); AST (SGOT) 19 U/L (5-34); Albumin 4.2 g/dL (3.4-4.8); Alkaline Phosphatase 70 U/L (40-150); Anion Gap 13 mmol/L (10-20); BUN (Urea Nitrogen) 25 mg/dL (8.4-25.7); Bilirubin, Total 0.4 mg/dL (0.2-1.2); Calc. Creatinine Clearance 0 mL/min (70-130); Calcium 9.2 mg/dL (7.8-10.44); Carbon Dioxide 23 mmol/L (23-31); Chloride 107 mmol/L (98-107); Estimated GFR-MDRD 53; Globulin 2.4 g/dL (2.4-3.5); Glucose 160 mg/dL (83-110); Lipase 25 U/L (8-78); Potassium 4.2 mmol/L (3.5-5.1); Protein, Total 6.6 g/dL (5.8-8.1); Sodium 139 mmol/L (136-145)
--- NOTE | 2018-07-27 11:54 | PDOC.FPRHP ---
- History of Present Illness Chief Complaint: Chest pain History of Present Illness: This is a 83 yo male with a pmh of CAD, HTN, IDDM, HF former smoker, who presents to the ed with a cc of chest pain. He states the pain has been worsening in the last week. He describes the pain as a severe crushing pain. He states the pain was controlled with nitro and tylenol at one time however last night he started having more severe pain that was not resolved with nitro. He reports SOB, diaphoriesis, worsening exercise intolerance. Pt had a recent GI bleed and has been receiving iron transfusions. He has been having black stool. 1 month ago he had transfusion ED Course: Nitro paste aspirin 325 mg - Allergies/Adverse Reactions Allergies Allergy/AdvReac Type Severity Reaction Status Date / Time No Known Drug Allergies Allergy Verified 03/31/18 21:54 watermelon Allergy Verified 03/31/18 21:54 - Home Medications Medication Instructions Recorded Confirmed Type Aspirin Chewable [Aspirin Chewable 81 mg PO DAILY 01/28/13 07/27/18 History Tablet] Clopidogrel Bisulfate [Plavix] 75 mg PO DAILY 01/28/13 07/27/18 History Folic Acid [Folvite] 1 mg PO DAILY 08/27/13 07/27/18 History Ubidecarenone [Co Q-10] 200 mg PO DAILY 08/27/13 07/27/18 History Cyanocobalamin (Vitamin B-12) 1,200 mcg PO DAILY 02/01/15 07/27/18 History [Vitamin B12] Cholecalciferol (Vitamin D3) 1,000 unit PO DAILY 04/16/17 07/27/18 History [Vitamin D3] Fluticasone Propionate [Flonase 1 spray EA NARE DAILY PRN 04/16/17 07/27/18 History Allergy Relief] Tamsulosin HCl [Flomax] 0.4 mg PO HS 04/16/17 07/27/18 History Arginine [L-Arginine] 500 mg PO BID 04/17/17 07/27/18 History Cholestyramine (With Sugar) 1 teaspoon PO DAILY 04/17/17 07/27/18 History [Cholestyramine Packet] Isosorbide Mononitrate [Isosorbide 120 mg PO DAILY 04/17/17 07/27/18 History Mononitrate ER] Vit 28/Iron Fum/Folic 1 tablet PO DAILY 04/17/17 07/27/18 History [Theranatal Core Nutrition] Carvedilol 12.5 mg PO BID 09/14/17 07/27/18 History Pantoprazole [Protonix] 40 mg PO DAILY #30 tab 09/17/17 07/27/18 Rx Levemir Flexpen [Levemir FlexPen] 24 units SC BID 10/17/17 07/27/18 History Nitroglycerin [Nitrostat] 0.4 mg SL Q5MIN PRN 10/17/17 07/27/18 History Atorvastatin Calcium [Lipitor] 40 mg PO HS 30 Days tab 12/18/17 07/27/18 Rx Ranolazine [Ranexa] 1,000 mg PO BID 03/31/18 07/27/18 History Acetaminophen [Tylenol Regular 650 mg PO Q4H PRN tab 04/01/18 07/27/18 Rx Strength] - History PMHx: HFrEF, IDDM, CAD s/p 17 stents, upper GI bleed, CKD III, BPH, GERD, HTN PSHx: Cholecystectomy, tonsils and adenoidectomy, 17 cardiac stents, cardiac ablation FHx: Mother and father had heart disease Social: Former smoker 3-4 ppd for 30 years, rare alcohol, no drugs - Review of Systems General: denies: fever/chills, weight/appetite/sleep changes Eyes: denies: eye pain, vision changes ENT: denies: nasal congestion, rhinorrhea Respiratory: reports: shortness of breath, exercise intolerance. denies: cough Cardiovascular: reports: chest pain (With radiation into his back and left shoulder). denies: palpitation, edema Gastrointestinal: reports: GI bleeding (Dark stools). denies: nausea, vomiting , diarrhea Genitourinary: denies: incontinence, dysuria Skin: denies: rashes, lesions Musculoskeletal: denies: pain, tenderness Neurological: denies: numbness, syncope Psychological: reports: depression (Some thoughts that these episodes may be your last). denies: anxiety - Vital signs BP: 132/75 HR: 72 RR: 16 Tmax: 97.7 Pox: 98% on ra Wt: 85 kg - Physical Exam Constitutional: NAD, awake, alert and oriented, well developed HEENT: normocephalic and atraumatic, EOMI, MMM Neck: supple, trachea midline, no JVD Chest: no-tender to palpation, no lesions Heart: RRR, normal S1/S2, no murmurs/rubs/gallops Lungs: CTAB, no respiratory distress, no wheezing Abdomen: soft, non-tender, bowel sounds present, no masses/distention Musculoskeletal: normal structure, normal tone, ROM grossly normal Neurological: no focal deficit, CN II-XII intact Skin: no rash/lesions, good turgor Heme/Lymphatic: no unusual bruising or bleeding, no purpura Psychiatric: normal mood and affect, good judgment and insight, intact recent and remote memory FMR H&P: Results - Labs Result Diagrams: 07/27/18 13:21 07/27/18 10:32 Lab results: WBC 5.4 thou/uL (4.8-10.8) 07/27/18 10:32 Hgb 9.4 g/dL (14.0-18.0) L 07/27/18 10:32 Hct 27.9 % (42.0-52.0) L 07/27/18 10:32 MCV 93.3 fL (78.0-98.0) 07/27/18 10:32 Plt Count 121 thou/uL (130-400) L 07/27/18 10:32 Neutrophils % 73.3 % (42.0-75.0) 07/27/18 10:32 Sodium 139 mmol/L (136-145) 07/27/18 10:32 Potassium 4.2 mmol/L (3.5-5.1) 07/27/18 10:32 Chloride 107 mmol/L (98-107) 07/27/18 10:32 Carbon Dioxide 23 mmol/L (23-31) 07/27/18 10:32 BUN 25 mg/dL (8.4-25.7) 07/27/18 10:32 Creatinine 1.29 mg/dL (0.7-1.3) 07/27/18 10:32 Glucose 160 mg/dL (83-110) H 07/27/18 10:32 Calcium 9.2 mg/dL (7.8-10.44) 07/27/18 10:32 Total Bilirubin 0.4 mg/dL (0.2-1.2) 07/27/18 10:32 AST 19 U/L (5-34) 07/27/18 10:32 ALT 14 U/L (8-55) 07/27/18 10:32 Alkaline Phosphatase 70 U/L (40-150) 07/27/18 10:32 Serum Total Protein 6.6 g/dL (5.8-8.1) 07/27/18 10:32 Albumin 4.2 g/dL (3.4-4.8) 07/27/18 10:32 Lipase 25 U/L (8-78) 07/27/18 10:32 - EKG Interpretation EKG: Sinus rhythm, 1st degree AV block, RBBB, no ST elevation or depression 75bpm, QT/QTc 462/515 - Radiology Interpretation Chest x-ray Status: image reviewed by me, report reviewed by me (borderline heart size, no acute process) FMR H&P: A/P - Problem List (1) Unstable angina Current Visit: Yes Status: Acute (2) Diabetes mellitus, type 2 Current Visit: Yes Status: Acute (3) HLD (hyperlipidemia) Current Visit: No Status: Acute Code(s): E78.5 - HYPERLIPIDEMIA, UNSPECIFIED (4) BPH (benign prostatic hyperplasia) Current Visit: No Status: Chronic Code(s): N40.0 - BENIGN PROSTATIC HYPERPLASIA WITHOUT LOWER URINRY TRACT SYMP (5) CKD (chronic kidney disease), stage III Current Visit: No Status: Chronic Code(s): N18.3 - CHRONIC KIDNEY DISEASE, STAGE 3 (MODERATE) (6) Hypertension Current Visit: No Status: Chronic Code(s): I10 - ESSENTIAL (PRIMARY) HYPERTENSION - Plan This is a 83 yo male with a pmh of CAD, HTN, IDDM, HF former smoker Unstable angina -Similar pain to previous episodes of ACS -Troponin negative x3 -EKG shows no acute signs of ischemia -Heparin gtt, nitro, and morphine for treatment -Hx of GI bleed with decrease in Hgb since admission, holding heparin -Consult cardiolgy -Continue home meds CAD s/p stents -Continue home meds HFrEF -Continue home meds IDDM -Continue home lantus -Mod SSI, ACHS accuchecks GI Bleed -Continues to have dark stools -Previously worked up with no source per EGD -Consider GI consult in outpt if Hgb is stable -Consider transfusion if pt remains symptomatic due to CAD -Trend H/H, 2U PRBCs on hold Code: full Prophylaxis: SCDs Family: none at bedside PCP: Gabriella Indirect Sales Representative: Dr. Hernandez Disposition: home in 1-2 days FMR H&P: Upper Level - Pertinent history 83 yo M w/ PMH of CAD s/p 17 stents and numerous cardiac catherterizations ( primary cuff setter lockstitch Dr Hernandez), HTN, HLD, CHF, IDDM, known GI blood loss anemia with prior negative EGD presents for worsening CP that started approx 1 week ago. Pt reports the pain is crushing and is relieved nitro and aspirin. It has been occurring at rest and is similar to previous cardiac events. He denies assocaited NV, but does report some diaphoresis. He is currently cp free after nitro paste and aspirin. Regarding his GI bleeding pt reports he has been trending his Hgb OP and will get frequent iron infusions although last month he received a blood transfusion. He does report that low Hgb will sometimes worsen his anginal symptoms. Pertinent ROS listed above, see internet marketing director note for full ROS - Pertinent findings PE: Gen: NAD HEENT: NCAT, EOMI CV: RRR No MRG Respiratory: CTA b/l, no wheezing rales or rhonchi Abd: soft NTND, BSX4 Extremitites: No clubbing cyanosis or edema Neuro: No focal deficit - Plan Date/Time: 07/27/18 1150 I, Yomi Danielle, , have evaluated this patient and agree with findings/ plan as outlined by internet marketing director resident. Pertinent changes/additions are listed here. 1) Unstable angina: pt had no ekg changes from prior and negative troponins, but given description and extensive cardiac history will treat as such - rx heparin and nitro paste along with aspirin and consult cardiology - in the time since he received Heparin in ED to now his Hgb has dropped from 9.4-->8.8, as such will hold heparin and await cardiology recs - cont nitro paste to keep pt cp free, consider nitro drip if pain not responsive to paste and pts pressures will allow - cont home medications 2) HFrEF: - cont home medications - cardiology consulted appreciate recommendations 3) IDDM: - lantus 24U BID - accuchecks ACHS - Mod SSI 4) CAD: home meds, cardiology consulted for worsening anginal symptoms and significant risk factors 5) GI bleed: - pt hgb has dropped since inititation of heparin for unstable angina, as such will hold and await cardiology recommendations - type and crossmatch 2U PRBCs in event hgb continues to drop - consider transfusion at level > 7 given anginal symptoms in context of anemia - continue to trend - pt reports previous EGD that was normal, denies recent colonoscopy - consider GI consult after resolution of active CP 6) Acute blood loss anemia: pt continues to have dark stools and this has been previously worked up with negative EGD - will trend h/h and transfuse 2U prbcs if hgb <7; will consider transfusion if cp returns and Hgb continues to trend down PPX: Heparin, held GI: Protonix Code status: full code PCP: Gabriella Addendum - Attending - Attending Attestation Date/Time: 07/27/18 9205 I personally evaluated the patient and discussed the management with Dr. Danielle I agree with the History, Examination, Assessment and Plan documented above with any addition or exceptions noted below.
[2018-07-27] MEDS ORDERED: Heparin 10,000 UNITS/ 10 ML VIAL SLOW IVP SCH (13:00)
[2018-07-27] MEDS ORDERED: Heparin 25,000 units/D5W 500 ML IVPB SCH (13:00)
[2018-07-27] MEDS ORDERED: Nitroglycerin 0.4 MG TAB (25 Tab Bottle) SL PRN (13:28)
[2018-07-27 13:37] LABS: Hemoglobin 8.8 g/dL (14.0-18.0); Platelet Count 113 thou/uL (130-400)
[2018-07-27] MEDS ORDERED: Fluticasone Propionate Nasal Spray 16 gm Bottle NASAL PRN (14:00)
[2018-07-27 14:03] LABS: Troponin I Less than 0.010 ng/mL (< 0.028)
[2018-07-27 14:11] VITALS: BMI 29.7
[2018-07-27] MEDS ORDERED: HumaLOG 300 UNITS/3 ML VIAL SC PRN (14:50)
[2018-07-27] MEDS ORDERED: Dextrose 5% in Water 1,000 ML IV PRN (14:50)
[2018-07-27] MEDS ORDERED: Dextrose 50% Abboject 50 ML SYRINGE SLOW IVP PRN (14:50)
--- NOTE | 2018-07-27 15:12 | CON ---
DATE OF CONSULTATION: 07/27/2018 REASON FOR CONSULTATION: Chest pain. PRIMARY POURED WALL FOREMAN: Dr. Leena Hernandez. HISTORY OF PRESENT ILLNESS: Mr. Townsend is a very pleasant 83-year-old white gentleman, who comes to the hospital for chest pain. He had five episodes yesterday of just a pressure on the left side of his chest. He decided to come in for further evaluation. He has had several different heart catheterization in the past, actually 39 different times. The last one was in [address] Hernandez and at that point, his coronaries were stable. He has had several different stents placed throughout his life as well, all to the RCA and left circumflex apparently. He has been getting IV iron infusions for low hemoglobin and iron deficiency anemia and actually has needed to have blood transfusions as recent as about a month ago. He was scheduled to have a repeat transfusion [facility]. He has been trickling down and his hemoglobin went from 10.4 down to 8.8 within about almost 2 months. Currently, he is chest pain free. His troponins have been negative. PAST MEDICAL HISTORY: 1. Coronary artery disease, status post multiple stents to the RCA and left circumflex. 2. Multiple heart catheterizations, 39 in total apparently. 3. GI blood loss with chronic anemia of iron deficiency, on blood transfusions periodically as well as IV iron infusions. 4. Hypertension. 5. GERD. 6. Chronic kidney disease. 7. Type 2 diabetes. 8. BPH. 9. Hyperlipidemia. FAMILY HISTORY: Noncontributory. SOCIAL HISTORY: No alcohol, tobacco, or drugs. ALLERGIES: NO KNOWN DRUG ALLERGIES. OUTPATIENT MEDICATIONS: Include; 1. Cholestyramine. 2. Levemir. 3. Vitamin B12. 4. vitamins. 5. Nitroglycerin sublingual. 6. Vitamin D3. 7. L-arginine. 8. Tylenol p.r.n. 9. CoQ10. 10. Imdur 120 mg a day. 11. Fluticasone. 12. Aspirin 81 a day. 13. Tamsulosin 0.4 at bedtime. 14. Ranexa 1000 b.i.d. 15. Carvedilol 12.5 b.i.d. 16. Atorvastatin 40 mg at bedtime. 17. Pantoprazole 40 mg a day. 18. Folic acid. 19. Plavix 75 mg a day. ALLERGIES: [place]. REVIEW OF SYSTEMS: A 12-point review of systems was done and was negative unless stated in the history of present illness. PHYSICAL EXAMINATION: VITAL SIGNS: Temperature 97.7, pulse 82, respiratory rate 18, saturating 98% on room air, and blood pressure 138/64. GENERAL: Awake, alert, and oriented x3. No distress. HEENT: Normocephalic atraumatic. NECK: Supple. LUNGS: Clear. CARDIOVASCULAR: S1 and S2. No S3 or S4. No murmurs. ABDOMEN: Soft. Positive bowel sounds. EXTREMITIES: No edema. SKIN: Warm and dry. LABORATORY DATA: Laboratory work was reviewed. Hemoglobin 9.4, down to 8.8 just 3 hours apart. Coags APTT was little bit high. Glucose was 169. CMP otherwise unremarkable. Troponin is undetectable x2. Most recent echocardiogram was done on March 2018. ASSESSMENT AND PLAN: 1. Chest pain. Multiple cardiac catheterization in the past. Last one in 2014 showing stable disease. He has negative enzymes and pain was atypical. We will ask a primary team to work up anemia as he is currently on Plavix, but currently there is no stent recently, so the Plavix needs to be stopped, this may be stopped at any time. However, if we go in and put in a stent, stopping Plavix could mean provoking a bigger heart attack. At this time, if his troponins remain negative, I do not think he is a candidate for any further risk stratification for the time being. 2. We will get an echocardiogram to make sure there is no big change from the most recent one he had back in March. 3. Further recommendations per Dr. Hernandez, his primary game moderator. No plan for catheterization at this time. Job ID: [id number]
[2018-07-27 17:16] LABS: Troponin I Less than 0.010 ng/mL (< 0.028)
[2018-07-27] MEDS: Nitroglycerin 0.4 MG TAB (25 Tab Bottle) PO PRN ×3 (19:51→20:02)
[2018-07-27] MEDS: Acetaminophen 325 MG TAB PO PRN (19:53)
[2018-07-27] MEDS: Carvedilol 6.25 MG TAB PO SCH (20:20)
[2018-07-27] MEDS: Tamsulosin HCl 0.4 MG CAP PO SCH (20:21)
[2018-07-27] MEDS: Atorvastatin Calcium 40 MG TAB PO SCH (20:21)
[2018-07-27] MEDS: ARGININE 500 MG PO SCH (20:22)
[2018-07-27] MEDS: Insulin Glargine 24 UNITS in Pre-Filled Syringe 1 EACH SC SCH (20:35)
[2018-07-27] MEDS ORDERED: LEVEMIR 24 UNIT SC SCH (21:00)
[2018-07-27 22:15] LABS: Mean Corpuscular HGB CONC 33.5 g/dL (32.0-36.0); Mean Corpuscular Hemoglobin 31.7 pg (27.0-31.0); Mean Corpuscular Volume 94.5 fL (78.0-98.0); Mean Platelet Volume 8.9 fL (7.4-10.4); Platelet Count 92 thou/uL (130-400); Red Blood Cell (RBC) Count 2.52 mill/uL (4.70-6.10); White Blood Cell (WBC) Count 5.6 thou/uL (4.8-10.8)
[2018-07-28] MEDS: Nitroglycerin 0.4 MG TAB (25 Tab Bottle) PO PRN ×6 (02:26→21:01)
[2018-07-28] MEDS: Acetaminophen 325 MG TAB PO PRN ×3 (02:28→20:59)
[2018-07-28] MEDS: Cholestyramine/Aspartame 4 gm Packet PO SCH (05:52)
--- NOTE | 2018-07-28 06:30 | PDOC.FM ---
- Subjective Subjective: pt resting comfortably in bed, reports continued episodes of chest pain relieved with nitro, sob as well - Objective Vital Signs & Weight: Vital Signs (12 hours) Temp Pulse Resp BP BP Pulse Ox 07/28/18 04:00 97.5 F L 72 20 129/59 L 99 07/28/18 02:15 94 L 07/27/18 20:20 152/70 H 07/27/18 20:00 97.4 F L 75 18 163/67 H 96 Weight Weight 85.956 kg Result Diagrams: 07/28/18 06:43 07/28/18 06:43 Phys Exam - Physical Examination Constitutional: NAD HEENT: moist MMs Neck: no JVD Respiratory: clear to auscultation bilateral Cardiovascular: RRR, no significant murmur Gastrointestinal: soft, positive bowel sounds Musculoskeletal: no edema, pulses present Neurological: moves all 4 limbs Lymphatic: no nodes Psychiatric: normal affect Skin: no rash Dx/Plan (1) Diabetes mellitus, type 2 Status: Acute (2) Unstable angina Status: Acute (3) GI bleed Code(s): K92.2 - GASTROINTESTINAL HEMORRHAGE, UNSPECIFIED Status: Acute (4) HLD (hyperlipidemia) Code(s): E78.5 - HYPERLIPIDEMIA, UNSPECIFIED Status: Acute - Plan Plan: Unstable angina -Similar pain to previous episodes of ACS, Troponin negative x3, EKG shows no acute signs of ischemia -Heparin gtt, nitro, and morphine for treatment -Hx of GI bleed with decrease in Hgb since admission, holding heparin -Consult cardiolgy, Dr. Tomlinson, appreciate recs -Continue home meds CAD s/p stents -Continue home meds HFrEF -Continue home meds - Echo pending IDDM -Continue home lantus -Mod SSI, ACHS accuchecks Iron deficiency anemia -Continues to have dark stools, previously worked up with no source of bleeding -receives monthly iron infusion, followed by hem/onc- FILTER ASSEMBLER Carmen -iron transfusion today -Consider blood transfusion if pt remains symptomatic due to CAD -Trend H/H, 2U PRBCs on hold Code: full Prophylaxis: SCDs PCP: Gabriella Disposition: home in 1-2 days
[2018-07-28 07:06] LABS: Anion Gap 12 mmol/L (10-20); BUN (Urea Nitrogen) 23 mg/dL (8.4-25.7); Calc. Creatinine Clearance 52 mL/min (70-130); Carbon Dioxide 24 mmol/L (23-31); Chloride 109 mmol/L (98-107); Estimated GFR-MDRD 52; Glucose 149 mg/dL (83-110); Potassium 4.2 mmol/L (3.5-5.1); Sodium 141 mmol/L (136-145)
[2018-07-28 07:10] LABS: #Eosinphils 0.2 thou/uL (0.0-0.7); #Lymphocytes 0.6 thou/uL (1.20-3.40); #Monocytes 0.6 thou/uL (0.11-0.59); #Neutrophils 3.6 thou/uL (1.40-6.50); %Basophils 0.3 % (0.0-1.0); %Eosinophils 4.6 % (0.0-10.0); %Lymphocytes 12.7 % (21.0-51.0); %Monocytes 11.5 % (0.0-10.0); %Neutrophils 70.8 % (42.0-75.0); Hemoglobin 8.6 g/dL (14.0-18.0); Mean Corpuscular HGB CONC 31.6 g/dL (32.0-36.0); Mean Corpuscular Hemoglobin 30.2 pg (27.0-31.0); Mean Corpuscular Volume 95.6 fL (78.0-98.0); Mean Platelet Volume 9.8 fL (7.4-10.4); Platelet Count 109 thou/uL (130-400); RBC Distribution Width 14.1 % (11.5-14.5); Red Blood Cell (RBC) Count 2.84 mill/uL (4.70-6.10); White Blood Cell (WBC) Count 5.3 thou/uL (4.8-10.8)
[2018-07-28] MEDS: Prenatal Vitamin 1 TAB PO SCH (08:27)
[2018-07-28] MEDS: Aspirin Chewable 81 MG TAB PO SCH (08:27)
[2018-07-28] MEDS: Folic Acid 1 MG TAB PO SCH (08:27)
[2018-07-28] MEDS: Cyanocobalamin (Vitamin B-12) 1,000 MCG TAB PO SCH (08:27)
[2018-07-28] MEDS: Ubidecarenone 50 MG CAP PO SCH (08:27)
[2018-07-28] MEDS: Carvedilol 6.25 MG TAB PO SCH ×2 (08:28→20:31)
[2018-07-28] MEDS: ARGININE 500 MG PO SCH ×2 (08:29→20:32)
[2018-07-28] MEDS: Insulin Glargine 24 UNITS in Pre-Filled Syringe 1 EACH SC SCH ×2 (08:35→20:43)
--- NOTE | 2018-07-28 08:49 | PDOC.CTH ---
Cardiology Progress Note - Subjective The pt seen and examined. No overnight events. No cardiac complaints. He had CP which radiated to back. No ECG changed. He denied other cardiac complains during the episode. - Objective Vital Signs Temp Pulse Resp BP Pulse Ox 07/28/18 04:00 97.5 F L 72 20 129/59 L 99 07/28/18 02:15 94 L Weight 189 lb 8 oz - Physical Examination General/Neuro: alert & oriented x3 Neck: no JVD present Lungs: CTA Heart: RRR Abdomen: soft Extremities: other: (No edema) - Telemetry Telemetry Rhythm: SR - Labs Result Diagrams: 07/28/18 06:43 07/28/18 06:43 Troponin/CKMB Troponin I Less than 0.010 ng/mL (< 0.028) 07/27/18 16:40 - Assessment/Plan 1. Atypical CP - negative trop, no ECG changed; On Imdur and Ranexa 2. HTN - overall, stable with current medication 3. CAD with multiple cath and stent - On Bblokcer, Statin, and ASA. 4. DN type 2 - managed by PCP 5. Anemia - improving 6. CKD stage 3 - stable MAR reviewed Pt. seen and eval. by me. I agree with the A/P by the DRILL SETUP OPERATOR. No further chest pain since this AM. Likely due to his anemia. I will re-evaluate in AM Review of Systems - Review of Systems Constitutional: reports: no symptoms reported EENTM: reports: no symptoms reported Respiratory: reports: no symptoms reported Cardiac (ROS): reports: see HPI ABD/GI: reports: no symptoms reported : reports: no symptoms reported Musculoskeletal: reports: no symptoms reported
[2018-07-28] MEDS ORDERED: Famotidine 20 MG TAB PO SCH (09:00)
[2018-07-28] MEDS ORDERED: Cholestyramine/Aspartame 4 gm Packet PO SCH (10:00)
--- NOTE | 2018-07-28 12:28 | PRG ---
DATE OF SERVICE: 07/28/2018 SUBJECTIVE: Mr. Townsend is a very pleasant 83-year-old man, who was admitted with a history of anemia and possibly a slow GI bleed. His hemoglobin seems to, however, between 8 and 10, and he is followed by Hem/Onc. He is still symptomatic and feeling very fatigued even though his hemoglobin is now 8.8. It is probably reasonable to give him a unit of blood and keep him around 10 since he is so symptomatic. We will check with Hem/Onc to see if he has had a GI workup for his what appears to be chronic iron deficiency anemia. Job ID: [id number]
[2018-07-28 16:15] LABS: Iron 26 ug/dL (65-175); Iron Binding Capacity, Total 393 mcg/dL (261-462)
--- NOTE | 2018-07-28 18:14 | CON ---
DATE OF CONSULTATION: REASON FOR CONSULT: Iron deficiency anemia. HISTORY OF PRESENT ILLNESS: Mr. Townsend is a pleasant 83-year-old gentleman, well known to our service, who has a history of iron deficiency anemia from occult GI blood loss, likely from anticoagulation. He presented to the emergency room yesterday with complaints of chest pain. He has a significant coronary history with stents. He is on Plavix and aspirin. On arrival, his hemoglobin was 9.4. It is trended downward and is currently 8.6, ferritin is 67. The patient generally receives a dose of IV Feraheme monthly in our office. His last hemoglobin in early June was 9.4. He has had a negative GI workup in 2018. His last transfusion was in March. He complains of intermittent chest pain. Denies any shortness of breath or weakness. PAST MEDICAL HISTORY: 1. Iron deficiency anemia. 2. Chronic kidney disease, 3. 3. Esophageal reflux. 4. High cholesterol. 5. Coronary artery disease. 6. Diabetes mellitus, type 2. 7. Hypertension. 8. History of HI. 9. History of CVA. 10. Arthritis. 11. History of hemorrhoids. PAST SURGICAL HISTORY: 1. Coronary artery stents. 2. Cataract removal. 3. Hemorrhoidectomy. 4. Knee surgery. 5. Cholecystectomy. ALLERGIES: NO KNOWN DRUG ALLERGIES. HOME MEDICATIONS: 1. Aspirin 81 mg daily. 2. Coreg 6.25 mg b.i.d. 3. Cholestyramine daily. 4. Plavix 75 mg daily. 5. CoQ10 daily. 6. Folic acid daily. 7. Isosorbide 120 mg daily. 8. Levemir daily. 9. Nitroglycerin sublingual p.r.n. 10. Protonix 40 mg daily. 11. vitamin daily. 12. Ranolazine 1000 mg b.i.d. 13. Simvastatin daily. 14. Flomax daily. 15. Vitamin B daily. FAMILY HISTORY: Noncontributory. SOCIAL HISTORY: Single, two children. Lives alone. No alcohol, tobacco, or illicit drug use. REVIEW OF SYSTEMS: A 10-point review of systems is negative except for noted in HPI. PHYSICAL EXAMINATION: VITAL SIGNS: Temperature is 96.7, pulse is 74, respiratory rate 17, BP is 147/ 67, and he is 96% on 2 L. GENERAL: Well-developed, well-nourished male, in no acute distress. HEENT: Normocephalic, atraumatic. Pupils are equal and reactive to light. NECK: Supple. CV: Regular rate and rhythm. LUNGS: Clear. ABDOMEN: Obese, nontender. Bowel sounds are positive. EXTREMITIES: No clubbing, cyanosis, or edema. SKIN: No rash. HEMATOLOGICAL: No petechiae or purpura. NEUROLOGICAL: Nonfocal. PSYCH: Alert, oriented, and appropriate. PERTINENT LABS AND X-RAYS: Current WBCs 5.3, hemoglobin 8.6, hematocrit 27.2, and platelet count 109,000. He has 71% neutrophils, 12% lymphocytes, and 11% monocytes. Sodium 141, potassium 4.2, chloride 109, CO2 is 24, BUN is 23, creatinine 1.31, calcium is 9, ferritin is 67, total bilirubin is 0.4, AST is 19, ALT is 14, and alkaline phosphatase is 70. Serum total protein is 6.6, albumin 4.2, globulin 2.4. ASSESSMENT: 1. Chronic iron deficiency anemia, likely secondary to occult gastrointestinal bleed. 2. Chest pain with history of stents, on aspirin and Plavix. 3. Chronic kidney disease, 3. DISCUSSION: The patient was due for IV iron this week. We will give him a dose of Venofer to increase his ferritin to greater than 100. He has a negative GI workup that was done less than a year ago. I do feel like he has occult GI bleed from Plavix and aspirin. Dr. Hernandez seen the patient and will decide if he needs to continue, if so, we will continue following him in the outpatient setting and given him IV iron as needed. Thank you for the consult. Job ID: [id number] [facility]
[2018-07-28] MEDS: Tamsulosin HCl 0.4 MG CAP PO SCH (20:32)
[2018-07-28] MEDS: Atorvastatin Calcium 40 MG TAB PO SCH (20:37)
[2018-07-28] MEDS: Morphine 2 MG/ML SYRINGE SLOW IVP PRN (21:09)
[2018-07-29 04:18] LABS: #Eosinphils 0.3 thou/uL (0.0-0.7); #Lymphocytes 0.9 thou/uL (1.20-3.40); #Monocytes 0.7 thou/uL (0.11-0.59); #Neutrophils 3.6 thou/uL (1.40-6.50); %Lymphocytes 16.5 % (21.0-51.0); %Monocytes 12.7 % (0.0-10.0); %Neutrophils 64.8 % (42.0-75.0); Hemoglobin 11.2 g/dL (14.0-18.0); Mean Corpuscular HGB CONC 34.1 g/dL (32.0-36.0); Mean Corpuscular Hemoglobin 31.6 pg (27.0-31.0); Mean Corpuscular Volume 92.7 fL (78.0-98.0); Mean Platelet Volume 9.4 fL (7.4-10.4); Platelet Count 107 thou/uL (130-400); RBC Distribution Width 13.7 % (11.5-14.5); Red Blood Cell (RBC) Count 3.54 mill/uL (4.70-6.10); White Blood Cell (WBC) Count 5.6 thou/uL (4.8-10.8)
[2018-07-29 04:26] LABS: Anion Gap 13 mmol/L (10-20); BUN (Urea Nitrogen) 23 mg/dL (8.4-25.7); Calc. Creatinine Clearance 52 mL/min (70-130); Calcium 9.4 mg/dL (7.8-10.44); Carbon Dioxide 24 mmol/L (23-31); Chloride 109 mmol/L (98-107); Estimated GFR-MDRD 52; Glucose 102 mg/dL (83-110); Sodium 142 mmol/L (136-145)
[2018-07-29] MEDS: Cholestyramine/Aspartame 4 gm Packet PO SCH (05:16)
--- NOTE | 2018-07-29 06:53 | PDOC.FM ---
- Subjective Subjective: pt resting comfortably in bed, no chest pain or sob overnight. - Objective Vital Signs & Weight: Vital Signs (12 hours) Temp Pulse Pulse Resp BP BP BP 07/29/18 04:00 97.6 F 61 18 152/74 H 07/28/18 23:40 96.3 F L 71 18 146/68 H 07/28/18 20:32 97.5 F L 79 18 151/67 H 07/28/18 20:31 159/69 H 07/28/18 20:22 96.8 F L 80 16 159/69 H 07/28/18 20:00 96.7 F L 77 18 142/61 H 07/28/18 19:00 96.7 F L 77 16 142/61 H Pulse Ox 07/29/18 04:00 99 07/28/18 23:40 07/28/18 20:32 07/28/18 20:31 07/28/18 20:22 99 07/28/18 20:00 99 07/28/18 19:00 Weight Weight 85.956 kg I&O: 07/27/18 07/28/18 07/29/18 06:59 06:59 06:59 Intake Total 780 Output Total 750 Balance 30 Result Diagrams: 07/29/18 04:06 07/29/18 04:06 Phys Exam - Physical Examination Constitutional: NAD HEENT: moist MMs Neck: full ROM Respiratory: clear to auscultation bilateral murmur present Gastrointestinal: no distention Musculoskeletal: no edema Neurological: moves all 4 limbs Psychiatric: normal affect Skin: no rash Dx/Plan (1) Diabetes mellitus, type 2 Status: Acute (2) Unstable angina Status: Acute (3) GI bleed Code(s): K92.2 - GASTROINTESTINAL HEMORRHAGE, UNSPECIFIED Status: Acute (4) HLD (hyperlipidemia) Code(s): E78.5 - HYPERLIPIDEMIA, UNSPECIFIED Status: Acute - Plan Plan: Unstable angina -Similar pain to previous episodes of ACS, Troponin negative x3, EKG shows no acute signs of ischemia -Heparin gtt, nitro, and morphine for treatment -Hx of GI bleed with decrease in Hgb since admission, holding heparin/plavix -Consult cardiolgy, Dr. Hernandez, appreciate recs -Continue home meds CAD s/p stents -Continue home meds HFrEF -Continue home meds - Echo EF 55-60% IDDM -Continue home lantus -Mod SSI, ACHS accuchecks Iron deficiency anemia -Continues to have dark stools, previously worked up with no source of bleeding -receives monthly iron infusion, followed by hem/onc- SKINNY Morales, consulted -s/p 2u PRBCs 07/28, repeat Hb 11.2 Code: full Prophylaxis: SCDs PCP: Gabriella Disposition: dc home with no continued chest pain, close follow up
--- NOTE | 2018-07-29 08:19 | PDOC.CTH ---
Cardiology Progress Note - Subjective The pt seen and examined. No overnight events. No cardiac complaints. - Objective Vital Signs Temp Pulse Pulse Resp BP BP BP 07/29/18 08:00 98.1 F 54 L 17 07/29/18 04:00 97.6 F 61 18 152/74 H 07/28/18 23:40 96.3 F L 71 18 146/68 H 07/28/18 20:32 97.5 F L 79 18 151/67 H 07/28/18 20:31 159/69 H 07/28/18 20:22 96.8 F L 80 16 159/69 H BP Pulse Ox 07/29/18 08:00 165/73 H 95 07/29/18 04:00 99 07/28/18 23:40 07/28/18 20:32 07/28/18 20:31 07/28/18 20:22 99 Weight 189 lb 8 oz 07/28/18 07/29/18 07/30/18 06:59 06:59 06:59 Intake Total 780 Output Total 750 Balance 30 - Physical Examination General/Neuro: alert & oriented x3 Neck: no JVD present Lungs: CTA Heart: RRR Abdomen: soft Extremities: other: (No edema) - Telemetry Telemetry Rhythm: SR 56-70s - Labs Result Diagrams: 07/29/18 04:06 07/29/18 04:06 Troponin/CKMB Troponin I Less than 0.010 ng/mL (< 0.028) 07/27/18 16:40 - Assessment/Plan 1. Atypical CP - No more CP since Blood tx yesterday; negative trop, no ECG changed; On Imdur and Ranexa 2. HTN - Start Norvasc 5mg qd from this AM; 3. CAD with multiple cath and stent - On Bblokcer, Statin, and ASA, but no Plavix due to chronic Anemia. 4. DM type 2 - managed by PCP 5. Anemia - improved after 2 units PRBC tx yesterday; The pt will receive iron infusion today. 6. CKD stage 3 - stable MAR reviewed * From Cardiac standpoint, the pt is stable to d/c home when his BP is stable. The pt already has F/u appt with Dr Hernandez' office on 08/12/2018 Pt. seen and eval. by me. He feels better after a blood transfusion and is presently getting an iron transfusion. I agree with the a/p by the SANDER WOODEN PENCILS. Chest clear . RRR. No edema. Plan for d/c today after the iron transfusion is complete. Review of Systems - Review of Systems Constitutional: reports: no symptoms reported EENTM: reports: no symptoms reported Respiratory: reports: no symptoms reported Cardiac (ROS): reports: no symptoms reported ABD/GI: reports: no symptoms reported
[2018-07-29] MEDS: Aspirin Chewable 81 MG TAB PO SCH (08:54)
[2018-07-29] MEDS: Ubidecarenone 50 MG CAP PO SCH (08:54)
[2018-07-29] MEDS: Prenatal Vitamin 1 TAB PO SCH (08:54)
[2018-07-29] MEDS: Cyanocobalamin (Vitamin B-12) 1,000 MCG TAB PO SCH (08:55)
[2018-07-29] MEDS: Folic Acid 1 MG TAB PO SCH (08:55)
[2018-07-29] MEDS: Carvedilol 6.25 MG TAB PO SCH (08:55)
[2018-07-29] MEDS: ARGININE 500 MG PO SCH (09:00)
[2018-07-29] MEDS ORDERED: Amlodipine 5 MG TAB PO SCH (09:00)
[2018-07-29] MEDS: Insulin Glargine 24 UNITS in Pre-Filled Syringe 1 EACH SC SCH (09:01)
[2018-07-29] MEDS: Morphine 2 MG/ML SYRINGE SLOW IVP PRN (09:46)
--- NOTE | 2018-07-29 12:01 | PRG ---
DATE OF SERVICE: Mr. Townsend had an episode of chest discomfort this morning while walking. It sounds like his usual atypical pain except that it was exertional. He has been instructed to take nitroglycerin should this recur. He is not a candidate for further revascularization and will be treated medically in any event. Otherwise, he is ready for discharge to follow up with his home PCP. Job ID: [id number]
[2018-07-29] MEDS ORDERED: Iron Sucrose Complex 200 MG in Sodium Chloride 0.9% 250 ML 250 ML IVPB SCH (12:30)
[2018-07-29] MEDS ORDERED: Iron, Sodium Ferric Gluconate 250 MG in Sodium Chloride 0.9% 100 ML IVPB SCH (13:00)
[2018-07-29 15:54] VITALS: BP 128/60; TEMP 97.9
--- NOTE | 2018-07-29 21:01 | EKG ---
Test Reason : STAT Blood Pressure : / mmHG Vent. Rate : 084 BPM Atrial Rate : 084 BPM P-R Int : 212 ms QRS Dur : 154 ms QT Int : 440 ms P-R-T Axes : 043 254 030 degrees QTc Int : 519 ms Sinus rhythm with 1st degree A-V block Right bundle branch block Abnormal ECG When compared with ECG of 31-MAR-2018 13:21, (Unconfirmed) No significant change was found Confirmed by RHONA PATRICIA, DR. S. ([id number]) on 07/29/2018 9:00:54 PM Referred By: JESUS MANUEL Confirmed By:DR. Cheri MELGOZA MD
== END 2018-07-29 20:19 | disposition home or self-care (01) | DRG 378 ==
LOC: ERS 09:46 → 2NO 12:20
PROVIDERS: ADMIT Family Medicine; ATTEND Family Medicine
PROC: 30233N1 Transfusion of Nonautologous Red Blood Cells into Peripheral Vein, Percutaneous Approach (ICD-10-PCS; principal; 2018-07-28)
DX: K92.2 Gastrointestinal hemorrhage, unspecified (principal); I13.0 Hypertensive heart and chronic kidney disease with heart failure and stage 1 through stage 4 chronic kidney disease, or unspecified chronic kidney disease; I50.20 Unspecified systolic (congestive) heart failure; I25.110 Atherosclerotic heart disease of native coronary artery with unstable angina pectoris; N18.3 Chronic kidney disease, stage 3 (moderate); N40.0 Benign prostatic hyperplasia without lower urinary tract symptoms; K21.9 Gastro-esophageal reflux disease without esophagitis; E78.5 Hyperlipidemia, unspecified; E11.22 Type 2 diabetes mellitus with diabetic chronic kidney disease; D50.0 Iron deficiency anemia secondary to blood loss (chronic); M19.90 Unspecified osteoarthritis, unspecified site; I25.2 Old myocardial infarction; Z87.891 Personal history of nicotine dependence; Z90.49 Acquired absence of other specified parts of digestive tract; Z90.89 Acquired absence of other organs; Z98.61 Coronary angioplasty status; Z79.82 Long term (current) use of aspirin; Z79.02 Long term (current) use of antithrombotics/antiplatelets; Z86.73 Personal history of transient ischemic attack (TIA), and cerebral infarction without residual deficits; Z98.49 Cataract extraction status, unspecified eye
CPT/HCPCS: 36415; 36416; 36430; 71045; 80048; 80053; 82728; 83540; 83550; 83690; 84484; 85025; 85730; 86850; 86900; 86901; 93005; 93010; 93306; 94760; J1644; J1825; J2270; J2916; J7050; P9016

== ENCOUNTER 2018-08-13 08:13 | Inpatient (IN) | payer MEDICARE ==
--- NOTE | 2018-08-13 08:46 | PDOC.FPRHP ---
- History of Present Illness Chief Complaint: hematochezia History of Present Illness: This is an 83 yo M who presents to the ED via transfer from [facility] for GI bleed. Patient reports that he has had black stool intermittently, acute worsening on Saturday. BMs are mostly liquid. Unable to control BMs. Multiple BMs/ day. Patient describes condition as nearly constant, has had to start wearing depends. Patient reports associated generalized weakness, SOB on exertion, inability to ambulate second to weakness. Patient states that he has had GI bleeding in the past. Endorses abdominal pain in the RLQ and LLQ but mostly in the midepigastrum. States he feels bloated and like his abdomen is distended. Denies fever/chills. Endorses headache, dizziness. Endorses SOB and difficulty breathing, worse w/ movement. Endorses decreased appetite and nausea. Patient reports a fall several weeks ago and broke a rib. Patient reports that he received a blood transfusion for similar 2 weeks ago and was admitted, has been receiving occasional iron transfusions as directed by PCP. Patient reports last endoscopy approximately 2 years ago () , unknown last date of colonoscopy but was recently told by that his colon lining was thin and didn't want to use anesthetic due to cardiac history and 14 stents (Dr. Hernandez is tissue recovery technician). Patient reports that he was taken off Plavix and Aspirin on Saturday by PCP when he saw PCP for this issue, on no other thinners. Patient reports that since last admission he was put on oxygen at home for comfort - typically 2L NC. ED Course: Patient given 1g rocephin in ED - Allergies/Adverse Reactions Allergies Allergy/AdvReac Type Severity Reaction Status Date / Time No Known Drug Allergies Allergy Verified 08/13/18 15:06 watermelon Allergy Verified 08/13/18 15:06 - Home Medications Medication Instructions Recorded Confirmed Type Clopidogrel Bisulfate [Plavix] 75 mg PO DAILY 01/28/13 08/13/18 History Folic Acid [Folvite] 1 mg PO DAILY 08/27/13 08/13/18 History Ubidecarenone [Co Q-10] 200 mg PO DAILY 08/27/13 08/13/18 History Cyanocobalamin (Vitamin B-12) 1,200 mcg PO DAILY 02/01/15 08/13/18 History [Vitamin B12] Cholecalciferol (Vitamin D3) 1,000 unit PO DAILY 04/16/17 08/13/18 History [Vitamin D3] Fluticasone Propionate [Flonase 1 spray EA NARE DAILY PRN 04/16/17 08/13/18 History Allergy Relief] Tamsulosin HCl [Flomax] 0.4 mg PO HS 04/16/17 08/13/18 History Arginine [L-Arginine] 500 mg PO BID 04/17/17 08/13/18 History Cholestyramine (With Sugar) 1 teaspoon PO DAILY 04/17/17 08/13/18 History [Cholestyramine Packet] Isosorbide Mononitrate [Isosorbide 120 mg PO DAILY 04/17/17 08/13/18 History Mononitrate ER] Vit 28/Iron Fum/Folic 1 tablet PO DAILY 04/17/17 08/13/18 History [Theranatal Core Nutrition] Carvedilol 25 mg PO BID 09/14/17 08/13/18 History Pantoprazole [Protonix] 40 mg PO DAILY #30 tab 09/17/17 08/13/18 Rx Levemir Flexpen [Levemir FlexPen] 24 units SC BID 10/17/17 08/13/18 History Nitroglycerin [Nitrostat] 0.4 mg SL Q5MIN PRN 10/17/17 08/13/18 History Atorvastatin Calcium [Lipitor] 40 mg PO HS 30 Days tab 12/18/17 08/13/18 Rx Ranolazine [Ranexa] 1,000 mg PO BID 03/31/18 08/13/18 History Acetaminophen [Tylenol Regular 650 mg PO Q4H PRN tab 04/01/18 08/13/18 Rx Strength] Amlodipine [Norvasc] 5 mg PO DAILY #30 tab 07/29/18 08/13/18 Rx Sucralfate 1 gm PO QID 08/13/18 08/13/18 History - History PMHx: HFrEF, IDDM, CAD s/p 17 stents, upper GI bleed, CKD III, BPH, GERD, HTN PSHx: Cholecystectomy, tonsils and adenoidectomy, 17 cardiac stents, cardiac ablation FHx: Mother and father had heart disease Social: Former smoker 3-4 ppd for 30 years, rare alcohol, no drugs - Review of Systems General: reports: weight/appetite/sleep changes (decreased appetite). denies: fever/chills, night sweats, fatigue ENT: denies: nasal congestion, rhinorrhea Respiratory: reports: shortness of breath. denies: cough, congestion Cardiovascular: reports: chest pain. denies: palpitation, edema Gastrointestinal: reports: nausea, diarrhea, GI bleeding. denies: vomiting, constipation, abdominal pain Genitourinary: denies: dysuria Skin: denies: rashes, lesions, jaundice Neurological: denies: syncope, seizure - Vital signs BP: 117/61, Pulse: 83, Resp: 18, O2 sat: 99 on Room Air, Time: 08/13/2018 08:14. - Physical Exam Constitutional: NAD, awake, alert and oriented, well developed HEENT: normocephalic and atraumatic, PERRLA, EOMI, grossly normal vision, grossly normal hearing -HEENT: MM dry Neck: supple, FROM, trachea midline Heart: RRR Lungs: CTAB, no respiratory distress, good air movement, no rales/rhonchi, no wheezing, no retractions Abdomen: soft, bowel sounds present, no masses/distention -Abdomen: TTP in RLQ, no guarding or rebound Neurological: no focal deficit Skin: no rash/lesions, good turgor, capillary refill <2 seconds Psychiatric: normal mood and affect FMR H&P: Results - Labs Result Diagrams: 08/13/18 09:38 FMR H&P: A/P - Problem List (1) Elevated troponin Current Visit: Yes Status: Acute Code(s): R74.8 - ABNORMAL LEVELS OF OTHER SERUM ENZYMES (2) GI bleed Current Visit: No Status: Acute Code(s): K92.2 - GASTROINTESTINAL HEMORRHAGE , UNSPECIFIED Comment: heme positive stool, but H/H trending down now, suspect leak due to colitis and blood thinners (3) HLD (hyperlipidemia) Current Visit: No Status: Acute Code(s): E78.5 - HYPERLIPIDEMIA, UNSPECIFIED (4) BPH (benign prostatic hyperplasia) Current Visit: No Status: Chronic Code(s): N40.0 - BENIGN PROSTATIC HYPERPLASIA WITHOUT LOWER URINRY TRACT SYMP (5) CAD (coronary artery disease) Current Visit: No Status: Chronic Code(s): I25.10 - ATHSCL HEART DISEASE OF [place] CORONARY ARTERY W/O ANG PCTRS (6) CKD (chronic kidney disease), stage III Current Visit: No Status: Chronic Code(s): N18.3 - CHRONIC KIDNEY DISEASE, STAGE 3 (MODERATE) (7) Diabetes type 2, controlled Current Visit: No Status: Chronic Code(s): E11.9 - TYPE 2 DIABETES MELLITUS WITHOUT COMPLICATIONS (8) Dyslipidemia Current Visit: No Status: Chronic Code(s): E78.5 - HYPERLIPIDEMIA, UNSPECIFIED (9) GERD (gastroesophageal reflux disease) Current Visit: No Status: Chronic Code(s): K21.9 - GASTRO-ESOPHAGEAL REFLUX DISEASE WITHOUT ESOPHAGITIS (10) Hypertension Current Visit: No Status: Chronic Code(s): I10 - ESSENTIAL (PRIMARY) HYPERTENSION (11) Diverticulosis Current Visit: Yes Status: Acute Code(s): K57.90 - DVRTCLOS OF INTEST, PART UNSP, W/O PERF OR ABSCESS W/O BLEED - Plan Hematochezia, likely upper GI Bleed Patient presenting w/ large black stools. Patient on blood thinners which were stopped on Saturday. H/H stable. - Will consult GI, appreciate recommendations - Will will repeat H/H this AM and continue to monitor - s/p rocephin in the ED - Will continue IVF after another bolus - Start IV protonix Indeterminate Trop - 0.1, will continue to trend, elevated from baseline - Patient sees Dr. Hernandez outpatient JESSICA - BUN/Cr: 38/1.74, elevated from baseline - Will continue to monitor, will give mIVF DM2 - SS, ACHS - 07/02/18 A1C 5 CAD - aware, s/p stents, Sees Dr. Hernandez HLD - aware GERD - aware BPH - aware, will continue home meds Code: DNR DISPO: admit to tele as H/H stable Case discussed w/ Dr. Jackson FMR H&P: Upper Level - Pertinent history 83 yo male here for recent GI bleed. 3 day hx of black tarry stools. Pt has hx of iron def anemia and received 2 units pRBC 2 weeks ago. Also has hx of CAD s/ p stents x 14. Mary is cardiology. Last ECHO was 07/28/18, EF 55-60% with E/F reversal. Has also had hx of EGD approx 2 years ago, Dr. Jacobs of gastroenterology. Assoc abd pain, distended stomach, cramping, nausea. Denies vomiting, and radiating of pain. Was stopped on plavix, aspirin 2 days ago by PCP for this GI bleeding. In ER pt given protonix, NS 1L bolus and rocephin. - Pertinent findings H/H: 10.6/34.7 MCV: 95.7 Plt: 184 WBC: 11.8; N: 80.3 BUN: 38 Cr: 1.74 Trop: 0.105 117/61 HR: 83 Resp: 18 99% on RA GEN: NAD PULM: CTAB CARD: RRR, no mgr ABD: pos BS, RLQ TTP - Plan Date/Time: 08/13/18 0812 I, Tino Portillo DO, have evaluated this patient and agree with findings/plan as outlined by business intern resident. Pertinent changes/additions are listed here. #GI bleed -suspected upper -given protonix in er, will continue bid -given rocephin in ER -consult GI -continue fluid resus with 500ml, but watch fluid status because of hx of CHF -repeat H/H #JESSICA #indeterminate trops #Dehydration #Hx of HFpEF #HTN #Hx of CAD Addendum - Attending - Attending Attestation Date/Time: 08/13/18 770 I personally evaluated the patient and discussed the management with Dr. Soto/ Lindsey. H&P reviewed and repeated by me. I agree with the History, Examination, Assessment and Plan documented above with any addition or exceptions noted below. 83 y/o M with significant CAD and CHF who presents with worsening dark melanotic stools. He had plavix and asa stopped on Saturday by his pcp. however , symptoms continued and actually worsened this morning and were accompanied with weakness and dizziness and he was concerned he would fall and so called EMS. BP 120-130/70s and HR is 80s. Abdomen- soft, mod ttp RLQ, no rebound or guarding. Presumed upper GI bleed- continue to hold ASA and Plavix. H/H and vitals stable so to tele for monitoring. Appreciate GI input. NPO for now. JESSICA on CKD stage III- IVF CAD- hold asa/plavix. Will need toppiece cutter conversation with cardiology after determined source of bleeding to discuss risks/benefits.
[2018-08-13] MEDS ORDERED: cefTRIAXone\\ROCEPHIN 1 GM VIAL ONE (08:54)
[2018-08-13] MEDS ORDERED: Pantoprazole 40 MG VIAL IVP SCH ×2 (09:00→09:45)
[2018-08-13] MEDS ORDERED: Ondansetron PF 4 MG/2 ML Vial IVP PRN (09:19)
[2018-08-13] MEDS ORDERED: Ondansetron ODT 4 MG TAB PO PRN (09:19)
[2018-08-13 10:05] LABS: Hemoglobin 9.8 g/dL (14.0-18.0)
[2018-08-13] MEDS: Lactated Ringer's 1,000 ML IV SCH ×2 (11:32→20:28)
[2018-08-13 12:29] LABS: Troponin I 0.104 ng/mL (< 0.028)
[2018-08-13] MEDS ORDERED: Carvedilol 25 MG TAB PO SCH (14:00)
[2018-08-13] MEDS ORDERED: Amlodipine 5 MG TAB PO SCH (14:00)
[2018-08-13] MEDS ORDERED: Tamsulosin HCl 0.4 MG CAP PO SCH (14:00)
[2018-08-13 15:35] LABS: Troponin I 0.106 ng/mL (< 0.028)
[2018-08-13] MEDS: Sucralfate 1 GM TAB PO SCH ×3 (16:30→22:46)
[2018-08-13] MEDS: Pantoprazole 40 MG VIAL IVP SCH (20:29)
[2018-08-13] MEDS: Carvedilol 25 MG TAB PO SCH ×2 (22:05→22:46)
[2018-08-14] MEDS: Acetaminophen 325 MG TAB PO PRN (01:12)
[2018-08-14] MEDS: Lactated Ringer's 1,000 ML IV SCH ×3 (01:17→21:57)
[2018-08-14 05:55] LABS: #Eosinphils 0.4 thou/uL (0.0-0.7); #Lymphocytes 0.9 thou/uL (1.20-3.40); #Monocytes 0.8 thou/uL (0.11-0.59); #Neutrophils 6.9 thou/uL (1.40-6.50); %Basophils 0.3 % (0.0-1.0); %Eosinophils 4.4 % (0.0-10.0); %Lymphocytes 10.1 % (21.0-51.0); %Monocytes 8.8 % (0.0-10.0); %Neutrophils 76.5 % (42.0-75.0); Hemoglobin 10.3 g/dL (14.0-18.0); Mean Corpuscular HGB CONC 33.1 g/dL (32.0-36.0); Mean Corpuscular Hemoglobin 30.5 pg (27.0-31.0); Mean Corpuscular Volume 92.1 fL (78.0-98.0); Mean Platelet Volume 9.7 fL (7.4-10.4); Platelet Count 160 thou/uL (130-400); RBC Distribution Width 13.7 % (11.5-14.5); Red Blood Cell (RBC) Count 3.39 mill/uL (4.70-6.10)
[2018-08-14 06:12] LABS: ALT (SGPT) 23 U/L (8-55); AST (SGOT) 24 U/L (5-34); Alkaline Phosphatase 79 U/L (40-150); Anion Gap 14 mmol/L (10-20); BUN (Urea Nitrogen) 26 mg/dL (8.4-25.7); Bilirubin, Total 0.3 mg/dL (0.2-1.2); Calc. Creatinine Clearance 46 mL/min (70-130); Carbon Dioxide 14 mmol/L (23-31); Chloride 115 mmol/L (98-107); Estimated GFR-MDRD 46; Globulin 2.5 g/dL (2.4-3.5); Glucose 96 mg/dL (83-110); Potassium 3.8 mmol/L (3.5-5.1); Protein, Total 6.5 g/dL (5.8-8.1); Sodium 139 mmol/L (136-145)
--- NOTE | 2018-08-14 06:52 | PDOC.FM ---
- Subjective Subjective: NAEO. The patient resting in bed this AM. Patient is concerned that GI didn't see him yesterday. Patient continued to have loose black stools. Patient denies feeling dizzy or lightheaded. patient endorses continued abdominal pain in RLQ but improved since yesterday. - Objective Vital Signs & Weight: Vital Signs (12 hours) Temp Pulse Resp BP Pulse Ox 08/14/18 04:00 97.6 F 93 20 127/59 L 95 08/13/18 22:49 99 20 149/76 H 08/13/18 20:00 97.3 F L 96 20 151/71 H 98 08/13/18 19:51 98 Weight Weight 84.731 kg I&O: 08/12/18 08/13/18 08/14/18 06:59 06:59 06:59 Intake Total 1745 Output Total 1100 Balance 645 Result Diagrams: 08/14/18 05:37 08/14/18 05:37 Phys Exam - Physical Examination Constitutional: NAD HEENT: PERRLA, moist MMs, sclera anicteric Neck: supple, full ROM Respiratory: clear to auscultation bilateral Cardiovascular: RRR Gastrointestinal: soft, no distention, positive bowel sounds TTP in RLQ Neurological: non-focal, moves all 4 limbs Psychiatric: normal affect, A&O x 3 Skin: no rash, normal turgor, cap refill <2 seconds Dx/Plan (1) Elevated troponin Code(s): R74.8 - ABNORMAL LEVELS OF OTHER SERUM ENZYMES Status: Acute (2) GI bleed Code(s): K92.2 - GASTROINTESTINAL HEMORRHAGE, UNSPECIFIED Status: Acute (3) HLD (hyperlipidemia) Code(s): E78.5 - HYPERLIPIDEMIA, UNSPECIFIED Status: Acute (4) BPH (benign prostatic hyperplasia) Code(s): N40.0 - BENIGN PROSTATIC HYPERPLASIA WITHOUT LOWER URINRY TRACT SYMP Status: Chronic (5) CAD (coronary artery disease) Code(s): I25.10 - ATHSCL HEART DISEASE OF [place] CORONARY ARTERY W/O ANG PCTRS Status: Chronic (6) CKD (chronic kidney disease), stage III Code(s): N18.3 - CHRONIC KIDNEY DISEASE, STAGE 3 (MODERATE) Status: Chronic (7) Diabetes type 2, controlled Code(s): E11.9 - TYPE 2 DIABETES MELLITUS WITHOUT COMPLICATIONS Status: Chronic (8) Dyslipidemia Code(s): E78.5 - HYPERLIPIDEMIA, UNSPECIFIED Status: Chronic (9) GERD (gastroesophageal reflux disease) Code(s): K21.9 - GASTRO-ESOPHAGEAL REFLUX DISEASE WITHOUT ESOPHAGITIS Status: Chronic (10) Hypertension Code(s): I10 - ESSENTIAL (PRIMARY) HYPERTENSION Status: Chronic (11) Diverticulosis Code(s): K57.90 - DVRTCLOS OF INTEST, PART UNSP, W/O PERF OR ABSCESS W/O BLEED Status: Acute - Plan Plan: Hematochezia, likely upper GI Bleed Patient presenting w/ large black stools. Patient on blood thinners which were stopped on Saturday. H/H stable. - Will consult GI, appreciate recommendations - s/p rocephin in the ED - Will continue IVF after another bolus - IV protonix - H/H stable Indeterminate Trop - 0.1, will continue to trend, elevated from baseline - Patient sees Dr. Hernandez outpatient JESSICA - BUN/Cr: 38/1.74, elevated from baseline - downtrending - Will continue to monitor, will give mIVF DM2 - SS, ACHS - 07/02/18 A1C 5 CAD - aware, s/p stents, Sees Dr. Hernandez HLD - aware GERD - aware BPH - aware, will continue home meds Code: DNR DISPO: dc pending clinical course and GI recs Addendum - Attending - Attending Attestation Date/Time: 08/14/18 3887 I personally evaluated the patient and discussed the management with Dr. Soto. I agree with the History, Examination, Assessment and Plan documented above with any addition or exceptions noted below. Presumed upper GI bleed causing melena. EGD today with Dr. Jacobs. Stool studies pending. Anemia- stable h/h Significant CAD- has been off asa and plavix since Saturday. Will need to discuss with his fisher scallop about director of operations support anticoag pending EGD results. Deconditioning/weakness- may benefit from SNF/Swing Bed prior to d/c home
[2018-08-14] MEDS: Tamsulosin HCl 0.4 MG CAP PO SCH (08:55)
[2018-08-14] MEDS: Amlodipine 5 MG TAB PO SCH (08:56)
[2018-08-14] MEDS: Sucralfate 1 GM TAB PO SCH ×4 (08:57→21:37)
[2018-08-14] MEDS: Folic Acid 1 MG TAB PO SCH (08:57)
[2018-08-14] MEDS: Carvedilol 25 MG TAB PO SCH ×2 (08:58→21:37)
[2018-08-14] MEDS: Fluticasone Propionate Nasal Spray 16 gm Bottle NASAL SCH (08:59)
[2018-08-14] MEDS ORDERED: Carvedilol 25 MG TAB PO SCH (09:00)
[2018-08-14] MEDS: Pantoprazole 40 MG VIAL IVP SCH ×2 (09:01→21:38)
[2018-08-14] MEDS ORDERED: PROPOFOL 200 MG/20 ML VIAL ONE (10:08)
[2018-08-14] MEDS ORDERED: Promethazine HCl 25 MG/ML VIAL SLOW IVP PRN (12:27)
[2018-08-14] MEDS ORDERED: Promethazine HCl 25 MG/ML VIAL IM PRN (12:27)
[2018-08-14] MEDS ORDERED: Ondansetron HCl/PF 4 MG/2 ML Vial IVP PRN (12:27)
[2018-08-14 14:45] VITALS: BMI 29.2
--- NOTE | 2018-08-14 18:36 | CON ---
DATE OF CONSULTATION: HISTORY OF PRESENT ILLNESS: The patient is a pleasant 83-year-old gentleman, who presented with recurrent GI bleed. The patient has a long history of coronary artery disease. He has undergone multiple previous cardiac catheterizations and stent placement. The most recent was in January 2015. The first diagonal branch of left anterior descending artery had a 50% stenosis. The left circumflex artery had a 75% stenosis in an obtuse marginal branch. There is also another 70% stenosis in this vessel. The left circumflex artery was a small caliber vessel. The right coronary artery had a 50% stenosis and a subsequent 75% distal stenosis. The patient has been on chronic medical therapy. He was readmitted with chest pain and a GI hemorrhage a few weeks ago. The patient was at home and was taking Plavix and aspirin when he started having bloody stool and hematochezia. The patient stopped taking his aspirin and Plavix 3 days ago. He was admitted for further evaluation, underwent an endoscopy. The patient denied having any chest discomfort. PAST MEDICAL HISTORY: Significant for, 1. Coronary artery disease. 2. GI hemorrhage. 3. Hypertension. 4. Diabetes mellitus. 5. BPH. PAST SURGICAL HISTORY: He had a hemorrhoidectomy, knee surgery, and cholecystectomy. SOCIAL HISTORY: Nonsmoker. ALLERGIES: HE IS ALLERGIC TO [place]. SOCIAL HISTORY: Former smoker. MEDICATIONS: See nursing list. REVIEW OF SYSTEMS: Ten-point system, otherwise unremarkable. PHYSICAL EXAMINATION: GENERAL: Obese gentleman, in no acute distress. VITAL SIGNS: Blood pressure of 132/85. NECK: Showed no jugular venous distention. LUNGS: Clear to auscultation. HEART: Regular rate and rhythm. Normal S1 and S2. No murmurs. ABDOMEN: Nondistended. EXTREMITIES: Show no edema. LABORATORY DATA: White blood cell count 9.0, hemoglobin 10.3, hematocrit 31.2, and platelets 160. Sodium 139, potassium 3.8, chloride 115, bicarb 26, and BUN 1.4. Troponin 0.106. EKG revealed sinus rhythm with first-degree AV block, right bundle-branch block, and left anterior fascicular block. IMPRESSION: 1. Gastrointestinal bleed. 2. Coronary artery disease. 3. Diabetes mellitus. 4. Hypertension. 5. Dyslipidemia. PLAN: This gentleman presents with another GI hemorrhage. The patient was on both aspirin and Plavix, most likely will only able to tolerate one anti-platelet medication. Further recommendation will follow. Job ID: [id number]
[2018-08-14] MEDS: Vancomycin HCl 25 MG/ML Oral PO SCH (21:37)
[2018-08-15] MEDS: Vancomycin HCl 25 MG/ML Oral PO SCH ×4 (03:13→21:07)
--- NOTE | 2018-08-15 07:04 | PDOC.FM ---
- Subjective Subjective: NAEO. Patient reports he is feeling better/stronger today as compared to yesterday. He states that he still had one episode of diarrhea yesterday, but that it has slowed down quite a bit. He states they told him they found a polyp and an ulcer. He states he also talked to cardiology about anti-platelet therapy and GI risk. He is still weighing the options. - Objective MAR Reviewed: Yes Vital Signs & Weight: Vital Signs (12 hours) Temp Pulse Resp BP Pulse Ox 08/15/18 04:30 98.5 F 83 21 H 137/66 97 08/15/18 00:00 16 08/14/18 20:00 96.4 F L 84 20 140/75 98 Weight Admit Weight 85.094 kg Weight 84.731 kg I&O: 08/14/18 08/15/18 08/16/18 06:59 06:59 06:59 Intake Total 1745 1560 Output Total 1100 Balance 645 1560 Result Diagrams: 08/15/18 10:16 08/14/18 05:37 Phys Exam - Physical Examination Constitutional: NAD HEENT: PERRLA, moist MMs, sclera anicteric Neck: supple, full ROM Respiratory: clear to auscultation bilateral Cardiovascular: RRR Gastrointestinal: soft, positive bowel sounds Neurological: non-focal, moves all 4 limbs Psychiatric: normal affect, A&O x 3 Skin: no rash, normal turgor, cap refill <2 seconds Dx/Plan (1) Elevated troponin Code(s): R74.8 - ABNORMAL LEVELS OF OTHER SERUM ENZYMES Status: Acute (2) GI bleed Code(s): K92.2 - GASTROINTESTINAL HEMORRHAGE, UNSPECIFIED Status: Acute (3) HLD (hyperlipidemia) Code(s): E78.5 - HYPERLIPIDEMIA, UNSPECIFIED Status: Acute (4) BPH (benign prostatic hyperplasia) Code(s): N40.0 - BENIGN PROSTATIC HYPERPLASIA WITHOUT LOWER URINRY TRACT SYMP Status: Chronic (5) CAD (coronary artery disease) Code(s): I25.10 - ATHSCL HEART DISEASE OF [place] CORONARY ARTERY W/O ANG PCTRS Status: Chronic (6) CKD (chronic kidney disease), stage III Code(s): N18.3 - CHRONIC KIDNEY DISEASE, STAGE 3 (MODERATE) Status: Chronic (7) Diabetes type 2, controlled Code(s): E11.9 - TYPE 2 DIABETES MELLITUS WITHOUT COMPLICATIONS Status: Chronic (8) Dyslipidemia Code(s): E78.5 - HYPERLIPIDEMIA, UNSPECIFIED Status: Chronic (9) GERD (gastroesophageal reflux disease) Code(s): K21.9 - GASTRO-ESOPHAGEAL REFLUX DISEASE WITHOUT ESOPHAGITIS Status: Chronic (10) Hypertension Code(s): I10 - ESSENTIAL (PRIMARY) HYPERTENSION Status: Chronic (11) Diverticulosis Code(s): K57.90 - DVRTCLOS OF INTEST, PART UNSP, W/O PERF OR ABSCESS W/O BLEED Status: Acute - Plan Plan: Hematochezia, likely upper GI Bleed Patient presenting w/ large black stools. Patient on blood thinners which were stopped on Saturday. H/H stable. - Will consult GI, appreciate recommendations - EGD on 08/14, ulcer and polyp found - s/p rocephin in the ED - IV protonix - H/H stable Clostridium difficile infection - Positive stool study for C Diff - patient started on oral Vanc Indeterminate Trop - 0.1, will continue to trend, elevated from baseline - Patient sees Dr. Hernandez outpatient JESSICA - BUN/Cr: 38/1.74, elevated from baseline - downtrending - Will continue to monitor, will give mIVF DM2 - SS, ACHS - 07/02/18 A1C: 5 CAD - aware, s/p stents, Sees Dr. Hernandez - Cards consulted to discuss risks/benefits of anti-platelet medications; appreciate recs HLD - aware GERD - aware BPH - aware, will continue home meds Code: DNR DISPO: dc pending GI and cards ABIGAIL neil following for placement Addendum - Attending - Attending Attestation Date/Time: 08/15/18 5931 I personally evaluated the patient and discussed the management with Dr. Soto. I agree with the History, Examination, Assessment and Plan documented above with any addition or exceptions noted below. C diff colitis- on oral vanc Gastric ulcer- non-bleeding. Will need further discussions with cards about antiplatelet (ASA and plavix). Deconditioning- will need snf prior to d/c
--- NOTE | 2018-08-15 07:57 | CON ---
DATE OF CONSULTATION: 08/14/2018 REFERRING DOCTOR: Dr. Talya Soto, Family Medicine Service. REASON FOR CONSULTATION: Severe diarrhea, history of black tarry stool over the last 5 days. HISTORY OF PRESENT ILLNESS: Mr. Iggy Townsend is a very pleasant 83-year-old male, who is known to me for many years. The patient is known to have coronary artery disease, has had multiple stent placement done by Dr. Hernandez. The patient is on Plavix and aspirin on a chronic basis. The patient has had recurrent microcytic anemia over the years. The patient has had negative endoscopies in the past. The last colonoscopy done probably about 4 or 5 years ago. Last EGD was done in 2018 because of dysphagia. He had nonobstructive esophageal ring and hypertrophic gastric mucosa. There was no any other pathology seen in the stomach. Colonoscopy done probably 4 or 5 years ago. Because of the multiple medical problems and cardiac disease, I did not prefer any colonoscopy since 2013. The patient has been admitted several times with several episodes of black tarry stools and anemia. He has been transfused off and on. He does see Hematology Service and does get intermittent iron infusion off and on. The patient developed severe diarrhea and multiple tarry stools. He is also having some lower abdominal cramping pain. The pain is over the right lower quadrant and the periumbilical area. The patient had seen Dr. Preet Quiroz, his primary care doctor. Plavix and aspirin stopped approximately 5 days ago. The patient comes in because of severe diarrhea and history of black tarry stools. On admission, he was found to be mildly anemic. The hemoglobin yesterday was 10.6, dropping down to 9.8 and coming up to 10.3. His hematocrit 31.2, platelet is 160,000. The patient gives history of taking some antibiotics approximately 4 or 5 weeks ago. Does not know the name of antibiotics and what for he took it. I saw him this morning after he had a bowel movement. The stool is actually greenish and not black and tarry. There is no nausea, no vomiting. No history of any hematemesis or coughing and vomiting. The patient has had multiple EGDs and colonoscopy in the past and it was felt that his bleeding was mostly from vascular ectasia or from small blood vessel bleeding because of aspirin and Plavix. No relevant symptoms. ALLERGIES: NONE. MEDICAL ILLNESSES: 1. Coronary artery disease, multiple stent placement. 2. Obesity. 3. Insulin-dependent diabetes mellitus. 4. Hypertension. 5. Chronic kidney disease. 6. BPH. 7. Chronic acid reflux. 8. Anemia. PAST SURGICAL HISTORY: 1. Cholecystectomy. 2. Tonsillectomy. 3. Multiple cardiac stent placement. 4. Cardiac ablation. 5. Cardiac arrhythmia. FAMILY HISTORY: Mother and father had heart disease. SOCIAL HISTORY: The patient is single. He is a former smoker. Does not drink alcohol. MEDICATION LIST: Reviewed. He was on Plavix and aspirin until 5 days ago. REVIEW OF SYSTEMS: A 10-point system review; CONSTITUTIONAL: Poor appetite, generalized fatigue, extreme tiredness. HEENT: No diplopia. No ear pain. No sore throat or dysphagia. RESPIRATORY SYSTEM: History of difficulty breathing with minimal exertion. Denies any cough, hemoptysis. CARDIOVASCULAR SYSTEM: No chest pain. No palpitation. Does complain of dyspnea on exertion. No orthopnea or PND. GI: Abdominal pain over the right lower quadrant and periumbilical area. He has also had some black tarry stools with explosive diarrhea recently. : No dysuria, hematuria, or frequent urination. NEUROLOGICAL: No weakness. No seizures. PSYCHIATRIC: No depression or anxiety. PHYSICAL EXAMINATION: GENERAL: The patient is awake, alert, communicative. He is in no distress. He seems to be lying on the bed without any difficulty breathing. VITAL SIGNS: Actually very stable. Afebrile. Pulse is 87, blood pressure 116/58. HEENT: Conjunctivae clear. NECK: Supple. No adenitis or thyromegaly noted. CARDIOVASCULAR: First and second heart sounds heard. LUNGS: Clear to auscultation. ABDOMEN: Soft and nondistended. However, he is tender over the right lower quadrant and periumbilical area. There is no rebound or guarding. Bowel sounds normal. EXTREMITIES: Reveal no edema. LABORATORY DATA: Showed anemia which appears to be stable. On admission on 07/28/2018, he had a hemoglobin of 8.6. The most recent CBC today; WBC 9000, hemoglobin 10.3, hematocrit 31.2, MCV 92.1, platelet count is 160,000, polymorphs 76, lymphocytes 10. Serum chemistries; sodium is 139, potassium 3.8, chloride 115, bicarb 14, BUN is 26, creatinine 1.46, glucose 96, calcium 9. Bilirubin 0.3, AST 24, ALT 23, alkaline phosphatase 79, albumin is 4. CLINICAL IMPRESSION: 1. An 83-year-old male with explosive diarrhea and he said the stools are watery and he has been having multiple stools. The patient's stool this morning is actually not black and is more greenish. The patient took some antibiotics few weeks ago and he does not know the name of the antibiotic. 2. 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 The previous colonoscopy and EGD were basically negative. This has been an ongoing problem for many years. Unfortunately, he is on Plavix and aspirin. 3. Coronary artery disease, status post multiple stent placement. 4. Chronic kidney disease. 5. Diabetes. 6. Hypertension. 7. Benign prostatic hyperplasia. Overall impression, recurrent anemia and black tarry stool, most likely from Plavix and aspirin. It appears there is no significant pathology. At the present time, the stool is actually more greenish than black and his blood count is stable. It is possible that the patient could have some bleeding off and on from vascular ectasia. Because of his antibiotic intake, we will probably obtain some stool for C. diff to rule out . PLAN: 1. N.p.o. for now. 2. EGD done today. 3. I will make further recommendation after the EGD. Job ID: [id number]
[2018-08-15] MEDS: Fluticasone Propionate Nasal Spray 16 gm Bottle NASAL SCH (09:37)
[2018-08-15] MEDS: Pantoprazole 40 MG VIAL IVP SCH ×2 (09:37→21:08)
[2018-08-15] MEDS: Sucralfate 1 GM TAB PO SCH ×4 (09:38→21:07)
[2018-08-15] MEDS: Carvedilol 25 MG TAB PO SCH ×2 (09:38→21:06)
[2018-08-15] MEDS: Tamsulosin HCl 0.4 MG CAP PO SCH (09:38)
[2018-08-15] MEDS: Folic Acid 1 MG TAB PO SCH (09:38)
[2018-08-15] MEDS: Amlodipine 5 MG TAB PO SCH (09:38)
[2018-08-15 10:23] LABS: #Eosinphils 0.4 thou/uL (0.0-0.7); #Monocytes 0.8 thou/uL (0.11-0.59); #Neutrophils 6.1 thou/uL (1.40-6.50); %Basophils 0.2 % (0.0-1.0); %Eosinophils 4.5 % (0.0-10.0); %Lymphocytes 11.7 % (21.0-51.0); %Monocytes 10.1 % (0.0-10.0); %Neutrophils 73.6 % (42.0-75.0); Hemoglobin 9.3 g/dL (14.0-18.0); Mean Corpuscular HGB CONC 33.4 g/dL (32.0-36.0); Mean Corpuscular Hemoglobin 30.7 pg (27.0-31.0); Mean Corpuscular Volume 91.7 fL (78.0-98.0); Mean Platelet Volume 9.5 fL (7.4-10.4); Platelet Count 166 thou/uL (130-400); RBC Distribution Width 13.8 % (11.5-14.5); Red Blood Cell (RBC) Count 3.02 mill/uL (4.70-6.10); White Blood Cell (WBC) Count 8.3 thou/uL (4.8-10.8)
--- NOTE | 2018-08-15 11:43 | PQF ---
MAXINE RUFFCELIA *r [id number] CLINICAL DOCUMENTATION IMPROVEMENT CLARIFICATION FORM: ICD-10 Updated PLEASE DO AN ADDENDUM TO THE PROGRESS NOTE WITH ANY DOCUMENTATION UPDATES OR ADDITIONS AND CARRY THROUGH TO DC SUMMARY. THANK YOU. DATE: 08/15/2018 ATTN:DR. Bonnie ADAM Please exercise your independent, professional judgment in responding to the clarification form. Clinical indicators are provided on the bottom of this form for your review. Please check appropriate box(s): AMI TYPE: [ ] NSTEMI (NE type I) [ ] NSTEMI due to Demand Ischemia secondary to GI Bleed (AMI Type II) [ x ] Demand Ischemia without NE [ ] Other diagnosis [ ] Unable to determine In addition, please specify: Present on Admission (POA): [ x ] Yes [ ] No [ ] Unable to determine CLINICAL INDICATORS - SIGNS / SYMPTOMS / LABS ED PHYSICIAN DIAGNOSIS ELEVATED TROPONIN 08/13 H & P (JAIR) - HISTORY OF CAD, S/P 17 STENTS, ASSESSMENT /PLAN: 1) ELEVATED TROPONIN 08/14 PN (JAIR) - DX/PLAN 1) ELEVATED TROPONIN 08/13 TROPONIN I 0.110 0.104 0.106 RISK: HX OF CAD AND HTN HX OF TOBACCO ABUSE HX OF HIGH CHOLESTEROL HX OF DM TX CARDIOLOGY CONSULT CONTINUOUS CARDIAC MONITORING THANK YOU! DOM (This form is maintained as a part of the permanent medical record) 2014 [employer] All Rights Reserved [email or web address] [phone] MTDD
[2018-08-15] MEDS: Acetaminophen 325 MG TAB PO PRN (12:26)
--- NOTE | 2018-08-15 12:26 | PDOC.CTH ---
Cardiology Progress Note - Subjective The pt seen and examined. No overnight events. No cardiac complaints, except weakness. - Objective Vital Signs Temp Pulse Pulse Pulse Resp BP BP 08/15/18 12:18 76 16 08/15/18 08:42 80 84 138/69 138/69 08/15/18 07:01 98.0 F 81 16 08/15/18 04:30 98.5 F 83 21 H BP Pulse Ox 08/15/18 12:18 131/59 L 98 08/15/18 08:42 08/15/18 07:01 122/60 98 08/15/18 04:30 137/66 97 Admit Weight 187 lb 9.6 oz Weight 187 lb 4.8 oz 08/14/18 08/15/18 08/16/18 06:59 06:59 06:59 Intake Total 1745 1800 Output Total 1100 Balance 645 1800 - Physical Examination General/Neuro: alert & oriented x3 Neck: no JVD present Lungs: CTA Heart: RRR Abdomen: soft Extremities: other: (No edema) - Telemetry Telemetry Rhythm: SR - Labs Result Diagrams: 08/15/18 10:16 08/14/18 05:37 Troponin/CKMB Troponin I 0.106 ng/mL (< 0.028) H 08/13/18 15:00 - Assessment/Plan 1. Type 2 NSTEMI - possible 2/2 GI bleed; No ECG changed; Asymptomatic; cont. to monitor 2. GI bleed possible 2/2 Diverticulosis - s/p EGD; stable with ABX IV; holding ASA and Plavix; managed by GI 3. CAD with multiple cath and stent placement - 4. HTN - stable 5. DM type 2 - 6. Anemia - stable 7. CKD stage 3 - stable 8. HLD - MAR reviewed Pt. seen and eval. by me. I agree with the A/P by the MULTIFOLD OPERATOR. His cardiac status is stable. The increase in the T.I. is due to demand ischemia due to the anemia. He denies chest pain. Chest clear. RRR. No edema. Review of Systems - Review of Systems Constitutional: reports: no symptoms reported EENTM: reports: no symptoms reported Respiratory: reports: no symptoms reported Cardiac (ROS): reports: no symptoms reported ABD/GI: reports: no symptoms reported : reports: no symptoms reported
--- NOTE | 2018-08-15 13:49 | OP ---
DATE OF PROCEDURE: 08/14/2018 OPERATIVE PROCEDURE: Esophagogastroduodenoscopy. PREOPERATIVE DIAGNOSIS: History of black tarry stool over the last several days. POSTOPERATIVE DIAGNOSES: 1. Hiatal hernia. 2. Multiple gastric polyps. 3. Diffusely hypertrophic polyp appearing mucosa of stomach. 4. Gastric ulcer, gastric antrum with erosion. 5. Normal duodenum. At the time of endoscopy, no active bleeding seen. DESCRIPTION OF PROCEDURE: The patient was placed on his left lateral position and was given sedation by Anesthesia Department. The Pentax video gastroscope under direct vision passed down the oropharynx, past the GE junction into the stomach and subsequently descending duodenum. The esophageal mucosa appeared normal. In the GE junction, no pathology seen. Hiatal hernia. Upon entering the stomach, the patient found to have multiple gastric polyps. In fact, the gastric mucosa appears polypoid with multiple tiny polyps towards the gastric body and antrum. One of the polyp of the gastric antrum appeared ulcerated. The other polyp . No active bleeding seen. As he was on Plavix and aspirin recently, I does not want to biopsy the polyp. The duodenal bulb and descending duodenum, no pathology seen. The stomach was decompressed and the scope removed. RECOMMENDATIONS: 1. Continue pantoprazole. 2. Follow up H and H. Job ID: [id number]
--- NOTE | 2018-08-15 14:45 | PRG ---
DATE OF SERVICE: 08/15/2018 SUBJECTIVE: This is an 83-year-old hospitalized with explosive diarrhea, history of black tarry stool. Although, the stools becomes greenish and not blackish anymore. His blood count has been stable at 10.3. The patient's diarrhea is slowing down. He has had three stools today and stools are still greenish and small in volume. There is no abdominal pain. No nausea. No vomiting. He had stool for C. difficile came back positive. He was started on vancomycin later yesterday. Clinically appears comfortable. He is awake, alert, and communicative. He had not any distress. He is not short of breath. Denies chest pain or difficulty breathing. PHYSICAL EXAMINATION: GENERAL: He is obese, appears comfortable. VITAL SIGNS: Pulse is 76 and blood pressure 130/59. HEENT: Conjunctivae clear. CARDIOVASCULAR: Within normal limits. LUNGS: Within normal limits. ABDOMEN: Soft. No organomegaly. No tenderness. No masses. EXTREMITIES: Reveal no edema. CENTRAL NERVOUS SYSTEM: Grossly within normal limits. LABORATORY DATA: From today WBC 8300, hemoglobin 9.3, hematocrit 27.7, MCV 91.7, platelet count 160,000. The stool for C. diff is positive for both toxin and antigen. The stool for ova and parasites study negative. CLINICAL IMPRESSION: 1. Clostridium difficile diarrhea, on vancomycin. 2. examination yesterday. He does have ulcer disease over the gastric antrum. RECOMMENDATIONS: 1. Continue vancomycin. 2. Follow up H and H. 3. We will follow up. Job ID: [id number]
[2018-08-16] MEDS: Vancomycin HCl 25 MG/ML Oral PO SCH ×4 (03:15→20:39)
--- NOTE | 2018-08-16 05:37 | PDOC.FM ---
- Subjective Subjective: NAEO. Pt denies GI bleed, still has some loose water stools. Able to ambulate to bathroom with no sxs aside from feeling a little weak. At around his baseline per pt. Denies chest pain. - Objective MAR Reviewed: Yes Vital Signs & Weight: Vital Signs (12 hours) Temp Pulse Resp BP Pulse Ox 08/16/18 04:25 97.3 F L 77 16 140/74 97 08/15/18 20:00 97.6 F 85 16 142/67 H 100 08/15/18 19:15 100 Weight Admit Weight 85.094 kg Weight 84.958 kg I&O: 08/14/18 08/15/18 08/16/18 06:59 06:59 06:59 Intake Total 1745 1800 1200 Output Total 1100 750 Balance 645 1800 450 Result Diagrams: 08/15/18 10:16 08/14/18 05:37 Phys Exam - Physical Examination Constitutional: NAD HEENT: PERRLA, moist MMs Neck: full ROM Respiratory: no wheezing, clear to auscultation bilateral Cardiovascular: RRR, no significant murmur Gastrointestinal: soft, no distention Musculoskeletal: no edema Neurological: non-focal, moves all 4 limbs Psychiatric: normal affect, A&O x 3 Skin: cap refill <2 seconds Dx/Plan (1) Gastric ulcer Code(s): K25.9 - GASTRIC ULCER, UNSP ACUTE OR CHRONIC, W/O HEMOR OR PERF Status: Acute (2) GI bleed Code(s): K92.2 - GASTROINTESTINAL HEMORRHAGE, UNSPECIFIED Status: Acute (3) Unstable angina Status: Acute (4) CAD (coronary artery disease) Code(s): I25.10 - ATHSCL HEART DISEASE OF [place] CORONARY ARTERY W/O ANG PCTRS Status: Chronic (5) Diabetes type 2, controlled Code(s): E11.9 - TYPE 2 DIABETES MELLITUS WITHOUT COMPLICATIONS Status: Chronic (6) Dyslipidemia Code(s): E78.5 - HYPERLIPIDEMIA, UNSPECIFIED Status: Chronic (7) GERD (gastroesophageal reflux disease) Code(s): K21.9 - GASTRO-ESOPHAGEAL REFLUX DISEASE WITHOUT ESOPHAGITIS Status: Chronic (8) Hypertension Code(s): I10 - ESSENTIAL (PRIMARY) HYPERTENSION Status: Chronic (9) Obesity (BMI 30.0-34.9) Code(s): E66.9 - OBESITY, UNSPECIFIED Status: Chronic - Plan Plan: Upper GI bleed likely 2/2 gastric ulcer - S/P Day 2 of EGD, which showed non-bleeding gastric ulcer - Still on IV Pantoprazole BID, H/H pending this AM, will transition to PO - GI following along, appreciate recs Clostridium difficile infection - Positive stool study for C Diff - patient started on oral Vanc (08/14) CAD - aware, s/p multiple stents, Sees Dr. Hernandez - Cards consulted to discuss risks/benefits of anti-platelet medications; appreciate recs Indeterminate Trop - 0.1, will continue to trend, elevated from baseline - Patient sees Dr. Hernandez outpatient JESSICA vs. CKD - BUN/Cr: - Continue oral rehydration - Continue trending DM2 - SS, ACHS - 07/02/18 A1C: 5 HLD - aware GERD - aware BPH - aware, will continue home meds Code: DNR DISPO: Resolved Upper GI bleed in setting of gastric ulcer- appreciate GI recs for duration of continuation of PPI/whether can transition to oral. Severe CAD- Appreciate cards recs in regards to ASA vs. Plavix. C. diff infection- Continue PO vancomycin. Physical deconditioning- Pt approved for [facility] Discussed with Dr. Blankenship.
[2018-08-16 07:52] LABS: #Eosinphils 0.3 thou/uL (0.0-0.7); #Lymphocytes 0.8 thou/uL (1.20-3.40); #Monocytes 0.8 thou/uL (0.11-0.59); #Neutrophils 5.2 thou/uL (1.40-6.50); %Basophils 0.5 % (0.0-1.0); %Eosinophils 4.5 % (0.0-10.0); %Lymphocytes 11.7 % (21.0-51.0); %Monocytes 11.3 % (0.0-10.0); %Neutrophils 72.1 % (42.0-75.0); Hemoglobin 8.9 g/dL (14.0-18.0); Mean Corpuscular HGB CONC 33.7 g/dL (32.0-36.0); Mean Corpuscular Hemoglobin 30.8 pg (27.0-31.0); Mean Corpuscular Volume 91.5 fL (78.0-98.0); Mean Platelet Volume 9.7 fL (7.4-10.4); Platelet Count 158 thou/uL (130-400); RBC Distribution Width 13.7 % (11.5-14.5); Red Blood Cell (RBC) Count 2.89 mill/uL (4.70-6.10); White Blood Cell (WBC) Count 7.2 thou/uL (4.8-10.8)
[2018-08-16] MEDS: Sucralfate 1 GM TAB PO SCH ×4 (09:11→20:39)
[2018-08-16] MEDS: Carvedilol 25 MG TAB PO SCH ×2 (09:11→20:39)
[2018-08-16] MEDS: Tamsulosin HCl 0.4 MG CAP PO SCH (09:11)
[2018-08-16] MEDS: Folic Acid 1 MG TAB PO SCH (09:12)
[2018-08-16] MEDS: Fluticasone Propionate Nasal Spray 16 gm Bottle NASAL SCH (09:12)
[2018-08-16] MEDS: Amlodipine 5 MG TAB PO SCH (09:12)
--- NOTE | 2018-08-16 11:49 | PRG ---
DATE OF SERVICE: 08/16/2018 Mr. Townsend is a very pleasant 83-year-old white man, who came in with possible melena of versus very dark green stools. In the event, he underwent endoscopy with the GI Service with findings of a gastric ulcer. Biopsies were unable to be obtained because of his recent use of Plavix and aspirin. I am not certain whether or not he has had H. pylori testing, but this can be arranged as an outpatient, if necessary. Clinically, he has improved with no further dark stools. He is tolerating a near normal diet and is nearing time for discharge. His hemoglobin levels are basically unchanged in that he came in with a hemoglobin of 9.8, it is now 8.9. Job ID: [id number]
--- NOTE | 2018-08-16 13:12 | PRG ---
DATE OF SERVICE: 08/16/2018 SUBJECTIVE: This is an 83-year-old hospitalized 3 days ago with abdominal pain, explosive diarrhea, and also history of black tarry stool. However, the stools are actually more greenish than black. He underwent an EGD and found to have multiple gastric polyps and also shallow areas of gastric ulcer and gastric antrum. He was found to have a positive C. difficile in the stool and he has been on vancomycin over the last 48 hours. His diarrhea is slowly getting better. He has not had any bleeding anymore. No abdominal pain. No nausea or vomiting. He is tolerating diet. Blood count did drop down slowly today to 8.9 from 9.3. However, the stools are actually greenish, not black. There is no abdominal pain. No nausea or vomiting. OBJECTIVE: VITAL SIGNS: Afebrile, pulse is 61 and blood pressure 130/67. CARDIOVASCULAR SYSTEM: Within normal limits. LUNGS: Within normal limits. ABDOMEN: Soft. No organomegaly. No tenderness. No masses. CLINICAL IMPRESSION: 1. Multiple gastric polyps. 2. Gastric ulcer and gastric antrum, nonbleeding, underwent endoscopy. 3. Clostridium difficile diarrhea on vancomycin. RECOMMENDATION: From Gastroenterology standpoint, can be discharged on vancomycin. He is advised to come back to see me next week in my clinic. Job ID: [id number]
[2018-08-16] MEDS ORDERED: Nitroglycerin 50 MG/250 ML BOT 0 ML ONE (20:51)
[2018-08-16] MEDS ORDERED: Nitroglycerin 0.4 MG TAB (25 Tab Bottle) ONE (20:53)
[2018-08-17] MEDS: Vancomycin HCl 25 MG/ML Oral PO SCH ×4 (03:32→21:25)
--- NOTE | 2018-08-17 06:00 | PDOC.FM ---
- Subjective Subjective: Overnight had episode of midsternal, crushing chest pain. EKG showed NSR with PAC and 1st degree AVB. Pain resolved with 2L NC and Nitrostat x3. Of note pt has extensive cardiac hx requiring >10x stents. He is on home imdur and ranexa.Tells me his CP is sometimes triggered by emotional stress which occurred yesterday. Currently, pt denies chest pain. Denies abd pain, melena, hametochezia, palpitations, lightheadedess. - Objective MAR Reviewed: Yes Vital Signs & Weight: Vital Signs (12 hours) Temp Pulse Resp BP Pulse Ox 08/17/18 04:00 97.2 F L 83 14 142/68 H 100 08/16/18 23:50 76 20 147/73 H 100 08/16/18 19:58 98.5 F 84 20 130/69 97 08/16/18 19:40 97 Weight Admit Weight 85.094 kg Weight 84.731 kg I&O: 08/15/18 08/16/18 08/17/18 06:59 06:59 06:59 Intake Total 1800 1440 1440 Output Total 750 Balance 8957 400 9693 Result Diagrams: 08/16/18 07:25 08/14/18 05:37 Phys Exam - Physical Examination Constitutional: NAD HEENT: PERRLA, moist MMs, sclera anicteric Respiratory: no wheezing, clear to auscultation bilateral Cardiovascular: RRR, no significant murmur Gastrointestinal: soft, non-tender Neurological: non-focal, moves all 4 limbs Psychiatric: normal affect, A&O x 3 Dx/Plan (1) Gastric ulcer Code(s): K25.9 - GASTRIC ULCER, UNSP ACUTE OR CHRONIC, W/O HEMOR OR PERF Status: Acute (2) GI bleed Code(s): K92.2 - GASTROINTESTINAL HEMORRHAGE, UNSPECIFIED Status: Acute (3) Unstable angina Status: Acute (4) CAD (coronary artery disease) Code(s): I25.10 - ATHSCL HEART DISEASE OF [place] CORONARY ARTERY W/O ANG PCTRS Status: Chronic (5) Diabetes type 2, controlled Code(s): E11.9 - TYPE 2 DIABETES MELLITUS WITHOUT COMPLICATIONS Status: Chronic (6) Dyslipidemia Code(s): E78.5 - HYPERLIPIDEMIA, UNSPECIFIED Status: Chronic (7) GERD (gastroesophageal reflux disease) Code(s): K21.9 - GASTRO-ESOPHAGEAL REFLUX DISEASE WITHOUT ESOPHAGITIS Status: Chronic (8) Hypertension Code(s): I10 - ESSENTIAL (PRIMARY) HYPERTENSION Status: Chronic (9) Obesity (BMI 30.0-34.9) Code(s): E66.9 - OBESITY, UNSPECIFIED Status: Chronic - Plan Plan: Upper GI bleed likely 2/2 gastric ulcer - S/P Day 3 of EGD, which showed non-bleeding gastric ulcer - H/H stable at 8.9/26.5, pt asx - Stable for d/c from GI standpoint per Dr Casey Clostridium difficile infection - Positive stool study for C Diff - patient started on oral Vanc (08/14) CAD - aware, s/p multiple stents, Sees Dr. Hernandez - Cards consulted to discuss risks/benefits of anti-platelet medications; appreciate recs Indeterminate Trop - 0.1, will continue to trend, elevated from baseline - Patient sees Dr. Hernandez outpatient JESSICA vs. CKD - BUN/Cr around baseline per labs 08/14 - Continue oral rehydration DM2 - SS, ACHS - 07/02/18 A1C: 5 HLD - aware GERD - aware BPH - aware, will continue home meds Code: DNR DISPO: 1) Resolved Upper GI bleed in setting of antral gastric ulcer- stable to d/c per Dr. Casey. H. pylori testing outpatient. 2) Severe CAD s/p stents- Appreciate cards recs in regards to ASA vs. Plavix. 3) C. diff infection- Continue PO vancomycin. 4) Physical deconditioning- Pt approved for [facility] Discussed with Dr. Blankenship.
[2018-08-17] MEDS: Carvedilol 25 MG TAB PO SCH ×2 (08:25→21:25)
[2018-08-17] MEDS: Sucralfate 1 GM TAB PO SCH ×4 (08:25→21:25)
[2018-08-17] MEDS: Amlodipine 5 MG TAB PO SCH (08:26)
[2018-08-17] MEDS: Folic Acid 1 MG TAB PO SCH (08:26)
[2018-08-17] MEDS: Tamsulosin HCl 0.4 MG CAP PO SCH (08:26)
[2018-08-17] MEDS: Fluticasone Propionate Nasal Spray 16 gm Bottle NASAL SCH (08:27)
[2018-08-17] MEDS ORDERED: Nitroglycerin 0.4 MG TAB (25 Tab Bottle) SL SCH (09:15)
--- NOTE | 2018-08-17 11:26 | PDOC.EVN ---
Event Note - Event Note Event Note: Discussed with Dr. gibson who rx discontinuing Plavix but okay to restart 81 mg ASA, which Dr. Casey agrees with. Discussed R&B of this with patient who agrees with plan.
[2018-08-17] MEDS ORDERED: Aspirin 81 mg Enteric Coated Tablet PO SCH (11:30)
--- NOTE | 2018-08-17 12:08 | PRG ---
DATE OF SERVICE: 08/17/2018 Mr. Townsend is awake, alert, and cheerful this morning. We are still awaiting placement. We are testing for H pylori, but continuing his PPI, but probably okay to start him back on baby aspirin because of his CAD and stents. Job ID: [id number]
[2018-08-17 14:30] LABS: Ref Lab Test Ordered UREA BREATH; Reference Lab Name LABCORP
[2018-08-18] MEDS: Vancomycin HCl 25 MG/ML Oral PO SCH ×3 (03:31→15:36)
[2018-08-18 05:05] LABS: #Eosinphils 0.3 thou/uL (0.0-0.7); #Lymphocytes 0.9 thou/uL (1.20-3.40); #Monocytes 0.9 thou/uL (0.11-0.59); #Neutrophils 6.4 thou/uL (1.40-6.50); %Basophils 0.5 % (0.0-1.0); %Eosinophils 3.7 % (0.0-10.0); %Lymphocytes 10.6 % (21.0-51.0); %Monocytes 10.7 % (0.0-10.0); %Neutrophils 74.6 % (42.0-75.0); Hemoglobin 8.3 g/dL (14.0-18.0); Mean Corpuscular HGB CONC 33.4 g/dL (32.0-36.0); Mean Corpuscular Hemoglobin 30.4 pg (27.0-31.0); Mean Corpuscular Volume 91.1 fL (78.0-98.0); Mean Platelet Volume 10.2 fL (7.4-10.4); Platelet Count 144 thou/uL (130-400); RBC Distribution Width 13.8 % (11.5-14.5); Red Blood Cell (RBC) Count 2.72 mill/uL (4.70-6.10); White Blood Cell (WBC) Count 8.6 thou/uL (4.8-10.8)
--- NOTE | 2018-08-18 06:16 | PDOC.FM ---
- Subjective Subjective: Naeo. Denies GI bleeding. Still endorsing water stools that have dec. in frequency. Denies chest pain. Ready to go home. - Objective Vital Signs & Weight: Vital Signs (12 hours) Temp Pulse Resp BP Pulse Ox 08/18/18 04:35 97.5 F L 91 20 119/59 L 97 08/17/18 21:21 97.9 F 60 18 126/64 94 L 08/17/18 21:16 94 L Weight Admit Weight 85.094 kg Weight 86.409 kg I&O: 08/16/18 08/17/18 08/18/18 06:59 06:59 06:59 Intake Total 1440 1620 1680 Output Total 750 120 Balance 690 1620 1560 Result Diagrams: 08/18/18 04:27 08/14/18 05:37 Phys Exam - Physical Examination Constitutional: NAD HEENT: PERRLA, moist MMs, sclera anicteric Neck: full ROM Respiratory: no wheezing Cardiovascular: RRR, no significant murmur Gastrointestinal: soft, non-tender Neurological: non-focal, moves all 4 limbs Psychiatric: normal affect, A&O x 3 Dx/Plan (1) Gastric ulcer Code(s): K25.9 - GASTRIC ULCER, UNSP ACUTE OR CHRONIC, W/O HEMOR OR PERF Status: Acute (2) GI bleed Code(s): K92.2 - GASTROINTESTINAL HEMORRHAGE, UNSPECIFIED Status: Resolved (3) Unstable angina Status: Chronic (4) CAD (coronary artery disease) Code(s): I25.10 - ATHSCL HEART DISEASE OF [place] CORONARY ARTERY W/O ANG PCTRS Status: Chronic (5) Diabetes type 2, controlled Code(s): E11.9 - TYPE 2 DIABETES MELLITUS WITHOUT COMPLICATIONS Status: Chronic (6) Dyslipidemia Code(s): E78.5 - HYPERLIPIDEMIA, UNSPECIFIED Status: Chronic (7) GERD (gastroesophageal reflux disease) Code(s): K21.9 - GASTRO-ESOPHAGEAL REFLUX DISEASE WITHOUT ESOPHAGITIS Status: Chronic (8) Hypertension Code(s): I10 - ESSENTIAL (PRIMARY) HYPERTENSION Status: Chronic (9) Obesity (BMI 30.0-34.9) Code(s): E66.9 - OBESITY, UNSPECIFIED Status: Chronic - Plan Plan: Upper GI bleed likely 2/2 gastric ulcer - S/P Day 4 of EGD, which showed non-bleeding gastric ulcer - H/H stable at 8.3/24, pt asx - Stable for d/c from GI standpoint per Dr Casey Clostridium difficile infection - Positive stool study for C Diff - patient started on oral Vanc (08/14) H. pylori infection -Urea breath test neg. but stool antigen positive -Pt is on PPI and has been on PO clinda which could skew results, but there would be more concern for false negatives -Will discuss starting on triple vs. quadruple abx therapy CAD - aware, s/p multiple stents, Sees Dr. Hernandez - Cards consulted to discuss risks/benefits of anti-platelet medications; appreciate recs Indeterminate Trop - 0.1, will continue to trend, elevated from baseline - Patient sees Dr. Hernandez outpatient JESSICA vs. CKD - BUN/Cr around baseline per labs 08/14 - Continue oral rehydration DM2 - SS, ACHS - 07/02/18 A1C: 5 HLD - aware GERD - aware BPH - aware, will continue home meds Code: DNR DISPO: 1) Resolved Upper GI bleed in setting of antral gastric ulcer- stable to d/c and okay to start ASA per Dr. Casey & Benjamin. 2) Severe CAD s/p stents- see above 3) C. diff infection- Continue PO vancomycin for 10 day completion 4 ) Physical deconditioning- Pt approved for [facility] 5) H. pylori disease- will discuss triple vs. quadruple therapy Discussed with Dr. Blankenship.
[2018-08-18] MEDS: Folic Acid 1 MG TAB PO SCH (08:51)
[2018-08-18] MEDS: Amlodipine 5 MG TAB PO SCH (08:51)
[2018-08-18] MEDS: Carvedilol 25 MG TAB PO SCH (08:51)
[2018-08-18] MEDS: Sucralfate 1 GM TAB PO SCH ×3 (08:52→17:37)
[2018-08-18] MEDS: Tamsulosin HCl 0.4 MG CAP PO SCH (08:52)
[2018-08-18] MEDS: Fluticasone Propionate Nasal Spray 16 gm Bottle NASAL SCH (08:55)
[2018-08-18] MEDS ORDERED: Aspirin 81 mg Enteric Coated Tablet PO SCH (09:00)
--- NOTE | 2018-08-18 12:52 | PDOC.CTH ---
Cardiology Progress Note - Subjective The pt seen and examined. No overnight events. No cardiac complaints, except weakness. - Objective Vital Signs Temp Pulse Pulse Pulse Resp BP BP 08/18/18 12:21 97.8 F 84 18 08/18/18 10:15 84 87 117/58 L 129/62 08/18/18 08:48 97.5 F L 79 18 08/18/18 04:35 97.5 F L 91 20 BP Pulse Ox 08/18/18 12:21 122/58 L 98 08/18/18 10:15 08/18/18 08:48 130/68 97 08/18/18 04:35 119/59 L 97 Admit Weight 187 lb 9.6 oz Weight 190 lb 8 oz 08/17/18 08/18/18 08/19/18 06:59 06:59 06:59 Intake Total 1620 1680 Output Total 120 Balance 1620 1560 - Physical Examination General/Neuro: alert & oriented x3 Neck: no JVD present Lungs: CTA Heart: RRR Abdomen: soft Extremities: other: (No edema) - Telemetry Telemetry Rhythm: SR with PACs. - Labs Result Diagrams: 08/18/18 04:27 08/14/18 05:37 Troponin/CKMB Troponin I 0.106 ng/mL (< 0.028) H 08/13/18 15:00 - Assessment/Plan 1. Type 2 NSTEMI - possible 2/2 GI bleed; No ECG changed; Asymptomatic; cont. to monitor 2. GI bleed possible 2/2 Diverticulosis and H. pylori - s/p EGD; stable with ABX IV; holding ASA and Plavix; managed by GI 3. CAD with multiple cath and stent placement - May start ASA 81mg qd when he is stable; 4. HTN - stable 5. DM type 2 - 6. Anemia - stable; may start ASA 81mg qd, but cont. holding Plavix for now. 7. CKD stage 3 - stable 8. HLD - MAR reviewed * From Cardiac standpoint, the pt is stable to tx to Rehab. Pt. seen and eval. by me. I agree with the A/P. Chest clear. RRR. No edema. Review of Systems - Review of Systems Constitutional: reports: weakness EENTM: reports: no symptoms reported Respiratory: reports: no symptoms reported Cardiac (ROS): reports: no symptoms reported ABD/GI: reports: no symptoms reported : reports: no symptoms reported Musculoskeletal: reports: no symptoms reported
--- NOTE | 2018-08-18 14:58 | PRG ---
DATE OF SERVICE: 08/18/2018 Mr. Townsend continues to feel well and we are still awaiting placement. His stool study for H. pylori was positive and we will institute quadruple therapy. His hemoglobin has dropped a bit to 8.3 with this may simply be redistribution and volume repletion. He remains also on a course on a PPI. Job ID: [id number]
[2018-08-18 15:38] VITALS: BP 115/55; TEMP 98.4
--- NOTE | 2018-08-19 04:42 | DIS ---
DATE OF ADMISSION: 08/13/2018 DATE OF DISCHARGE: 08/18/2018 RESIDENT: Sylvie Martínez MD. ADMITTING ATTENDING: Saadia Jackson MD. DISCHARGE ATTENDING: Selvin Ramsay MD. CONSULTS: 1. Gastroenterology, Dr. Dover. 2. Cardiology, Dr. Hernandez. PROCEDURES: EGD: Hiatal hernia, multiple gastric polyps, diffusely hypertrophic polyp appearing mucosa of stomach. Gastric ulcer, gastric antrum with erosion. Normal duodenum. At the time of endoscopy, no active bleeding seen. PRIMARY DIAGNOSES: 1. Suspected upper gastrointestinal bleed secondary to gastric ulcer. 2. Anemia secondary to above. 3. Clostridium difficile infection. 4. H pylori infection. SECONDARY DIAGNOSES: 1. Coronary artery disease, status post multiple stents. 2. Gastroesophageal reflux disease. 3. Hyperlipidemia. 4. Chronic obstructive pulmonary disease. DISCHARGE MEDICATIONS: 1. Aspirin 81 mg p.o. daily. 2. Vancomycin 125 mg p.o. q.6 hours, continue for 5 more days. 3. Protonix 40 mg p.o. b.i.d. 4. Sucralfate 1 g p.o. q.i.d. 5. Norvasc 5 mg p.o. daily. 6. Tylenol regular strength 650 mg p.o. q.4 hours p.r.n. for pain or fever. 7. Ranexa 1000 mg p.o. b.i.d. 8. Lipitor 40 mg p.o. at bedtime. 9. Levemir 24 units subcu b.i.d. 10. Nitrostat 0.4 mg sublingual q.5 minutes p.r.n. for chest pain. 11. Coreg 25 mg p.o. b.i.d. 12. Cholestyramine 1 teaspoon p.o. daily. 13. Isosorbide mononitrate ER 120 mg p.o. daily. 14. Arginine 500 mg p.o. b.i.d. 15. vitamin 1 tablet p.o. daily. 16. Vitamin D3 1000 units p.o. daily. 17. Flonase Allergy Relief one spray each naris daily p.r.n. for rhinorrhea. 18. Flomax 0.4 mg p.o. at bedtime. 19. Vitamin B12 mcg p.o. daily. 20. Co Q enzyme 200 mg p.o. daily. 21. Folic acid 1 mg p.o. daily. DISCONTINUED MEDICATIONS: Plavix 75 mg p.o. daily. HISTORY OF PRESENT ILLNESS AND HOSPITAL COURSE: Mr. Townsend is an 83-year-old male with an extensive cardiac history, status post multiple stents, who presented to the ED as a transfer for report of black stool. There is concern for an upper GI bleed, since the patient had a hemoglobin of 9.8 and so he was admitted for further workup. He underwent an EGD which did not show any signs of acute bleeding, however, did see presence of an antral gastric ulcer. No biopsies were taken due to concern for continuous bleeding since the patient was on dual anti-platelet therapy with Plavix and aspirin for his severe coronary artery disease with multiple stents. The patient did not ever exhibit clinical signs of bleeding nor did he require any PRBCs. He was continued on IV Protonix with continuous clinical monitoring. From a GI bleed point of view, he was cleared and stabilized. Of note, the patient did develop a C. diff infection and has been treated with p.o. vancomycin. He is on day #5 of antibiotics and only to continue for 5 more days. In addition, the patient was tested for H pylori. He had a negative urea breath test, but a positive stool antigen test. Due to concern for false-negative with the urea breath test since patient has been on p.o. antibiotics and a proton pump inhibitor, it was recommended to go ahead and proceed with treatment. After discussing with Dr. Dover, I did proceed with this. He recommended starting triple therapy a couple of months from now once the patient has somewhat stabilized. In addition, Cardiology was consulted in regard to the patient's anti-platelet medications. Decision was made to permanently discontinue the Plavix, but go ahead and continue [address] daily[address] Dover also agreed with this decision as well. Instructions were given that the patient should he continue to exhibit signs of active GI bleeding or dark stools, please discontinue those and follow up immediately. Due to overall physical deconditioning, the patient was transferred over to [facility] to continue physical therapy. DISPOSITION: Stable. DISCHARGE INSTRUCTIONS: 1. Location: [facility]. 2. Diet: Heart healthy, diabetic diet. 3. Activity: As tolerated. 4. Followup: Please follow up with Dr. Quiroz in 2 to 3 days. 5. Please continue vancomycin for 5 more days. 6. Please continue for monitoring clinical signs of GI bleeding and continue p.o. pantoprazole. 7. Once the C. diff infection is cleared, please consider treatment for H pylori in next weeks to a month. Per Dr. Dover, please start triple antibiotic therapy with followup. Job ID: [id number]
== END 2018-08-18 18:15 | disposition short-term general hospital (02) | DRG 377 ==
LOC: ERS 08:13 → ERHOLD 08:45 → 2NO 10:02
PROVIDERS: ADMIT Family Medicine; ATTEND Family Medicine
PROC: 0DJ08ZZ Inspection of Upper Intestinal Tract, Via Natural or Artificial Opening Endoscopic (ICD-10-PCS; principal; 2018-08-13)
DX: K92.2 Gastrointestinal hemorrhage, unspecified (principal); I21.A1 Myocardial infarction type 2; N17.9 Acute kidney failure, unspecified; I13.0 Hypertensive heart and chronic kidney disease with heart failure and stage 1 through stage 4 chronic kidney disease, or unspecified chronic kidney disease; I50.32 Chronic diastolic (congestive) heart failure; A04.72 Enterocolitis due to Clostridium difficile, not specified as recurrent; I25.110 Atherosclerotic heart disease of native coronary artery with unstable angina pectoris; E78.5 Hyperlipidemia, unspecified; N40.0 Benign prostatic hyperplasia without lower urinary tract symptoms; E11.22 Type 2 diabetes mellitus with diabetic chronic kidney disease; N18.3 Chronic kidney disease, stage 3 (moderate); K21.9 Gastro-esophageal reflux disease without esophagitis; E78.00 Pure hypercholesterolemia, unspecified; Z66 Do not resuscitate; K57.90 Diverticulosis of intestine, part unspecified, without perforation or abscess without bleeding; D63.1 Anemia in chronic kidney disease; Z79.4 Long term (current) use of insulin; E66.9 Obesity, unspecified; Z68.29 Body mass index [BMI] 29.0-29.9, adult; K31.7 Polyp of stomach and duodenum; K44.9 Diaphragmatic hernia without obstruction or gangrene; K25.9 Gastric ulcer, unspecified as acute or chronic, without hemorrhage or perforation; B96.81 Helicobacter pylori [H. pylori] as the cause of diseases classified elsewhere
CPT/HCPCS: 36415; 80053; 82728; 83540; 83550; 83880; 85025; 86850; 86900; 86901; 87045; 87046; 87324; 87328; 87329; 87338; 87449; 87493; 93005; 93010; 96361; 96365; C9113; J0696; J2704; Q0162

== ENCOUNTER 2018-09-12 12:53 | Day surgery (SDC) | payer MEDICARE ==
[2018-09-12] MEDS ORDERED: Sodium Chloride 0.9% 30 ML ONE (13:05)
[2018-09-12] MEDS ORDERED: diphenhydrAMINE 25 MG CAP PO SCH (13:30)
[2018-09-12] MEDS ORDERED: Acetaminophen 500 MG TAB PO SCH (13:30)
[2018-09-12 17:53] VITALS: BP 154/72; TEMP 97.5
== END 2018-09-12 17:54 | disposition home or self-care (01) ==
LOC: ONC/OP 12:53
PROVIDERS: ATTEND Nurse Practitioner Acute Care
PROC: 30233N1 Transfusion of Nonautologous Red Blood Cells into Peripheral Vein, Percutaneous Approach (ICD-10-PCS; principal; 2018-09-12)
DX: D64.9 Anemia, unspecified (principal); D69.6 Thrombocytopenia, unspecified
CPT/HCPCS: 36430; 86850; 86900; 86901; 86922; P9016; Q0163

== ENCOUNTER 2018-09-24 05:34 | Day surgery (SDC) | payer MEDICARE ==
--- NOTE | 2018-09-19 06:31 | HP ---
HISTORY OF PRESENT ILLNESS: Iggy Townsend is an 83-year-old male patient with chronic iron-deficiency anemia, requiring serial transfusions and infusions, and I have been asked by Dr. Quiroz and Katerina Morales NP to see him regarding placement of MediPort as his IV access is becoming difficult. The patient is followed by KALA Eduardo. PAST MEDICAL HISTORY: 1. Diabetes mellitus, type 2. 2. Iron-deficiency anemia, frequent blood transfusion requirements. 3. Coronary artery disease, stable without angina currently. He has been followed by Dr. Dior in the past, has multiple stents. He has seen prior to that, now is followed by Dr. Hernandez. 4. Hypertension. PAST SURGICAL HISTORY: 1. Laparoscopic cholecystectomy. 2. Cardiac ablation. 3. Colonoscopies. 4. Upper endoscopies. SOCIAL HISTORY: Tobacco, none. Alcohol, none. ALLERGIES: NONE. MEDICATIONS: 1. Amlodipine. 2. Atorvastatin. 3. Insulin. 4. CoQ10. 5. Coreg. 6. Cholecalciferol. 7. Flonase. 8. Folic acid. 9. Isosorbide. 10. L-Arginine. 11. Levemir. 12. Nitroglycerin p.r.n., although he has not taken this in some time. 13. Protonix. 14. Ranexa. 15. Flomax. 16. TRUEplus lancets. 17. P.r.n. Carafate. REVIEW OF SYSTEMS: Ten-point, noncontributory except as noted above. The patient is ambulatory again. PHYSICAL EXAMINATION: VITAL SIGNS: Weight 190 pounds, 66 inches. HEAD, EARS, EYES, NOSE, AND THROAT: Unremarkable. LUNGS: Clear to auscultation. CARDIAC: Regular rate and rhythm without murmur or gallop. ABDOMEN: Soft. Nontender. EXTREMITIES: Unremarkable. ASSESSMENT: Iron-deficiency anemia, frequent blood transfusions. PLAN: Placement of a MediPort. He understands risks, benefits, and consents. We will plan this as an outpatient tomorrow. Job ID: [id number]
[2018-09-23 12:35] VITALS: BMI 29.7
[2018-09-24] MEDS ORDERED: Fentanyl 100 MCG/2 ML VIAL ONE (06:37)
[2018-09-24] MEDS ORDERED: Lidocaine 2% PF 5 ML VIAL ONE (07:39)
[2018-09-24] MEDS ORDERED: Bupivacaine HCl 0.5%/Epinephrine 1:200,000/PF 30 ml Vial ONE (07:39)
--- NOTE | 2018-09-24 09:24 | RAD ---
Exam: Chest one view HISTORY:Status post Mediport catheter placement Comparison: 07/27/2018 FINDINGS: Cardiac silhouette:Enlarged. Atherosclerosis of the aorta. Stable coronary artery disease. Pulmonary vessels: Slightly prominent Costophrenic angles: Clear LUNGS: Patchy interstitial opacities. Scar/atelectasis in the right lung base. Pneumothorax: None Interval placement of a right-sided Mediport catheter with the distal tip projecting over the right a trium. Stable rightward deviation of the trachea. Osseous abnormalities: None IMPRESSION: 1. Interval placement of a right-sided Mediport catheter. No pneumothorax. 2. Patchy interstitial changes in the lung parenchyma. Or length for edema versus infiltrate.
--- NOTE | 2018-09-24 12:02 | OP ---
DATE OF PROCEDURE: 09/24/2018 PREOPERATIVE DIAGNOSIS: Chronic iron deficiency anemia in need of frequent transfusions with poor IV access. POSTOPERATIVE DIAGNOSIS: Chronic iron deficiency anemia in need of frequent transfusions with poor IV access. PROCEDURE PERFORMED: Right subclavian vein standard-sized PowerPort MediPort. ANESTHESIA: TIVA, local 0.5% Marcaine with epinephrine 30 mL mixed with 2% Xylocaine 10 mL. Fluoroscopy used during the procedure. DESCRIPTION OF PROCEDURE: The patient was taken to the operating room under intravenous sedation. Neck and chest were prepped with ChloraPrep, draped in routine fashion. Local anesthetic was infiltrated in the skin and subcutaneous tissue about the operative site. Trocar catheter was cannulated in the right subclavian vein using infraclavicular approach, threading the J-wire, removing the trocar catheter, enlarging the skin entrance site and creating a subcutaneous pocket with blunt and sharp dissection, gaining hemostasis with cautery. Dilator and Peel-Away sheath were placed with J-wire into the superior vena cava and J-wire and dilator removed. Catheter was placed with the Peel-Away sheath which was removed and fluoroscopically, the catheter tip was placed in optimal position in the superior vena cava and catheter tailored to length and connected to the MediPort which was placed in subcutaneous pocket and secured with 2 interrupted suture of 3-0 Monocryl. Subcutaneous tissue was approximated with 3-0 Monocryl, skin with subdermal 4-0 Monocryl, and [place] glue applied. MediPort accessed with a Sharp needle, aspirated blood, flushed with heparinized saline solution. Fluoroscopic images revealed good line and MediPort placement. Job ID: [id number]
[2018-09-24] MEDS ORDERED: ePHEDrine 50 MG/ML VIAL ONE (13:37)
[2018-09-24] MEDS ORDERED: PROPOFOL 200 MG/20 ML VIAL ONE (13:37)
[2018-09-24] MEDS ORDERED: Lidocaine 1% PF 5 ML VIAL ONE (13:37)
== END 2018-09-24 10:28 | disposition home or self-care (01) ==
LOC: SDC 05:34
PROVIDERS: ATTEND Specialist
PROC: 0JH63WZ Insertion of Totally Implantable Vascular Access Device into Chest Subcutaneous Tissue and Fascia, Percutaneous Approach (ICD-10-PCS; principal; 2018-09-24)
DX: D50.9 Iron deficiency anemia, unspecified (principal); E11.9 Type 2 diabetes mellitus without complications; I25.10 Atherosclerotic heart disease of native coronary artery without angina pectoris; I10 Essential (primary) hypertension; Z79.4 Long term (current) use of insulin; Z79.82 Long term (current) use of aspirin; Z79.899 Other long term (current) drug therapy; Z91.018 Allergy to other foods
CPT/HCPCS: 36561; 71045; 82962; C1788; 36416; J0670; J0690; J1642; J2001; J2704; J3010; J3490

== ENCOUNTER 2019-11-06 05:10 | Outpatient (CLI) | payer MEDICARE, OTHER ==
[2019-11-07 12:33] LABS: SARS-CoV-2 MS2 Positive; SARS-CoV-2 N Gene Negative; SARS-CoV-2 S Gene Negative; SARS-CoV-2 orf1ab Negative
== END 2019-11-06 05:11 | disposition home or self-care (01) ==
LOC: LABBT 05:10
PROVIDERS: ATTEND Internal Medicine Gastroenterology
DX: Z01.812 Encounter for preprocedural laboratory examination (principal); Z11.59 Encounter for screening for other viral diseases; D50.0 Iron deficiency anemia secondary to blood loss (chronic)
CPT/HCPCS: 87635; U0003

== ENCOUNTER 2019-11-10 06:22 | Day surgery (SDC) | payer MEDICARE ==
[2019-11-05 10:28] VITALS: BMI 29.3
--- NOTE | 2019-11-10 06:26 | HP ---
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 The patient received multiple courses of vancomycin and Flagyl combination. Most recently, he was on Vancomycin taper and his diarrhea had markedly improved. He has no diarrhea. Because of recurrent C difficile diarrhea, he comes in for colonoscopy and to have fecal microbial transplant. ALLERGIES: NO KNOWN DRUG ALLERGIES. MEDICAL ILLNESSES: 1. Diabetes mellitus. 2. Vitamin B12 deficiency. 3. Coronary artery disease. 4. Recurrent C difficile colitis. 5. Coronary artery disease. PHYSICAL EXAMINATION: VITAL SIGNS: Pulse is 70, blood pressure 130/70_. HEENT: Conjunctivae clear. CARDIOVASCULAR SYSTEM: Normal heart sounds. LUNGS: Clear to auscultation. ABDOMEN: Soft. non distended ._No tenderness. No masses felt. ADMITTING DIAGNOSES: An 84-year-old male with recurrent Clostridium difficile colitis, has had several courses of vancomycin and Flagyl. Most recently, he was on vancomycin taper. He has no diarrhea, no abdominal pain, no fever. The patient comes in for a colonoscopy and fecal microbial transplant. Job ID: [id number] [facility]
[2019-11-10] MEDS ORDERED: Ketamine 50 MG/ML (10ML VIAL) ONE (07:47)
[2019-11-10] MEDS ORDERED: PROPOFOL 200 MG/20 ML VIAL ONE (12:27)
--- NOTE | 2019-11-11 07:51 | OP ---
DATE OF PROCEDURE: 11/10/2019 PROCEDURE PERFORMED: Colonoscopy with fecal microbial transplant. PREOPERATIVE DIAGNOSES: Recurrent Clostridium difficile colitis. The patient has had three episodes of colitis in 2019. The patient received Flagyl and also vancomycin and most recently on vancomycin taper. He is off the vancomycin for two weeks now. The patient is asymptomatic at the present time. He is undergoing colonoscopy with fecal microbial transplant. POSTOPERATIVE DIAGNOSES: 1. 3 to 4 small polyps in the left colon, transverse colon, not removed on examination. 2. Mild diverticular disease. 3. Colon shows no colitis, the mucosa appears healthy. DESCRIPTION OF PROCEDURE: The patient was placed on his left lateral position and was given sedation by Anesthesia Department. A rectal exam was done before the scope was advanced into the rectum. No lesions felt on rectal exam. A Pentax video colonoscope was introduced in the rectum and advanced all the way to the cecum. The prep was very good. The mucosa appears normal throughout the colon with normal vascular pattern. In the appendiceal orifice, ileocecal valve, and cecum, no lesions. The patient had 3 polyps in the colon of varying sizes, but they appeared endoscopically benign. One was seen in the left colon and two were seen in transverse colon. They were not removed because of the fecal microbial transplant. After reaching the cecum, the fecal microbial transplantation which was described before rectum, slowly all the way to the left colon. The scope was removed. DISCHARGE PLAN: This is an 84-year-old male with recurrent C difficile colitis, came for fecal microbial transplant. He underwent colonoscopy with microbial transplant. He did well postprocedure. DISCHARGE INSTRUCTIONS: The patient advised to call me if he develops any abdominal pain, fever, or diarrhea Job ID: [id number]
== END 2019-11-10 11:10 | disposition home or self-care (01) ==
LOC: SDC 06:22
PROVIDERS: ATTEND Internal Medicine Gastroenterology
PROC: 3E0H8GC Introduction of Other Therapeutic Substance into Lower GI, Via Natural or Artificial Opening Endoscopic (ICD-10-PCS; principal; 2019-11-10)
DX: A04.71 Enterocolitis due to Clostridium difficile, recurrent (principal); K63.5 Polyp of colon; K57.30 Diverticulosis of large intestine without perforation or abscess without bleeding; E11.9 Type 2 diabetes mellitus without complications; E53.8 Deficiency of other specified B group vitamins; I25.10 Atherosclerotic heart disease of native coronary artery without angina pectoris; M19.90 Unspecified osteoarthritis, unspecified site; Z87.891 Personal history of nicotine dependence; Z79.4 Long term (current) use of insulin; Z79.82 Long term (current) use of aspirin; Z79.899 Other long term (current) drug therapy; Z91.018 Allergy to other foods; Z95.5 Presence of coronary angioplasty implant and graft
CPT/HCPCS: 36416; J1642; J2704